=== PATIENT | female | born 1960 | race Caucasian/White ===

== ENCOUNTER 2018-01-18 13:46 | Emergency (ER) | payer MEDICARE | END 2018-01-18 15:18 | disposition home or self-care (01) | LOC: ERS 13:46 | DX: R53.1 Weakness (principal); I10 Essential (primary) hypertension; M81.0 Age-related osteoporosis without current pathological fracture; G89.29 Other chronic pain; F41.9 Anxiety disorder, unspecified; F17.210 Nicotine dependence, cigarettes, uncomplicated; Z79.899 Other long term (current) drug therapy | CPT/HCPCS: 99283 ==

== ENCOUNTER 2018-03-13 14:09 | Outpatient (CLI) | payer MEDICARE | END 2018-03-13 14:10 | disposition home or self-care (01) | LOC: BICRAD 14:09 | PROVIDERS: ATTEND Internal Medicine Gastroenterology | DX: K62.89 Other specified diseases of anus and rectum (principal); R19.7 Diarrhea, unspecified | CPT/HCPCS: 74018 ==

== ENCOUNTER 2018-04-28 13:46 | Outpatient (CLI) | payer MEDICARE | END 2018-04-28 13:47 | disposition home or self-care (01) | LOC: BICULT 13:46 | PROVIDERS: ATTEND Specialist | DX: I65.29 Occlusion and stenosis of unspecified carotid artery (principal) | CPT/HCPCS: 93880 ==

== ENCOUNTER 2018-08-16 12:32 | Outpatient (CLI) | payer MEDICARE ==
--- NOTE | 2018-08-16 15:21 | RAD ---
MODIFIED BARIUM SWALLOW IN THE PRESENCE OF SPEECH PATHOLOGIST 08/16/18 HISTORY: Dysphagia, oropharyngeal phase. Feeding difficulties, hoarseness. EXPOSURE: 2 minutes. 10.04 mGy. FINDINGS: In the presence of speech pathologist, the patient administered thin liquid, nectar thick, pudding an d solid consistencies. There is evidence of penetration with residue upon administration of thin liquid. There is a delay in initiation of swallowing with the puree and solid consistencies. Please refer to speech pathologist' s report for feeding recommendation. IMPRESSION: Please refer to speech pathologist's report for feeding recommendation. POS: [facility]
== END 2018-08-16 12:33 | disposition home or self-care (01) ==
LOC: RAD 12:32
PROVIDERS: ATTEND Otolaryngology Plastic Surgery within the Head & Neck
DX: R13.12 Dysphagia, oropharyngeal phase (principal); R63.3 Feeding difficulties; R49.0 Dysphonia
CPT/HCPCS: 74230; G8996-GN-CJ; G8997-GN-CI

== ENCOUNTER 2018-08-29 13:47 | Outpatient (CLI) | payer MEDICARE ==
--- NOTE | 2018-08-29 16:57 | MRI ---
MRI OF LUMBAR SPINE WITHOUT CONTRAST: 08/29/18 HISTORY: Lumbar spondyloarthritis. Chronic back pain. COMPARISON: None. TECHNIQUE: MRI of the lumbar spine is performed without intravenous gadolinium administration. Multisequential, multiplanar imaging is performed. FINDINGS: There is T1 narrow signal hypointensity with associated T2 and STIR hyperintensity involving the infe rior end plate of L4, superior end plate of L5 compatible with type I Modic change. There is associat ed 4 mm of anterolisthesis of L4 upon L5. Small amount of fluid in both facet joints is noted. There is mild edema involving the right pedicle at L5. Symmetric signal intensity of the psoas muscles. There is a T2 hyperintensity in the lower pole of th e right kidney measuring 1 cm compatible with a cyst. Conus medullaris terminates at the T12-L1 disc space level. T12-L1: Adequate disc hydration. No significant central canal stenosis. Neural foramina are patent. L1-L2: Adequate disc hydration. No significant central canal stenosis. Neural foramina are patent. L2-L3: Adequate disc hydration. No significant posterior disc abnormality. No significant central can al stenosis. Right neural foramen is patent. Left neural foramen is minimally narrowed. L3-L4: Adequate disc hydration. No significant loss of disc space height. No significant posterior di sc abnormality. No significant central canal stenosis. Neural foramina are patent bilaterally. L4-L5: Broad based disc bulge, ligamentum flavum thickening or facet hypertrophy result in moderate c entral canal stenosis. Moderate right and mild to moderate left foraminal narrowing. L5-S1: No significant central canal stenosis. Neural foramina are patent. IMPRESSION: 1. Type I Modic changes L4-L5 with associated edema involving the posterior elements on the righ t at L5. 2. Moderate central canal stenosis at L4-L5. POS: [facility]
== END 2018-08-29 13:48 | disposition home or self-care (01) ==
LOC: BICMRI 13:47
PROVIDERS: ATTEND Specialist
DX: M47.896 Other spondylosis, lumbar region (principal); M48.061 Spinal stenosis, lumbar region without neurogenic claudication
CPT/HCPCS: 72148

== ENCOUNTER 2018-10-09 11:40 | Emergency (ER) | payer MEDICARE ==
[2018-10-09] MEDS ORDERED: Ketorolac Tromethamine 30 MG/ML VIAL ONE (13:15)
== END 2018-10-09 13:20 | disposition home or self-care (01) ==
LOC: ERS 11:40
DX: G89.29 Other chronic pain (principal); M54.5 Low back pain; I10 Essential (primary) hypertension; M81.0 Age-related osteoporosis without current pathological fracture; F41.9 Anxiety disorder, unspecified; F17.210 Nicotine dependence, cigarettes, uncomplicated; Z79.899 Other long term (current) drug therapy
CPT/HCPCS: 96372; J1885

== ENCOUNTER 2018-10-11 11:07 | Emergency (ER) | payer MEDICARE ==
[2018-10-11] MEDS ORDERED: Ketorolac Tromethamine 60 MG/2 ML VIAL ONE (11:34)
== END 2018-10-11 11:54 | disposition home or self-care (01) ==
LOC: ERS 11:07
DX: G89.29 Other chronic pain (principal); M54.9 Dorsalgia, unspecified; I10 Essential (primary) hypertension; F17.210 Nicotine dependence, cigarettes, uncomplicated; F41.9 Anxiety disorder, unspecified; Z79.899 Other long term (current) drug therapy
CPT/HCPCS: 96372; J1885

== ENCOUNTER 2019-02-16 12:18 | Outpatient (CLI) | payer MEDICARE ==
--- NOTE | 2019-02-16 15:25 | RAD ---
BARIUM SWALLOW: HISTORY: Dysphagia. The patient feels that things get stuck in her throat. COMPARISON: 05/24/2017 FINDINGS: A double-contrast barium swallow is performed with air and barium. Esophageal motility is normal. N o esophageal strictures are seen. the patient aspirated a small amount of barium during the examinat ion, which was initially seen with administration of the barium tablet with water. The barium tablet paused initially at the gastroesophageal junction but eventually passed into the stomach, with an ad ditional sip of water. No gastroesophageal reflux is seen during the examination. There is no evidence of a hiatal hernia. IMPRESSION: 1. No esophageal abnormality or stricture. 2. There was aspiration of a small amount of barium. POS: [facility]
== END 2019-02-16 12:19 | disposition home or self-care (01) ==
LOC: RAD 12:18
PROVIDERS: ATTEND Physician Assistant Medical
DX: R13.12 Dysphagia, oropharyngeal phase (principal)
CPT/HCPCS: 74220

== ENCOUNTER 2019-05-10 13:56 | Outpatient (CLI) | payer MEDICARE ==
--- NOTE | 2019-05-10 14:18 | RAD ---
XR Lumbar Spine Min 4 View History: Low back pain Comparison: MRI August 2018 Findings: Moderate dextro scoliosis lumbar spine. Asymmetric right worse than left SI joint degenerat shadi disease. No acute fracture or malalignment. There is 2 mm L4 over L5 anterolisthesis. Multilevel degenerative disc space height loss. No dilated loops of bowel. Impression: Chronic degenerative changes. No acute fracture or malalignment.
== END 2019-05-10 13:57 | disposition home or self-care (01) ==
LOC: BICRAD 13:56
PROVIDERS: ATTEND Specialist
DX: M54.5 Low back pain (principal); M47.816 Spondylosis without myelopathy or radiculopathy, lumbar region
CPT/HCPCS: 72110

== ENCOUNTER 2019-05-26 19:02 | Emergency (ER) | payer MEDICARE ==
--- NOTE | 2019-05-26 20:14 | RAD ---
EXAM: Chest one view: HISTORY: Altered mental status COMPARISON: 08/07/2016 FINDINGS: Heart size: Within normal limits. Lungs: Clear of acute process. No evidence for pneumonia, pleural effusion, acute edema, or pneumothorax, or other significant acute process. IMPRESSION: No significant acute intrathoracic disease.
[2019-05-26 20:35] LABS: #Basophils 0.1 thou/uL (0.0-0.2); #Lymphocytes 1.5 thou/uL (1.20-3.40); #Monocytes 0.9 thou/uL (0.11-0.59); #Neutrophils 8.3 thou/uL (1.40-6.50); %Basophils 0.5 % (0.0-1.0); %Eosinophils 0.4 % (0.0-10.0); %Lymphocytes 13.5 % (21.0-51.0); %Neutrophils 77.6 % (42.0-75.0); Hemoglobin 13.3 g/dL (12.0-16.0); Mean Corpuscular HGB CONC 34.4 g/dL (32.0-36.0); Mean Corpuscular Hemoglobin 34.2 pg (27.0-31.0); Mean Corpuscular Volume 99.5 fL (78.0-98.0); Mean Platelet Volume 7.2 fL (7.4-10.4); Platelet Count 280 thou/uL (130-400); Red Blood Cell (RBC) Count 3.89 mill/uL (4.20-5.40); White Blood Cell (WBC) Count 10.7 thou/uL (4.8-10.8)
[2019-05-26 20:53] LABS: ALT (SGPT) 22 U/L (8-55); AST (SGOT) 21 U/L (5-34); Acetaminophen Less than 6.0 mcg/mL (10.0-30.0); Albumin 3.8 g/dL (3.5-5.0); Alcohol Less than 10 mg/dL (Less than 10); Alkaline Phosphatase 102 U/L (40-150); Anion Gap 13 mmol/L (10-20); BUN (Urea Nitrogen) 5 mg/dL (9.8-20.1); Bilirubin, Total 0.7 mg/dL (0.2-1.2); Calc. Creatinine Clearance 0 mL/min (70-130); Calcium 8.5 mg/dL (7.8-10.44); Carbon Dioxide 21 mmol/L (22-29); Chloride 97 mmol/L (98-107); Estimated GFR-MDRD Greater than 90; Glucose 124 mg/dL (70-105); Magnesium 1.4 mg/dL (1.6-2.6); Potassium 3.1 mmol/L (3.5-5.1); Protein, Total 6.8 g/dL (6.0-8.3); Salicylate Less than 8.0 mg/dL (15.0-30.0); Sodium 128 mmol/L (136-145)
[2019-05-26] MEDS ORDERED: HYDROcodone/Acetaminophen 10/325 mg Tablet ONE (21:40)
== END 2019-05-26 21:48 | disposition home or self-care (01) ==
LOC: ERS 19:02
DX: M54.5 Low back pain (principal); G89.29 Other chronic pain; F41.9 Anxiety disorder, unspecified; F17.210 Nicotine dependence, cigarettes, uncomplicated; I10 Essential (primary) hypertension; M81.0 Age-related osteoporosis without current pathological fracture
CPT/HCPCS: 36415; 71045; 80053; 80307; 83690; 83735; 84484; 85025; 96360

== ENCOUNTER 2019-06-06 13:28 | Outpatient (CLI) | payer MEDICARE ==
--- NOTE | 2019-06-06 15:52 | CT ---
CT lumbar spine noncontrast HISTORY: Fall. Low back injury. FINDINGS: Images including the retroperitoneum show prominent calcification throughout the arterial s tructures. Vertebral body heights of lumbar spine are maintained. Osseous structures are diffusely demineralized . T12-L1, L1-2, L2-3, L3-4: Mild osteophytosis. No significant central canal or foraminal stenoses. L4-5: Disc space narrowing, gas disc phenomenon, and prominent sclerotic endplate changes. Grade 1 de generative spondylolisthesis. Prominent posterior disc bulge and circumferential degenerative changes. Severe stenosis of the central canal and right neural foramen. Moderate stenosis of the left neural foramen. L5-S1: Minimal disc bulge. Osteophytosis of the facets. Thecal sac and neural foramina remain patent. IMPRESSION: No evidence of acute lumbar compression fracture. Severe degenerative changes at the L4-5 level, including severe central canal and right foraminal miranda noses. Osteoporosis. Atherosclerosis.
== END 2019-06-06 13:29 | disposition home or self-care (01) ==
LOC: BICCT 13:28
PROVIDERS: ATTEND Specialist
DX: S39.92XA Unspecified injury of lower back, initial encounter (principal); M47.816 Spondylosis without myelopathy or radiculopathy, lumbar region; M48.061 Spinal stenosis, lumbar region without neurogenic claudication; I70.90 Unspecified atherosclerosis; M85.88 Other specified disorders of bone density and structure, other site
CPT/HCPCS: 72131

== ENCOUNTER 2019-08-22 11:05 | Emergency (ER) | payer MEDICARE ==
[2019-08-22] MEDS ORDERED: HYDROcodone/Acetaminophen 5/325 mg Tablet ONE (14:14)
== END 2019-08-22 12:24 | disposition home or self-care (01) ==
LOC: ERS 11:05
DX: R19.7 Diarrhea, unspecified (principal); G89.29 Other chronic pain
CPT/HCPCS: 99283

== ENCOUNTER 2019-09-15 16:21 | Inpatient (IN) | payer MEDICARE ==
--- NOTE | 2019-09-15 16:40 | RAD ---
EXAM: Single view of the chest HISTORY: Chest pain COMPARISON: 05/26/2019 FINDINGS: Single view of the chest shows a normal sized cardiomediastinal silhouette. There is no dexter dence of consolidation, mass, or pleural effusion. The bones are unremarkable. IMPRESSION: No evidence of acute cardiopulmonary disease
[2019-09-15 16:43] LABS: #Basophils 0.1 thou/uL (0.0-0.2); #Eosinphils 0.1 thou/uL (0.0-0.7); #Lymphocytes 2.4 thou/uL (1.20-3.40); #Monocytes 0.8 thou/uL (0.11-0.59); %Eosinophils 0.9 % (0.0-10.0); %Lymphocytes 28.7 % (21.0-51.0); %Monocytes 9.6 % (0.0-10.0); %Neutrophils 59.8 % (42.0-75.0); Hemoglobin 14.8 g/dL (12.0-16.0); Mean Corpuscular HGB CONC 34.3 g/dL (32.0-36.0); Mean Corpuscular Hemoglobin 32.8 pg (27.0-31.0); Mean Corpuscular Volume 95.7 fL (78.0-98.0); Mean Platelet Volume 6.6 fL (7.4-10.4); Platelet Count 368 thou/uL (130-400); RBC Distribution Width 12.9 % (11.5-14.5); White Blood Cell (WBC) Count 8.4 thou/uL (4.8-10.8)
[2019-09-15 17:01] LABS: ALT (SGPT) 8 U/L (8-55); AST (SGOT) 16 U/L (5-34); Albumin 3.5 g/dL (3.5-5.0); Alkaline Phosphatase 82 U/L (40-110); Anion Gap 15 mmol/L (10-20); BUN (Urea Nitrogen) Less than 4 mg/dL (9.8-20.1); Bilirubin, Total 0.7 mg/dL (0.2-1.2); CK (CPK) 74 U/L (29-168); Calc. Creatinine Clearance 0 mL/min (70-130); Calcium 8.6 mg/dL (7.8-10.44); Carbon Dioxide 32 mmol/L (22-29); Chloride 88 mmol/L (98-107); Estimated GFR-MDRD Greater than 90; Glucose 87 mg/dL (70-105); Protein, Total 6.5 g/dL (6.0-8.3); Sodium 133 mmol/L (136-145)
[2019-09-15 17:15] LABS: Potassium 1.9 mmol/L (3.5-5.1)
[2019-09-15 19:17] LABS: ALT (SGPT) Less than 7 U/L (8-55); AST (SGOT) 15 U/L (5-34); Albumin 3.5 g/dL (3.5-5.0); Alkaline Phosphatase 81 U/L (40-110); Anion Gap 14 mmol/L (10-20); BUN (Urea Nitrogen) Less than 4 mg/dL (9.8-20.1); Bilirubin, Total 0.7 mg/dL (0.2-1.2); Calc. Creatinine Clearance 0 mL/min (70-130); Calcium 8.8 mg/dL (7.8-10.44); Carbon Dioxide 33 mmol/L (22-29); Chloride 89 mmol/L (98-107); Estimated GFR-MDRD Greater than 90; Glucose 89 mg/dL (70-105); Protein, Total 6.5 g/dL (6.0-8.3); Sodium 134 mmol/L (136-145)
[2019-09-15 19:19] LABS: Potassium 1.9 mmol/L (3.5-5.1)
[2019-09-15] MEDS ORDERED: Potassium Chloride 20 MEQ TAB ONE (19:35)
[2019-09-15] MEDS ORDERED: Morphine 4 MG/ML VIAL ONE (19:35)
[2019-09-15] MEDS ORDERED: D5 1/2 NS w/40 mEq KCL 1,000 ML IV SCH (20:45)
[2019-09-15 23:46] VITALS: BMI 17.7
[2019-09-16] MEDS ORDERED: ALPRAZolam 1 MG TAB PO SCH ×2 (00:45→21:00)
[2019-09-16] MEDS: OxyCODONE IR 30 MG TAB PO PRN ×2 (00:52→06:33)
[2019-09-16] MEDS ORDERED: Senokot S 8.6-50 MG TAB PO PRN (05:44)
[2019-09-16] MEDS ORDERED: Acetaminophen 325 MG TAB PO PRN (05:44)
[2019-09-16] MEDS ORDERED: D5 NS w/ 40 mEq KCl 1,000 ML IV SCH (05:45)
[2019-09-16 07:42] VITALS: BP 136/73; TEMP 98.6
[2019-09-16 07:49] LABS: Anion Gap 18 mmol/L (10-20); BUN (Urea Nitrogen) Less than 4 mg/dL (9.8-20.1); Calc. Creatinine Clearance 84 mL/min (70-130); Calcium 8.5 mg/dL (7.8-10.44); Carbon Dioxide 22 mmol/L (22-29); Chloride 98 mmol/L (98-107); Estimated GFR-MDRD Greater than 90; Glucose 144 mg/dL (70-105); Magnesium 1.8 mg/dL (1.6-2.6); Potassium 3.5 mmol/L (3.5-5.1); Sodium 134 mmol/L (136-145)
[2019-09-16] MEDS ORDERED: Enoxaparin Sodium 40 MG/0.4 ML SYRINGE SC SCH (09:00)
[2019-09-16] MEDS ORDERED: FLU VACC QS2019-20(6MOS UP)/PF 60 MCG/0.5 ML SYRINGE IM ONE (09:00)
--- NOTE | 2019-09-16 09:18 | HP ---
PRIMARY CARE PHYSICIAN: Tonia Castro. CHIEF COMPLAINT: Worsening back pain and shortness of breath. HISTORY OF PRESENT ILLNESS: A 58-year-old female with known history of osteoporosis, degenerative joint disease of the spine with spinal stenosis associated with chronic back pain as well as COPD, who presents to the ED due to worsening back pain associated with shortness of breath. The patient reported feeling unwell in the last 5 days associated with poor appetite. She also noticed worsening back pain as she has ran out of her usual medications. On further questioning, the patient reported constipation with no bowel movement motion in the last 4 to 5 days. She however admitted to intermittent constipation and diarrhea and had to take Imodium when she has diarrhea. A friend had told her that she was not looking well and had asked her to go to the ER. Evaluation in the ER showed severe hypokalemia, potassium of 1.9 associated with EKG changes of U-wave. The patient was admitted for further evaluation. She was treated with potassium supplementation with improvement. The patient however denied cough, nasal congestion and said that the shortness of breath occurred yesterday while she was crying for severe back pain. She denied fever, chills, wheezing, orthopnea, exertional dyspnea. The patient reported bouts of diarrhea prior to current constipation and has not been eating well in the last few days. She also reported generalized weakness. Though the patient complained of shortness of breath on presentation to the ER, SpO2 was 98% on room air and there was no obvious respiratory distress. However, pain was 10/10. The patient this morning wants to leave the hospital as she feels well and desires to be discharged. PAST MEDICAL HISTORY: 1. Osteoporosis. 2. Osteoarthritis/degenerative joint disease of the spine. 3. Spinal stenosis. 4. Chronic back pain. 5. Anxiety. 6. COPD. PAST SURGICAL HISTORY: None. FAMILY HISTORY: Significant for coronary artery disease in sister and brother. SOCIAL HISTORY: The patient lives alone. The patient denied alcohol use. Reported smoking since 14 years, though claimed to have stopped about 5 years ago, but on subsequent evaluation, it looks like she continues to smoke 2 cigars per day. She denied recreational drug use. ALLERGIES: AZITHROMYCIN. HOME MEDICATIONS: 1. Xanax 2 mg p.o. daily at bedtime. 2. Omeprazole 40 mg p.o. daily. 3. Oxycodone 30 mg t.i.d. 4. The patient also reported using Imodium as needed and also takes some laxative at home as well. REVIEW OF SYSTEMS: 12-point review of system performed was negative other than pertinent positives and negatives included in the history of present illness. is deferred. The patient denied leg swelling, dysuria, hematuria, nausea, vomiting, hematochezia, hematemesis, fever, or chills. PHYSICAL EXAMINATION: VITAL SIGNS: Temperature 98.6, pulse 72, respiratory rate 16, SpO2 of 92% on room air, blood pressure is 136/73. GENERAL: Thin female, in no obvious distress. Afebrile. Anicteric. Acyanotic. HEENT: Normocephalic, atraumatic. Oral mucosa is moist. NECK: Supple. Nontender with good range of motion. No obvious masses or lymphadenopathy appreciated. CARDIOVASCULAR: Regular rhythm and rate with normal heart sounds 1 and 2. RESPIRATORY: Fair air entry bilaterally with no obvious crackle or rhonchi or use of accessory muscles. GI: Full, soft, nontender, nondistended with normal bowel sounds. EXTREMITIES: Pain but otherwise grossly normal looking atraumatic with no edema or erythema. METERMAN: Conscious and alert, oriented x3 with appropriate mental status. Cranial nerves 2 through 12 are grossly intact. The patient moves all extremities. The patient is ambulant. PSYCHIATRIC: The patient seems anxious. DIAGNOSTIC DATA: CBC on September 15 showed WBC count of 8.4, hemoglobin of 14.8, MCV of 95.7, platelet of 368. BMP today showed today, September 16, showed sodium 134, potassium 3.5, chloride 98, CO2 of 22, BUN less than 4, creatinine 0.53, glucose 144, calcium 8.5, magnesium 1.8. Of note, however, on presentation on September 15, the patient had the following CMP: Sodium 133, potassium 1.9, chloride 88, CO2 of 32, BUN less than 4, creatinine 0.53, glucose 87, calcium 8.6, total bilirubin 0.7, AST 16, ALT 8, alkaline phosphatase 82, CK 74, total protein 6.5, albumin 3.5, globulin 3.0. Chest x-ray performed on September 15 showed normal cardiomediastinal silhouette with no evidence of consolidation, mass or pleural effusion. EKG on presentation showed normal sinus rhythm with rate of 63. No obvious ischemic changes were noted. However, low voltages were seen. ASSESSMENT: 1. Severe hypokalemia. 2. Hyponatremia. 3. Volume depletion from poor oral intake with contraction alkalosis. 4. Gjck-fv-aneilybr protein calorie malnutrition. 5. Chronic intermittent constipation from narcotic use. 6. Chronic back pain on chronic narcotic use. 7. Chronic intermittent diarrhea. 8. Chronic tobacco abuse disorder. 9. Chronic obstructive pulmonary disease. 10. Gastroesophageal reflux disease, on PPI. 11. Anxiety disorder, on Xanax. PLAN: 1. We will continue potassium supplementation. 2. Laxative will be provided to treat constipation. 3. Bronchodilators as needed will be provided. 4. [place] oral intake as well as oral dietary supplementation will be recommended. We will monitor sodium, potassium and magnesium and replete as needed. Continue IV fluid therapy. Job ID: [id number]
--- NOTE | 2019-09-16 09:20 | DIS ---
DATE OF ADMISSION: 09/15/2019 DATE OF DISCHARGE: 09/16/2019 PRIMARY CARE PHYSICIAN: . DISCHARGE DIAGNOSES: 1. Severe hypokalemia. 2. Hyponatremia. 3. Volume depletion. 4. Constipation. 5. Mild protein calorie malnutrition. 6. Chronic back pain with acute exacerbation. 7. Chronic spinal stenosis. 8. Degenerative joint disease of the spine. 9. Chronic obstructive pulmonary disease without acute exacerbation. 10. Anxiety disorder. HOSPITAL COURSE: A 58-year-old female admitted due to worsening back pain associated with shortness of breath. Evaluation revealed severe hypokalemia as well as hyponatremia and metabolic alkalosis. The patient also reported constipation and poor oral intake. Impression of volume depletion from poor oral intake as well as severe hypokalemia from poor oral intake and chronic diarrhea was made and the patient was treated with IV fluid and potassium supplementation. She also received laxative with improvement of constipation. The patient; however, insisted on leaving even against medical advice. Decision was then made to discharge the patient with a close followup with PCP for subsequent evaluation of electrolytes and further treatment. She also was advised to start oral dietary supplement b.i.d. Prescription for potassium, magnesium, and MiraLAX were provided. DISCHARGE MEDICATIONS: 1. Omeprazole 40 mg p.o. daily. 2. Oxycodone 30 mg t.i.d. 3. Magnesium oxide 400 mg p.o. daily for 7 days. 4. MiraLAX 17 g p.o. b.i.d. x60 packs. 5. Potassium chloride 10 mEq p.o. b.i.d. for 7 days. 6. Xanax 2 mg p.o. daily at bedtime as needed. FOLLOWUP: The patient is to follow up with PCP within seven days of discharge. Job ID: [id number]
== END 2019-09-16 08:55 | disposition home or self-care (01) | DRG 641 ==
LOC: ERS 16:21 → 2NO 23:39
PROVIDERS: ADMIT Internal Medicine; ATTEND Internal Medicine
DX: E87.6 Hypokalemia (principal); E44.1 Mild protein-calorie malnutrition; Z68.1 Body mass index [BMI] 19.9 or less, adult; Z23 Encounter for immunization; E87.1 Hypo-osmolality and hyponatremia; J44.9 Chronic obstructive pulmonary disease, unspecified; K59.00 Constipation, unspecified; G89.29 Other chronic pain; F41.9 Anxiety disorder, unspecified; E87.3 Alkalosis; M81.0 Age-related osteoporosis without current pathological fracture; M19.90 Unspecified osteoarthritis, unspecified site; M48.00 Spinal stenosis, site unspecified; F17.290 Nicotine dependence, other tobacco product, uncomplicated; K59.09 Other constipation; K21.9 Gastro-esophageal reflux disease without esophagitis; K52.9 Noninfective gastroenteritis and colitis, unspecified; E86.9 Volume depletion, unspecified; Z79.899 Other long term (current) drug therapy
CPT/HCPCS: 36415; 36416; 71045; 80048; 80053; 82550; 83735; 84484; 85025; 93005; 96365; 96366; 96375; J2270; J3480; J7042

== ENCOUNTER 2019-09-19 08:26 | Emergency (ER) | payer MEDICARE ==
[2019-09-19 09:03] LABS: #Eosinphils 0.1 thou/uL (0.0-0.7); #Lymphocytes 1.8 thou/uL (1.20-3.40); #Monocytes 0.8 thou/uL (0.11-0.59); #Neutrophils 7.9 thou/uL (1.40-6.50); %Basophils 0.1 % (0.0-1.0); %Eosinophils 1.3 % (0.0-10.0); %Lymphocytes 16.8 % (21.0-51.0); %Monocytes 7.8 % (0.0-10.0); %Neutrophils 73.9 % (42.0-75.0); Hemoglobin 14.6 g/dL (12.0-16.0); Mean Corpuscular Hemoglobin 31.9 pg (27.0-31.0); Mean Corpuscular Volume 96.9 fL (78.0-98.0); Platelet Count 379 thou/uL (130-400); RBC Distribution Width 13.1 % (11.5-14.5); Red Blood Cell (RBC) Count 4.57 mill/uL (4.20-5.40); White Blood Cell (WBC) Count 10.7 thou/uL (4.8-10.8)
[2019-09-19] MEDS ORDERED: Ondansetron PF 4 MG/2 ML Vial ONE (09:05)
[2019-09-19 09:26] LABS: ALT (SGPT) 12 U/L (8-55); AST (SGOT) 24 U/L (5-34); Albumin 3.7 g/dL (3.5-5.0); Alkaline Phosphatase 88 U/L (40-110); Anion Gap 15 mmol/L (10-20); BUN (Urea Nitrogen) Less than 4 mg/dL (9.8-20.1); Bilirubin, Total 0.5 mg/dL (0.2-1.2); Calc. Creatinine Clearance 0 mL/min (70-130); Carbon Dioxide 28 mmol/L (22-29); Chloride 99 mmol/L (98-107); Estimated GFR-MDRD Greater than 90; Globulin 2.8 g/dL (2.4-3.5); Glucose 116 mg/dL (70-105); Protein, Total 6.5 g/dL (6.0-8.3); Sodium 139 mmol/L (136-145)
[2019-09-19 09:33] LABS: Potassium 2.9 mmol/L (3.5-5.1)
[2019-09-19] MEDS ORDERED: NS 0.9% w/ 20 MEQ KCL 1,000 ML IV SCH (09:45)
== END 2019-09-19 12:31 | disposition home or self-care (01) ==
LOC: ERS 08:26
DX: E87.6 Hypokalemia (principal); F17.210 Nicotine dependence, cigarettes, uncomplicated; M19.90 Unspecified osteoarthritis, unspecified site; Z79.899 Other long term (current) drug therapy; Z91.19 Patient's noncompliance with other medical treatment and regimen
CPT/HCPCS: 36415; 80053; 84484; 85025; 93005; J2405; J3480

== ENCOUNTER 2019-09-19 19:39 | Emergency (ER) | payer MEDICARE ==
[2019-09-19] MEDS ORDERED: Naloxone HCl 2 mg/2 ml Syringe ONE (19:49)
--- NOTE | 2019-09-19 20:28 | CT ---
CT Head without IV contrast COMPARISON: 03/23/2012 HISTORY: Altered mental status. TECHNIQUE: Axial CT imaging at 5 mm intervals from vertex through skull base without contrast FINDINGS: There is no evidence of an acute infarction, hemorrhage, mass effect, or midline shift. There is decr eased attenuation seen in the periventricular white matter which is nonspecific but likely attributable to chronic small vessel ischemic changes. There is mild cerebral volume loss. The ventri cular system is normal in size, shape, and position for the degree of sulcal atrophy. Visualized paranasal sinuses are clear. Osseous structures appear intact. No other interval change. IMPRESSION: 1. No acute intracranial abnormality demonstrated. additional findings
[2019-09-19 21:18] LABS: #Basophils 0.1 thou/uL (0.0-0.2); #Eosinphils 0.1 thou/uL (0.0-0.7); #Lymphocytes 2.6 thou/uL (1.20-3.40); #Monocytes 0.8 thou/uL (0.11-0.59); #Neutrophils 4.8 thou/uL (1.40-6.50); %Basophils 1.2 % (0.0-1.0); %Eosinophils 1.3 % (0.0-10.0); %Lymphocytes 31.1 % (21.0-51.0); %Monocytes 8.9 % (0.0-10.0); %Neutrophils 57.6 % (42.0-75.0); Hemoglobin 14.2 g/dL (12.0-16.0); Mean Corpuscular HGB CONC 32.4 g/dL (32.0-36.0); Mean Corpuscular Hemoglobin 31.4 pg (27.0-31.0); Mean Corpuscular Volume 96.7 fL (78.0-98.0); Platelet Count 395 thou/uL (130-400); RBC Distribution Width 13.2 % (11.5-14.5); Red Blood Cell (RBC) Count 4.53 mill/uL (4.20-5.40); White Blood Cell (WBC) Count 8.4 thou/uL (4.8-10.8)
[2019-09-19 21:34] LABS: Acetaminophen Less than 6.0 mcg/mL (10.0-30.0); Alcohol Less than 10 mg/dL (Less than 10); Salicylate Less than 8.0 mg/dL (15.0-30.0)
[2019-09-19 21:36] LABS: ALT (SGPT) 12 U/L (8-55); AST (SGOT) 23 U/L (5-34); Albumin 3.8 g/dL (3.5-5.0); Alkaline Phosphatase 89 U/L (40-110); Anion Gap 15 mmol/L (10-20); BUN (Urea Nitrogen) Less than 4 mg/dL (9.8-20.1); Bilirubin, Total 0.5 mg/dL (0.2-1.2); CK (CPK) 48 U/L (29-168); Calc. Creatinine Clearance 0 mL/min (70-130); Calcium 8.9 mg/dL (7.8-10.44); Carbon Dioxide 26 mmol/L (22-29); Chloride 101 mmol/L (98-107); Estimated GFR-MDRD Greater than 90; Globulin 3.1 g/dL (2.4-3.5); Glucose 107 mg/dL (70-105); Lipase 38 U/L (8-78); Potassium 3.6 mmol/L (3.5-5.1); Protein, Total 6.9 g/dL (6.0-8.3); Sodium 138 mmol/L (136-145)
== END 2019-09-19 21:52 | disposition home or self-care (01) ==
LOC: ERS 19:39
DX: M54.9 Dorsalgia, unspecified (principal); T40.2X5A Adverse effect of other opioids, initial encounter; G89.29 Other chronic pain; F41.9 Anxiety disorder, unspecified; M19.90 Unspecified osteoarthritis, unspecified site; F17.210 Nicotine dependence, cigarettes, uncomplicated; Z79.899 Other long term (current) drug therapy
CPT/HCPCS: 36415; 70450; 80053; 80307; 82140; 82550; 83690; 84443; 84484; 85025; 85652; 86140; 93005; 96365; 96366; J2310; J2405; J3480

== ENCOUNTER 2019-09-20 10:49 | Inpatient (IN) | payer MEDICARE ==
[2019-09-20 11:56] LABS: #Lymphocytes 1.8 thou/uL (1.20-3.40); #Monocytes 0.5 thou/uL (0.11-0.59); #Neutrophils 5.6 thou/uL (1.40-6.50); %Basophils 0.4 % (0.0-1.0); %Eosinophils 0.5 % (0.0-10.0); %Lymphocytes 22.3 % (21.0-51.0); %Monocytes 6.5 % (0.0-10.0); %Neutrophils 70.4 % (42.0-75.0); Hemoglobin 14.5 g/dL (12.0-16.0); Mean Corpuscular HGB CONC 33.1 g/dL (32.0-36.0); Mean Corpuscular Volume 96.7 fL (78.0-98.0); Mean Platelet Volume 8.4 fL (7.4-10.4); Platelet Count 400 thou/uL (130-400); RBC Distribution Width 13.5 % (11.5-14.5); Red Blood Cell (RBC) Count 4.54 mill/uL (4.20-5.40)
[2019-09-20 12:55] LABS: ALT (SGPT) 13 U/L (8-55); AST (SGOT) 21 U/L (5-34); Alkaline Phosphatase 94 U/L (40-110); Anion Gap 16 mmol/L (10-20); BUN (Urea Nitrogen) Less than 4 mg/dL (9.8-20.1); Bilirubin, Total 0.6 mg/dL (0.2-1.2); Calc. Creatinine Clearance 0 mL/min (70-130); Carbon Dioxide 23 mmol/L (22-29); Chloride 98 mmol/L (98-107); Estimated GFR-MDRD Greater than 90; Globulin 3.2 g/dL (2.4-3.5); Glucose 110 mg/dL (70-105); Protein, Total 7.2 g/dL (6.0-8.3); Sodium 134 mmol/L (136-145)
[2019-09-20 12:56] LABS: Acetaminophen Less than 6.0 mcg/mL (10.0-30.0); Alcohol Less than 10 mg/dL (Less than 10); CK (CPK) 51 U/L (29-168); Salicylate Less than 8.0 mg/dL (15.0-30.0)
[2019-09-20 12:58] LABS: Potassium 2.7 mmol/L (3.5-5.1)
[2019-09-20] MEDS ORDERED: Potassium Chloride 20 MEQ TAB ONE (13:32)
[2019-09-20] MEDS ORDERED: Lorazepam 2 MG/ML VIAL ONE (14:37)
[2019-09-20] MEDS ORDERED: Magnesium 2 GM/50 ML BAG (IN WATER) ONE (15:03)
[2019-09-20 16:34] LABS: Bilirubin Negative (Negative); Blood, Urine Negative (Negative); Clarity Turbid (Clear); Glucose, Urine (Dipstick) Normal (Negative); Leukocyte Negative Leu/uL (Negative); Nitrite Negative (Negative); Protein, Urine (Dipstick) Negative (Neg-Trace); Urobilinogen Normal mg/dL (Less than 2)
[2019-09-20 16:40] LABS: Troponin I Less than 0.010 ng/mL (< 0.028)
[2019-09-20] MEDS ORDERED: Lorazepam 2 MG/ML VIAL SLOW IVP PRN (16:41)
[2019-09-20] MEDS ORDERED: Ondansetron ODT 4 MG TAB PO PRN (16:41)
[2019-09-20] MEDS ORDERED: Bisacodyl 10 MG SUPP PR PRN (16:41)
[2019-09-20] MEDS ORDERED: Ondansetron PF 4 MG/2 ML Vial IVP PRN (16:41)
[2019-09-20] MEDS ORDERED: Senokot S 8.6-50 MG TAB PO PRN (16:41)
[2019-09-20] MEDS ORDERED: Acetaminophen 325 MG TAB PO PRN (16:41)
[2019-09-20 16:48] LABS: Amphetamine Not Detected (NotDetected); Barbiturates Screen Not Detected (NotDetected); Benzodiazepine Screen Detected (NotDetected); Cocaine Metabolite Screen Not Detected (NotDetected); Medtox Control Line Valid? VALID (VALID); Medtox Reader # READER 4; Methadone Not Detected (NotDetected); Methamphetamine Not Detected (NotDetected); Opiate Screen Not Detected (NotDetected); Oxycodone Screen Not Detected (NotDetected); Phencyclidine (PCP) Not Detected (NotDetected); THC/Cannabinoid Screen Not Detected (NotDetected); Tricyclic Screen Not Detected (NotDetected)
[2019-09-20 20:14] VITALS: BMI 18.1
[2019-09-20] MEDS ORDERED: Famotidine/PF 20 mg/2ml Vial SLOW IVP SCH (21:00)
[2019-09-20] MEDS ORDERED: Famotidine 20 MG TAB PO SCH (21:00)
[2019-09-20] MEDS: Potassium Chloride 20 MEQ TAB PO SCH ×2 (23:39→23:41)
[2019-09-20] MEDS: Nicotine 21 MG PATCH TD SCH (23:41)
[2019-09-20] MEDS: ALPRAZolam 1 MG TAB PO PRN (23:41)
[2019-09-21] MEDS ORDERED: Potassium Chloride 20 MEQ in Premix Bag 1 BAG IVPB SCH (02:30)
[2019-09-21] MEDS ORDERED: Lorazepam 2 MG/ML VIAL SLOW IVP SCH ×2 (03:45)
[2019-09-21] MEDS: Potassium Chloride 20 MEQ TAB PO SCH ×2 (03:58→20:23)
[2019-09-21] MEDS: HYDROcodone/Acetaminophen 10/325 mg Tablet PO PRN ×3 (05:37→20:23)
[2019-09-21] MEDS: Enoxaparin Sodium 30 MG/0.3 ML SYRINGE SC SCH (09:04)
[2019-09-21] MEDS: Polyethylene Glycol 3350 17 GM Packet PO SCH (09:04)
[2019-09-21] MEDS: HYDROcodone/Acetaminophen 5/325 mg Tablet PO PRN (09:05)
[2019-09-21] MEDS: ALPRAZolam 1 MG TAB PO PRN ×3 (09:05→20:23)
[2019-09-21 12:50] LABS: Potassium 3.1 mmol/L (3.5-5.1)
[2019-09-21 12:58] LABS: Anion Gap 16 mmol/L (10-20); BUN (Urea Nitrogen) 6 mg/dL (9.8-20.1); CK (CPK) 59 U/L (29-168); Calc. Creatinine Clearance 61 mL/min (70-130); Calcium 9.4 mg/dL (7.8-10.44); Carbon Dioxide 27 mmol/L (22-29); Chloride 99 mmol/L (98-107); Estimated GFR-MDRD 79; Glucose 99 mg/dL (70-105); Magnesium 2.3 mg/dL (1.6-2.6); Phosphorus 3.3 mg/dL (2.3-4.7); Potassium 3.1 mmol/L (3.5-5.1); Sodium 139 mmol/L (136-145)
[2019-09-21] MEDS ORDERED: Potassium Chloride 20 MEQ TAB PO SCH (15:00)
--- NOTE | 2019-09-21 15:23 | PDOC.HOSPP ---
- Subjective Encounter Date: 09/21/19 Encounter Time: 15:21 Subjective: 58 y/o female admitted with worsening back pain and found to have hypokalemia. Also had a seizure episode in the ER. Feeling better. No fever or SOB. - Objective Vital Signs & Weight: Vital Signs (12 hours) Temp Pulse Resp BP Pulse Ox 09/21/19 11:00 99.0 F 76 16 133/68 96 09/21/19 07:00 98.3 F 71 16 146/69 H 96 09/21/19 03:39 97.8 F 73 95 Weight Admit Weight 106 lb Weight 106 lb I&O: 09/20/19 09/21/19 09/22/19 06:59 06:59 06:59 Intake Total 120 100 Balance 120 100 Result Diagrams: 09/20/19 11:37 09/21/19 12:24 Hospitalist ROS - Medication Medications: Active Medications Generic Name Dose Route Start Last Admin Trade Name Freq PRN Reason Stop Dose Admin Hydrocodone Bitart/Acetaminophen 1 tab 09/20/19 16:41 09/21/19 12:31 [place] 10/325 PO 1 tab Q4H PRN Administration Severe Pain (7-10) Hydrocodone Bitart/Acetaminophen 1 tab 09/20/19 16:41 09/21/19 09:05 [place] 5/325 PO 1 tab Q4H PRN Administration Moderate Pain (4-6) Alprazolam 2 mg 09/20/19 23:15 09/21/19 12:30 Xanax PO 2 mg TIDPRN PRN Administration Anxiety Enoxaparin Sodium 30 mg 09/21/19 09:00 09/21/19 09:04 Lovenox SC Not Given 0900 SU[facility] Nicotine 21 mg 09/20/19 21:00 09/20/19 23:41 Nicoderm Patch TD 21 mg Q24HR SUMA Administration Pantoprazole Sodium 40 mg 09/21/19 09:00 09/21/19 09:04 Protonix PO 40 mg DAILY [facility] Administration Polyethylene Glycol 17 gm 09/21/19 09:00 09/21/19 09:04 Miralax PO Not Given DAILY [facility] - Exam General Appearance: awake alert Eye: anicteric sclera ENT: normocephalic atraumatic Neck: supple, no JVD Heart: RRR Respiratory: no wheezes, no rales, no ronchi Gastrointestinal: soft, non-tender, non-distended, normal bowel sounds Extremities: no cyanosis, no edema Neurological: cranial nerve grossly intact, no focal deficits Psychiatric: normal affect, A&O x 3 Hosp A/P (1) Seizure Code(s): R56.9 - UNSPECIFIED CONVULSIONS Status: Acute (2) Hypokalemia Code(s): E87.6 - HYPOKALEMIA Status: Acute (3) Hypomagnesemia Code(s): E83.42 - HYPOMAGNESEMIA Status: Acute (4) Elevated troponin Code(s): R79.89 - OTHER SPECIFIED ABNORMAL FINDINGS OF BLOOD CHEMISTRY Status : Acute (5) Acute exacerbation of chronic low back pain Code(s): M54.5 - LOW BACK PAIN; G89.29 - OTHER CHRONIC PAIN Status: Acute (6) Anxiety Code(s): F41.9 - ANXIETY DISORDER, UNSPECIFIED Status: Acute (7) COPD (chronic obstructive pulmonary disease) Status: Acute (8) Tobacco abuse disorder Code(s): Z72.0 - TOBACCO USE Status: Acute - Plan Replete serum potassium Get Echo. Continue analgesic as needed consult neurology. Continue nicotine patch Get [facility]
[2019-09-21] MEDS: hydrOXYzine 25 MG TAB PO SCH ×2 (20:23→20:28)
[2019-09-21] MEDS: Nicotine 21 MG PATCH TD SCH (20:24)
--- NOTE | 2019-09-21 22:49 | CON ---
DATE OF TELEMEDICINE CONSULTATION: 09/21/2019 CHIEF COMPLAINT: Dizziness. HISTORY OF PRESENT ILLNESS: The patient reports she was at home, started feeling weird, felt dizzy and she is not sure what happened to her. Per chart review, the patient is currently admitted for possible worsening of her back pain and she is also altered per the ER record and she was brought in with withdrawal of pain medications as well. She was also noted to have hypokalemia and her brother brought her in and he was apparently concerned whether she was using drugs. PAST MEDICAL HISTORY: She is healthy other than rheumatoid arthritis and pain secondary to arthritis and some anxiety. PAST SURGICAL HISTORY: None. FAMILY HISTORY: She has 1 brother who is 67 and healthy. Parents young. SOCIAL HISTORY: She is nonsmoker. No alcohol. Lives by self. LABORATORY WORKUP: White count 8, hemoglobin 14.5, hematocrit 43.8, platelet count 400. Sodium 139, potassium 3.1, chloride 99, bicarb 27, BUN 6, creatinine 0.75 , and troponin as noted, prolactin 3.15. Urine toxicology positive for benzodiazepines. After I completed taking her medical history, the patient refused to discuss anymore. She said she is tired of answering these questions and does not feel like talking to us and asked us to leave. No further examination was completed due to her lack of cooperation and her request for us to leave. We will attempt to see her again tomorrow. Second attempt to see her was made 09-22-19 and she refused. Job ID: [id number] MTDD
[2019-09-22] MEDS: Potassium Chloride 20 MEQ TAB PO SCH (02:12)
[2019-09-22] MEDS: HYDROcodone/Acetaminophen 10/325 mg Tablet PO PRN ×3 (03:41→23:44)
[2019-09-22 04:21] LABS: Albumin 3.3 g/dL (3.5-5.0); Anion Gap 15 mmol/L (10-20); BUN (Urea Nitrogen) 7 mg/dL (9.8-20.1); BUN/Creatinine Ratio 11.48; Calc. Creatinine Clearance 74 mL/min (70-130); Calcium 8.8 mg/dL (7.8-10.44); Carbon Dioxide 22 mmol/L (22-29); Chloride 104 mmol/L (98-107); Estimated GFR-MDRD Greater than 90; Glucose 91 mg/dL (70-105); Phosphorus 3.1 mg/dL (2.3-4.7); Sodium 138 mmol/L (136-145)
[2019-09-22 04:23] LABS: Troponin I Less than 0.010 ng/mL (< 0.028)
[2019-09-22 04:28] LABS: Potassium 2.8 mmol/L (3.5-5.1)
[2019-09-22] MEDS ORDERED: Potassium Chloride 20 MEQ TAB PO SCH ×2 (05:00→12:00)
[2019-09-22] MEDS: HYDROcodone/Acetaminophen 5/325 mg Tablet PO PRN ×2 (07:44→17:01)
[2019-09-22] MEDS: ALPRAZolam 1 MG TAB PO PRN ×3 (07:45→19:48)
[2019-09-22] MEDS: Enoxaparin Sodium 30 MG/0.3 ML SYRINGE SC SCH (09:28)
[2019-09-22] MEDS: hydrOXYzine 25 MG TAB PO SCH ×3 (09:29→19:47)
[2019-09-22] MEDS: Polyethylene Glycol 3350 17 GM Packet PO SCH (09:29)
[2019-09-22] MEDS: Lidocaine 5% Patch TD SCH (09:29)
[2019-09-22] MEDS: Magnesium Oxide 400 MG TAB PO SCH (09:29)
[2019-09-22] MEDS: Cholestyramine/Aspartame 4 gm Packet PO SCH ×2 (11:15→23:04)
--- NOTE | 2019-09-22 11:34 | PDOC.HOSPP ---
- Subjective Encounter Date: 09/22/19 Encounter Time: 09:32 Subjective: 58 y/o female with COPD and chronic pain admitted with worsening back pain and found to have hypokalemia. Also had a seizure episode in the ER. Feeling better. No fever or SOB. Refusing potassium supplementation. Having loose stools this am. reported chroinic intermittent diarrhea. No fever, chest pain or SOB. - Objective Vital Signs & Weight: Vital Signs (12 hours) Temp Pulse Resp BP Pulse Ox 09/22/19 07:00 98.6 F 72 16 126/72 96 09/22/19 03:30 98.5 F 56 L 17 131/63 96 Weight Admit Weight 106 lb Weight 106 lb I&O: 09/21/19 09/22/19 09/23/19 06:59 06:59 06:59 Intake Total 120 1070 Balance 120 1070 Result Diagrams: 09/20/19 11:37 09/22/19 03:27 Hospitalist ROS - Medication Medications: Active Medications Generic Name Dose Route Start Last Admin Trade Name Freq PRN Reason Stop Dose Admin Hydrocodone Bitart/Acetaminophen 1 tab 09/20/19 16:41 09/22/19 11:22 [place] 10/325 PO 1 tab Q4H PRN Administration Severe Pain (7-10) Hydrocodone Bitart/Acetaminophen 1 tab 09/20/19 16:41 09/22/19 07:44 [place] 5/325 PO 1 tab Q4H PRN Administration Moderate Pain (4-6) Alprazolam 2 mg 09/20/19 23:15 09/22/19 11:22 Xanax PO 2 mg TIDPRN PRN Administration Anxiety Cholestyramine Resin 4 gm 09/22/19 10:00 09/22/19 11:15 [place] PO 4 gm 1000,2200 SUMA Administration Enoxaparin Sodium 30 mg 09/21/19 09:00 09/22/19 09:28 Lovenox SC Not Given 0900 SUMA Hydroxyzine HCl 25 mg 09/21/19 21:00 09/22/19 09:29 Atarax PO Not Given TID SUMA Lidocaine 1 patch 09/22/19 09:00 09/22/19 09:29 Lidoderm 5% Patch TD Not Given DAILY [facility] Magnesium Oxide 400 mg 09/22/19 09:00 09/22/19 09:29 Magnesium Oxide PO Not Given DAILY [facility] Nicotine 21 mg 09/20/19 21:00 09/21/19 20:24 Nicoderm Patch TD Not Given Q24HR [facility] Pantoprazole Sodium 40 mg 09/21/19 09:00 09/22/19 09:29 Protonix PO Not Given DAILY [facility] Polyethylene Glycol 17 gm 09/21/19 09:00 09/22/19 09:29 Miralax PO Not Given DAILY [facility] Potassium Chloride 60 meq 09/22/19 05:45 09/22/19 09:28 Klor-Con PO 09/22/19 11:46 60 meq Q3H [facility] Administration - Exam General Appearance: awake alert General - other findings: thin female ENT: normocephalic atraumatic Neck: no JVD Heart: RRR Respiratory: no wheezes, no rales, no ronchi, normal chest expansion Gastrointestinal: soft, non-tender, non-distended, normal bowel sounds Extremities: no cyanosis, no edema Neurological: cranial nerve grossly intact, no focal deficits Musculoskeletal: diffuse muscle atrophy Psychiatric: A&O x 3 Hosp A/P (1) Hypokalemia Code(s): E87.6 - HYPOKALEMIA Status: Acute (2) Seizure Code(s): R56.9 - UNSPECIFIED CONVULSIONS Status: Acute (3) Hypomagnesemia Code(s): E83.42 - HYPOMAGNESEMIA Status: Acute (4) Elevated troponin Code(s): R79.89 - OTHER SPECIFIED ABNORMAL FINDINGS OF BLOOD CHEMISTRY Status : Acute (5) Acute exacerbation of chronic low back pain Code(s): M54.5 - LOW BACK PAIN; G89.29 - OTHER CHRONIC PAIN Status: Acute (6) Anxiety Code(s): F41.9 - ANXIETY DISORDER, UNSPECIFIED Status: Acute (7) COPD (chronic obstructive pulmonary disease) Status: Acute (8) Tobacco abuse disorder Code(s): Z72.0 - TOBACCO USE Status: Acute (9) Chronic diarrhea Code(s): K52.9 - NONINFECTIVE GASTROENTERITIS AND COLITIS, UNSPECIFIED Status : Acute (10) Moderate protein-calorie malnutrition Code(s): E44.0 - MODERATE PROTEIN-CALORIE MALNUTRITION Status: Acute - Plan Replete serum potassium. Need to be compliance emphasized. Get stool analysis. Start cholestyramine Await Echo. Continue analgesic as needed Continue nicotine patch Get repeat serum potassium and replete if indicated. Start Oral supplement
[2019-09-22 18:41] LABS: Anion Gap 16 mmol/L (10-20); BUN (Urea Nitrogen) 7 mg/dL (9.8-20.1); Calc. Creatinine Clearance 74 mL/min (70-130); Carbon Dioxide 16 mmol/L (22-29); Chloride 108 mmol/L (98-107); Estimated GFR-MDRD Greater than 90; Glucose 105 mg/dL (70-105); Potassium 4.9 mmol/L (3.5-5.1); Sodium 135 mmol/L (136-145)
[2019-09-22] MEDS ORDERED: Lidocaine Patch Removal TOP SCH (21:00)
[2019-09-22] MEDS: Nicotine 21 MG PATCH TD SCH (23:04)
[2019-09-23 06:12] LABS: #Basophils 0.1 thou/uL (0.0-0.2); #Eosinphils 0.1 thou/uL (0.0-0.7); #Lymphocytes 2.6 thou/uL (1.20-3.40); #Monocytes 0.7 thou/uL (0.11-0.59); #Neutrophils 3.3 thou/uL (1.40-6.50); %Basophils 1.2 % (0.0-1.0); %Lymphocytes 38.8 % (21.0-51.0); %Monocytes 9.9 % (0.0-10.0); %Neutrophils 48.1 % (42.0-75.0); Hemoglobin 13.3 g/dL (12.0-16.0); Mean Corpuscular Hemoglobin 31.2 pg (27.0-31.0); Mean Corpuscular Volume 97.6 fL (78.0-98.0); Mean Platelet Volume 8.8 fL (7.4-10.4); Platelet Count 315 thou/uL (130-400); RBC Distribution Width 13.4 % (11.5-14.5); Red Blood Cell (RBC) Count 4.26 mill/uL (4.20-5.40); White Blood Cell (WBC) Count 6.8 thou/uL (4.8-10.8)
[2019-09-23 06:29] LABS: Albumin 3.5 g/dL (3.5-5.0); Anion Gap 12 mmol/L (10-20); BUN (Urea Nitrogen) 7 mg/dL (9.8-20.1); BUN/Creatinine Ratio 12.07; Calc. Creatinine Clearance 78 mL/min (70-130); Carbon Dioxide 22 mmol/L (22-29); Chloride 107 mmol/L (98-107); Estimated GFR-MDRD Greater than 90; Glucose 91 mg/dL (70-105); Phosphorus 2.9 mg/dL (2.3-4.7); Potassium 4.1 mmol/L (3.5-5.1); Sodium 137 mmol/L (136-145)
--- NOTE | 2019-09-23 07:42 | PDOC.EVN ---
Event Note - Event Note Event Note: discharge summary dictated. [id number]
[2019-09-23] MEDS: HYDROcodone/Acetaminophen 5/325 mg Tablet PO PRN (07:44)
[2019-09-23] MEDS ORDERED: Potassium Chloride 20 MEQ TAB PO SCH (08:00)
[2019-09-23] MEDS ORDERED: Enoxaparin Sodium 60 MG/0.6 ML SYRINGE SC SCH (09:00)
[2019-09-23] MEDS: ALPRAZolam 1 MG TAB PO PRN (09:04)
[2019-09-23] MEDS: Lidocaine 5% Patch TD SCH (10:25)
[2019-09-23] MEDS: Polyethylene Glycol 3350 17 GM Packet PO SCH (10:25)
[2019-09-23] MEDS: hydrOXYzine 25 MG TAB PO SCH (10:25)
[2019-09-23] MEDS: Magnesium Oxide 400 MG TAB PO SCH (10:25)
[2019-09-23] MEDS: Cholestyramine/Aspartame 4 gm Packet PO SCH (10:26)
[2019-09-23 11:23] VITALS: BP 135/65; TEMP 98.9
--- NOTE | 2019-09-24 07:36 | HP ---
PRIMARY CARE PHYSICIAN: None. CHIEF COMPLAINT: Back pain and altered mental status. HISTORY OF PRESENT ILLNESS: A 58-year-old female with known history of osteoporosis, degenerative joint disease with spinal stenosis associated with chronic back pain, to be on chronic narcotic therapy as well as COPD and tobacco abuse disorder, brought in my EMS due to worsening back pain and altered mental sensorium. The patient was just discharged from this hospital on September 16, 2019, after admission for back pain and hypokalemia. The patient then insisted on being discharged, leaving against medical advice. The patient was discharged on September 16. The patient presented to the emergency room 2 times already with current episode being this time. She reportedly called EMS that she needed help, and when EMS arrived, she was undecided as where to come as she accused the EMS people of trying to rub her. Brother reportedly noted that the patient is altered and was concerned that the patient may be using recreational drugs. Of note, the patient was fired by the primary care physician about 3 weeks ago after she became belligerent when pain medication could not be refilled for her. While in the ER, the patient reportedly had an episode of seizure activity lasting about 30 seconds to 1 minute and was aborted with Ativan. In the recent hospitalization, the patient was found to have severe hypokalemia associated with EKG changes of U waves and was treated with potassium supplementation and was discharged with prescription for potassium supplementation, but the patient . The patient is altered and was unable to provide any significant history. She complains of back pain, but denied chest pain, palpitations, cough, shortness of breath, or dizziness. The patient reported poor appetite and poor oral intake . In the ER, the patient also was treated with magnesium sulfate as magnesium was on the low side as well as IV potassium chloride. She remained hemodynamically stable, and she is admitted for further evaluation and treatment. PAST MEDICAL HISTORY: 1. Osteoporosis. 2. Osteoarthritis/degenerative joint disease of the spine. 3. Spinal stenosis. 4. Chronic back pain. 5. Anxiety. 6. Copd. 7. Tobacco abuse disorder. PAST SURGICAL HISTORY: None. FAMILY HISTORY: Significant for coronary artery disease in sister and brother. SOCIAL HISTORY: The patient lives alone. The patient denied alcohol use. The patient is a past smoker and claimed to have stopped smoking, but currently smokes again. She denied recreational drug use. ALLERGIES: AZITHROMYCIN . HOME MEDICATIONS: 1. Xanax 2 mg p.o. daily at bedtime. 2. Omeprazole 40 mg p.o. daily. 3. OxyContin 30 mg t.i.d. 4. Magnesium oxide 400 mg p.o. daily. 5. Potassium chloride 10 mEq p.o. b.i.d. 6. MiraLAX 17 g p.o. b.i.d. REVIEW OF SYSTEMS: Twelve-point review of systems performed was negative other than pertinent positives and negatives included in the history of present illness. PHYSICAL EXAMINATION: VITAL SIGNS: Initial vitals on presentation to the ER showed BP 167/78, pulse 76, respiratory rate 16, temperature 99.2, SpO2 of 100% on room air. GENERAL: Thin female, in no obvious distress. Afebrile. Anicteric. Acyanotic. HEENT: Normocephalic and atraumatic. Oral mucosa is moist. NECK: Supple and nontender with good range of motion. No obvious masses or lymphadenopathy appreciated. CARDIOVASCULAR: Regular rhythm and rate with normal heart sounds 1 and 2. RESPIRATORY: Fair air entry bilaterally with no obvious crackle or rhonchi or use of accessory muscles. GI: Full, soft, nontender, and nondistended with normal bowel sounds. EXTREMITIES: Thin extremities, but otherwise grossly normal looking and atraumatic with no edema or erythema. WINDOWS SERVER ADMINISTRATOR: Conscious, alert, and oriented x3. The patient is evasive, but otherwise seems appropriate. Cranial nerves 2 through 12 are grossly intact. The patient moves all extremities. DIAGNOSTIC DATA: CBC showed WBC count of 8.0, hemoglobin of 14.5, MCV of 96.7, platelets of 400. CMP shows sodium 134, potassium 2.7, chloride 98, CO2 of 23, BUN less than 4, creatinine 0.6, glucose 110, calcium 9.0, total bilirubin 0.6, AST 21, ALT 13, alkaline phosphatase 94, total protein 7.2, albumin 4.0, globulin 3.2. Initial troponin on presentation was less than 0.10, and subsequent one 3 hours later was also less than 0.10, but troponin after the seizure-like activity was 0.030. CK is 51. CK-MB is 1.0. Magnesium is 1.7. Urinalysis showed light yellow urine with pH of 7.5, specific gravity of 1.010, positive ketones, but negative protein, blood, nitrite, bilirubin, and leukocyte esterase. Urine drug screen was unremarkable except detected benzodiazepine. Salicylate was less than 8.0. Acetaminophen less than 6.0. Plasma alcohol was less than 10. EKG showed normal sinus rhythm with rate of 77. QT is mildly prolonged. CT scan of the brain performed on September 19, showed no acute intracranial abnormality. However, there is decreased attenuation seen in the periventricular white matter, which is nonspecific, but is likely attributable to chronic small-vessel ischemic changes. There is mild cerebral volume loss. ASSESSMENT: 1. Severe persistent hypokalemia. 2. Seizure episode: Most likely due to hypokalemia. 3. [id number] protein-calorie malnutrition with ketosis. 4. Chronic intermittent constipation: Most likely related to narcotic use. 5. Chronic back pain. 6. Chronic tobacco abuse disorder. 7. Chronic obstructive pulmonary disease without acute exacerbation. 8. Gastroesophageal reflux disease. 9. Anxiety disorder. 10. Acute metabolic encephalopathy: Most likely due to withdrawal from benzodiazepine and narcotics. 11. Hypomagnesemia. PLAN: 1. We will admit the patient to stroke unit. 2. We will start seizure prophylaxis. 3. We will start potassium supplementation with oral potassium chloride. 4. We will monitor electrolytes and replete as needed. 5. We will also start oral supplementation with Ensure Enlive t.i.d. 6. Diet as tolerated will be commenced. 7. We will follow troponin as well as CK given seizure episode. 8. We will consult Case Management to help with evaluation of whole situation and discharge planning. 9. We will also get mental health evaluation. 10. Analgesic as needed will be provided, as well as antiemetics. 11. DVT prophylaxis with Lovenox will be commenced as well. CODE STATUS: Full code. Brother is the surrogate decision maker. Job ID: [id number]
--- NOTE | 2019-09-24 07:43 | DIS ---
DATE OF ADMISSION: 09/22/2019 DATE OF DISCHARGE: 09/23/2019 PRIMARY CARE PHYSICIAN: Archana Joel MD DISCHARGE DIAGNOSES: 1. Severe recurrent/persistent hypokalemia. 2. Seizure episode. 3. Hypomagnesemia. 4. Elevated troponin. 5. Acute exacerbation of chronic back pain. 6. Anxiety. 7. Chronic obstructive pulmonary disease without acute exacerbation. 8. Tobacco abuse disorder. 9. Chronic intermittent diarrhea. 10. Moderate protein-calorie malnutrition. 11. Diastolic dysfunction. CONSULT: Neurology. HOSPITAL COURSE: A 58-year-old female with known history of COPD, tobacco abuse, and chronic back pain, admitted with worsening back pain and found to have severe hypokalemia. The patient also had an episode of seizure activity in the ER. She was admitted subsequently for further evaluation and treatment. Potassium supplementation was provided with correction of serum potassium. The patient also had elevated troponin, necessitating further evaluation with echocardiogram which showed normal systolic function, but found to have diastolic dysfunction. Neurology consult was requested for the seizure episode in the ER, but the patient refused to talk with neurologist. However, she had no further seizure during this hospitalization. Of note, the patient was recently admitted to this hospital for similar symptoms and was discharged. On post discharge, she refused to pick the prescriptions and subsequently returned to the ER 2 times prior to the episode that led to this admission. Brother also said that the patient was altered at home, hence mental health evaluation was obtained and patient was deemed to be appropriate and not suicidal. However, she agreed to counseling and resources were provided to her. The patient also was found to have moderate protein-calorie malnutrition, hence was started on oral dietary supplementation with Ensure Enlive. At discharge, the patient was advised to get Ensure and eat more. The patient also had an episode of diarrhea during this hospitalization and given prior history of chronic intermittent diarrhea, stool culture was obtained, but it was unremarkable except positive lactoferrin. She reportedly had an EGD/colonoscopy 2 years ago. She was therefore advised to follow up with her regular media manager. PHYSICAL EXAMINATION: VITAL SIGNS: Temperature 98.3, pulse 50, respiratory rate 16, SpO2 of 96% on room air, blood pressure 151/69. GENERAL: Thin female, in no obvious distress. Afebrile. Anicteric. Acyanotic. HEENT: Normocephalic, atraumatic. Oral mucosa is moist. CARDIOVASCULAR: Regular rhythm and rate. Normal heart sounds 1 and 2. RESPIRATORY: Good air entry bilaterally with no obvious crackle or rhonchi or use of accessory muscles. GI: Full, soft, nontender, nondistended with normal bowel sounds. EXTREMITIES: Pain but otherwise normal with no edema or erythema. SERVICE LINE BUS CLEANER: Conscious, alert, oriented x3 with appropriate mental status. DISCHARGE CONDITION: Improved. DISCHARGE DISPOSITION: Home. DISCHARGE MEDICATIONS: 1. Acetaminophen with codeine (Tylenol 3) one tablet p.o. q.6 p.r.n. 2. Xanax 2 mg p.o. t.i.d. p.r.n. 3. Potassium chloride 20 mEq p.o. b.i.d. 4. Diphenoxylate atropine 2.5/0.025 mg tablets, two tablets q.3 hours p.r.n. for diarrhea. 5. MiraLAX 17 g p.o. b.i.d. p.r.n. for constipation. 6. Magnesium oxide mg p.o. daily. 7. Tylenol 650 mg q.4 p.r.n. for pain. 8. The patient also has history of OxyContin use. This is in her home medication. However, no prescription was provided for this. This discharge took more than 33 minutes. Job ID: [id number]
--- NOTE | 2019-09-26 06:02 | PQF ---
NEO HUNTER OBI, CHIZOBA C [id number] [facility] [id number] CLINICAL DOCUMENTATION CLARIFICATION FORM: POST DISCHARGE Addendum to original discharge summary date: ____ Late entry note date: __ DATE: 09/26/19 ATTN: Esha Garcia Obi Please exercise your independent, professional judgment in responding to the clarification form. Clinical indicators are provided on the bottom of this form for your review Please check appropriate box(s) to clarify if the following diagnosis has been ruled in or ruled out: Acute Metabolic Encephalopathy [ ] Ruled in diagnosis [ ] Continue to treat [ ] Resolved [ ] Ruled out diagnosis [ ] Cannot rule out diagnosis [ ] Other diagnosis [ ] Unable to determine In addition, please specify: Present on Admission (POA): [ ] Yes [ ] No [ ] Unable to determine For continuity of documentation, please document condition throughout progress notes and discharge summary. Thank You. CLINICAL INDICATORS - SIGNS / SYMPTOMS / LABS H&P p1 09/20 Dr Baxter brought in by EMS due to worsening back pain and altered mental sensorium H&P p1 09/20 Dr Baxter the patient reported poor appetite and poor oral intake H&P p1 09/20 Dr Baxter In the ER, the patient also treated with magnesium sulfate as magnesium was on the los side as well as IV Potassium Chloride H&P p4 09/20 Dr Baxter Acute Metabolic Encephalopathy : most likely due to withdrawal from benzodiazepine and narcotics RISK FACTORS H&P p3 10 Severe Persistent Hypokalemia H&P p3 10 Moderate to severe protein calorie malnutrition with Ketosis H&P p4 10 Hypomagnesemia TREATMENTS MAR 10 Potassium Chloride IV MAR 09/20 Magnesssium Sulfate H&P p4 09/20 Start potassium supplementation with oral potassium chloride (This form is maintained as a part of the permanent medical record) 2014 [employer]. All Rights Reserved [email or web address] [not provided] MTDD
--- NOTE | 2019-09-26 06:05 | PQF ---
NEO HUNTER OBI, CHIZOBA Naren [id number] [facility] [id number] CLINICAL DOCUMENTATION CLARIFICATION FORM: POST DISCHARGE Addendum to original discharge summary date: ____ Late entry note date: __ DATE: 09/26/19 ATTN: Esha Medeiros Obi Please exercise your independent, professional judgment in responding to the clarification form. Clinical indicators are provided on the bottom of this form for your review Please check appropriate box(s): Conflicting documentation was noted in the Medical Record, please clarify if patient is being treated/monitored for: [ ] Severe protein calorie malnutrition [ ] Moderate protein calorie malnutrition [ ] Other diagnosis [ ] Unable to determine In addition, please specify: Present on Admission (POA): [ ] Yes [ ] No [ ] Unable to determine For continuity of documentation, please document condition throughout progress notes and discharge summary. Thank You. CLINICAL INDICATORS - SIGNS / SYMPTOMS/ LABS H&P p1 09/20 Dr Baxter the patient reported poor appetite and poor oral intake H&P p1 09/20 Dr Baxter In the ER, the patient also treated with magnesium sulfate as magnesium was on the los side as well as IV Potassium Chloride H&P p3 09/20 Dr Baxter Moderate to severe protein calorie malnutrition with Ketosis H&P p4 09/20 Dr Baxter Acute Metabolic Encephalopathy : most likely due to withdrawal from benzodiazepine and narcotics RISK FACTORS H&P p3 10 Severe Persistent Hypokalemia H&P p3 1024 Anxiety Disorder H&P p4 10 Hypomagnesemia Info BMI 18.2 TREATMENT H&P p4 09/20 - Start on Oral supplementation with Ensure Enlive TID H&P p4 09/20 Start potassium supplementation with oral potassium chloride (This form is maintained as a part of the permanent medical record) 2014 [employer]. All Rights Reserved [email or web address] [not provided] MTDD
== END 2019-09-23 14:22 | disposition home or self-care (01) | DRG 641 ==
LOC: ERS 10:49 → ERHOLD 16:04 → 2SE 18:52 → OBSVTOIN 09-22 09:58
PROVIDERS: ADMIT Internal Medicine Nephrology; ATTEND Internal Medicine Nephrology
DX: E87.6 Hypokalemia (principal); E44.0 Moderate protein-calorie malnutrition; Z68.1 Body mass index [BMI] 19.9 or less, adult; Z79.899 Other long term (current) drug therapy; K59.09 Other constipation; G89.29 Other chronic pain; M54.9 Dorsalgia, unspecified; J44.9 Chronic obstructive pulmonary disease, unspecified; K21.9 Gastro-esophageal reflux disease without esophagitis; F41.9 Anxiety disorder, unspecified; M06.9 Rheumatoid arthritis, unspecified; E83.42 Hypomagnesemia; K52.9 Noninfective gastroenteritis and colitis, unspecified; I51.89 Other ill-defined heart diseases; R56.9 Unspecified convulsions; R79.89 Other specified abnormal findings of blood chemistry; Z88.1 Allergy status to other antibiotic agents
CPT/HCPCS: 36415; 36416; 51701; 70450; 80053; 80069; 80306; 80307; 81003; 82140; 82550; 82553; 83630; 83690; 83735; 84146; 84443; 84484; 85025; 85652; 86140; 87045; 87046; 87081; 87427; 87449; 93005; 93306; 94760; 96365; 96366; 96368; 96375; A4353; J1650; J2060; J2310; J2405; J3475; J3480

== ENCOUNTER 2019-09-25 12:03 | Inpatient (IN) | payer MEDICARE ==
[2019-09-25 13:22] LABS: #Lymphocytes 1.7 thou/uL (1.20-3.40); #Monocytes 0.9 thou/uL (0.11-0.59); #Neutrophils 10.6 thou/uL (1.40-6.50); %Basophils 0.2 % (0.0-1.0); %Eosinophils 0.3 % (0.0-10.0); %Lymphocytes 12.9 % (21.0-51.0); %Neutrophils 79.7 % (42.0-75.0); Hemoglobin 15.6 g/dL (12.0-16.0); Mean Corpuscular HGB CONC 32.5 g/dL (32.0-36.0); Mean Corpuscular Hemoglobin 31.5 pg (27.0-31.0); Mean Corpuscular Volume 96.9 fL (78.0-98.0); Mean Platelet Volume 8.3 fL (7.4-10.4); Platelet Count 363 thou/uL (130-400); RBC Distribution Width 13.6 % (11.5-14.5); Red Blood Cell (RBC) Count 4.95 mill/uL (4.20-5.40); White Blood Cell (WBC) Count 13.4 thou/uL (4.8-10.8)
[2019-09-25 13:48] LABS: ALT (SGPT) 17 U/L (8-55); AST (SGOT) 20 U/L (5-34); Acetaminophen Less than 6.0 mcg/mL (10.0-30.0); Albumin 4.3 g/dL (3.5-5.0); Alcohol Less than 10 mg/dL (Less than 10); Alkaline Phosphatase 81 U/L (40-110); Anion Gap 24 mmol/L (10-20); BUN (Urea Nitrogen) 8 mg/dL (9.8-20.1); Bilirubin, Total 0.8 mg/dL (0.2-1.2); CK (CPK) 17 U/L (29-168); Calc. Creatinine Clearance 0 mL/min (70-130); Calcium 9.3 mg/dL (7.8-10.44); Carbon Dioxide 15 mmol/L (22-29); Chloride 105 mmol/L (98-107); Estimated GFR-MDRD 88; Globulin 3.2 g/dL (2.4-3.5); Glucose 84 mg/dL (70-105); Potassium 3.9 mmol/L (3.5-5.1); Protein, Total 7.5 g/dL (6.0-8.3); Salicylate Less than 8.0 mg/dL (15.0-30.0); Sodium 140 mmol/L (136-145)
--- NOTE | 2019-09-25 13:48 | CT ---
CT Brain WO Con: 09/25/2019 12:51 PM CLINICAL HISTORY: AMS. COMPARISON: 09/19/2019 FINDINGS: Hemorrhage: None. Ventricular system: Stable mild enlargement. Cerebral parenchyma: Bilateral white matter hypoattenuation is similar in appearance. Midline shift: None. Mass: No mass effect. Calvarium: Normal. Visualized Paranasal sinuses: Clear. IMPRESSION: No acute intracranial abnormalities.
[2019-09-25 14:30] LABS: Bilirubin Small (Negative); Blood, Urine Moderate (Negative); Glucose, Urine (Dipstick) Negative (Negative); Leukocyte Negative (Negative); Nitrite Negative (Negative); Protein, Urine (Dipstick) 30 mg/dL (Neg-Trace); Urobilinogen 0.2 mg/dL (Less than 2)
[2019-09-25 14:34] LABS: Clarity Hazy (Clear); Pregnancy Test - Urine (BHCG) Negative (Negative); Pregu Control Background? CLEAR/WHITE (CLR/WHITE); Pregu Control Bar Appear? YES (CONTROL BAR); Specific Gravity 1.025 (1.002-1.036)
[2019-09-25 14:39] LABS: Amphetamine Not Detected (NotDetected); Barbiturates Screen Not Detected (NotDetected); Benzodiazepine Screen Detected (NotDetected); Cocaine Metabolite Screen Not Detected (NotDetected); Medtox Control Line Valid? VALID (VALID); Medtox Reader # READER 4; Methadone Not Detected (NotDetected); Methamphetamine Not Detected (NotDetected); Opiate Screen Not Detected (NotDetected); Oxycodone Screen Not Detected (NotDetected); Phencyclidine (PCP) Not Detected (NotDetected); THC/Cannabinoid Screen Not Detected (NotDetected); Tricyclic Screen Not Detected (NotDetected)
[2019-09-25 14:43] LABS: Bacteria/HPF 3+ HPF (None Seen); RBC/HPF 0-3 HPF (0-3); Squamous Epithelial 0-3 HPF (0-3)
--- NOTE | 2019-09-25 15:00 | RAD ---
Exam: Chest one view HISTORY:AMS Comparison: 09/15/2019 FINDINGS: Lungs: No masses or consolidation. Cardiac silhouette: Normal size Pulmonary vessels: Normal Pleural Spaces: Clear Pneumothorax: None Osseous abnormalities: None of acuity. IMPRESSION: Stable chest
[2019-09-25 17:33] LABS: Phosphorus 3.1 mg/dL (2.3-4.7)
[2019-09-25 17:33] LABS: Analyzer IN Cardio ER; Base Excess (BEa) -12.8 mEq/L (-2.0 to +3.0); Calcium, Ionized 1.13 mmol/L (1.12-1.30); Carboxyhemoglobin (COHb) 0.6 gm% (0.0-3.0); Hemoglobin (Hb) 14.2 g/dL (12.0-16.0); O2 Tension (PaO2) 100.8 mmHg (> 80.0); Potassium - ABG Lab 3.27 mmol/L (3.70-5.30); pH, Arterial 7.36 (7.35-7.45)
[2019-09-25 17:36] LABS: Puncture Site LRA
[2019-09-25 17:47] LABS: Anion Gap 25 mmol/L (10-20); BUN (Urea Nitrogen) 8 mg/dL (9.8-20.1); Calc. Creatinine Clearance 0 mL/min (70-130); Calcium 8.7 mg/dL (7.8-10.44); Carbon Dioxide 9 mmol/L (22-29); Chloride 110 mmol/L (98-107); Estimated GFR-MDRD Greater than 90; Glucose 63 mg/dL (70-105); Magnesium 1.9 mg/dL (1.6-2.6); Potassium 4.7 mmol/L (3.5-5.1); Sodium 139 mmol/L (136-145)
[2019-09-25] MEDS ORDERED: Sodium Bicarb 50 MEQ/50 ML VIAL ONE (18:15)
[2019-09-25] MEDS: Sodium Bicarbonate 150 MEQ in Dextrose 5% in Water 1,000 ML IV SCH (21:50)
[2019-09-25 22:41] LABS: Anion Gap 21 mmol/L (10-20); BUN (Urea Nitrogen) 6 mg/dL (9.8-20.1); Calc. Creatinine Clearance 0 mL/min (70-130); Calcium 8.4 mg/dL (7.8-10.44); Carbon Dioxide 15 mmol/L (22-29); Chloride 108 mmol/L (98-107); Estimated GFR-MDRD Greater than 90; Glucose 95 mg/dL (70-105); Sodium 141 mmol/L (136-145)
[2019-09-25] MEDS: Folic Acid 1 MG TAB PO SCH (22:56)
[2019-09-26] MEDS: Sodium Bicarbonate 150 MEQ in Dextrose 5% in Water 1,000 ML IV SCH ×3 (04:41→17:28)
[2019-09-26] MEDS: Folic Acid 1 MG TAB PO SCH ×2 (08:17→20:37)
[2019-09-26] MEDS: Multivit, Therapeutic 1 TAB PO SCH (08:18)
[2019-09-26] MEDS ORDERED: FLU VACC QS2019-20(6MOS UP)/PF 60 MCG/0.5 ML SYRINGE IM ONE (09:00)
[2019-09-26] MEDS ORDERED: Senokot S 8.6-50 MG TAB PO PRN (09:43)
[2019-09-26] MEDS ORDERED: Acetaminophen 650 MG Suppository PR PRN (09:43)
[2019-09-26] MEDS ORDERED: Sodium Chloride 0.9% 1,000 ML IV SCH (09:45)
[2019-09-26] MEDS ORDERED: PROVENTIL INHALER 6.7 G (200 INHALATIONS) INH PRN (09:52)
[2019-09-26] MEDS ORDERED: Diphenoxylate HCl/Atropine Tablet PO PRN (09:53)
[2019-09-26] MEDS ORDERED: NS 0.9% w/ 20 MEQ KCL 1,000 ML/1,000 ML BAG IV SCH (10:00)
[2019-09-26] MEDS ORDERED: Lorazepam 2 MG/ML VIAL SLOW IVP PRN (10:12)
[2019-09-26] MEDS: D5 1/2 NS w/20 mEq KCL 1,000 ML IV SCH (11:27)
--- NOTE | 2019-09-26 11:50 | HP ---
PRESENTING COMPLAINT: Altered mental status. HISTORY OF PRESENT ILLNESS: The patient with past medical history of chronic obstructive airway disease, tobacco abuse, drug abuse, anxiety disorder, and chronic back pain, was brought by brother to the hospital due to worsening mental status. As per brother, the patient lives alone and he is her POA, and the patient previously used to have episodes of confusion, where she was not paying attention, was hallucinating and she from last 1 week came to the hospital 2 times and was discharged home and she intermittently gets more confused, incoherent, and speaks incoherently, but the patient was recently discharged from the hospital and since she left 1 day she was fine and then she was totally confused and not able to communicate, was talking to someone and having paranoid ideas, repeating the same words, not able to communicate, not able to mobilize, and due to worsening mental status the patient was brought to the hospital. PHYSICAL EXAMINATION: GENERAL: The patient seen at bedside, speaks incoherent, not following command properly, repeating the same words again and again. However, currently, the patient not agitated, not in distress, lying comfortably. VITAL SIGNS: Blood pressure 131/60, temperature 98.9, pulse 63, respirations 18, and oxygen saturation 97%. HEENT: Conjunctivae are normal. Oral mucosa dry. NECK: Supple. No JVD. No lymphadenopathy. CHEST: Normal vesicular breathing. No rhonchi. No wheezing. HEART: Sound normal. No murmur, gallop, or rub. ABDOMEN: Soft and benign. No tender or visceromegaly. EXTREMITIES: Negative edema in feet. Tattoo randall on extremities. Moves spontaneously all her limbs. Cranial nerves grossly intact. LABORATORY DATA: BMP unremarkable except potassium 3.0, bicarb 15, creatinine 0.59, folate 4.90, lactic acid on admission 2.0, phosphorous 3.1. ABG is 7.36, 18, and 100.8. BMP unremarkable on admission except bicarb on admission 15, repeat bicarb 15; creatinine 0.69; BUN 8; and blood glucose 115. LFTs normal. B12 of 439, TSH 0.96. Urine blood moderate, bilirubin small. Toxicology negative for barbiturates, tricyclics, phencyclidine, amphetamine, benzodiazepine detected. Beta hydroxybutyrate 7.04. CT brain, no acute intracranial abnormalities. Chest x-ray, stable chest. IMPRESSION AND PLAN: 1. Acute on chronic encephalopathy, unclear cause, possible underlying psychiatric disorder. The patient has repeated episodes of admissions with speaking incoherent, repeating the same words, also going in and out from discussion as per brother. As per brother, the patient's symptoms are ongoing from years, but got worse from last week. The patient visited emergency room 2 times during this time, currently not able to communicate. Speaks incoherent and repeating the same words. Urine toxicology negative except for benzodiazepines. The patient's CT brain negative. ABGs does not show any hypercapnia. We will get Neurology evaluation if any further workup needed. We will also get mental health evaluation in case the patient needs to be transferred to [facility]. Chest x-ray negative for acute findings. 2. Low bicarb level, unclear cause. We will hold the patient's home medication. We will continue dextrose fluid. We will continue to monitor BMP. The patient has pH of 7.36. If persistent low bicarb, we will get Nephrology evaluation. 3. Hypokalemia. We will continue potassium replacement. 4. History of chronic obstructive pulmonary disease, currently looks compensated. We will continue DuoNeb as needed. 5. History of chronic back pain. Currently, the patient not having any pain. We will use Tylenol as needed for pain. 6. History of tobacco abuse and drug abuse in the past. Continue supportive care. 7. Deep venous thrombosis, gastrointestinal prophylaxis. Plan discussed with nursing staffs; brother, who is POA, present at bedside, Justin Holloway. Plan discussed with in-charge nurse. Job ID: [id number]
[2019-09-26] MEDS: Lorazepam 2 MG/ML VIAL SLOW IVP PRN ×2 (12:53→21:08)
[2019-09-26 15:09] LABS: Anion Gap 15 mmol/L (10-20); BUN (Urea Nitrogen) Less than 4 mg/dL (9.8-20.1); Calc. Creatinine Clearance 75 mL/min (70-130); Calcium 8.2 mg/dL (7.8-10.44); Carbon Dioxide 27 mmol/L (22-29); Chloride 92 mmol/L (98-107); Estimated GFR-MDRD Greater than 90; Glucose 130 mg/dL (70-105); Magnesium 1.5 mg/dL (1.6-2.6); Sodium 132 mmol/L (136-145)
[2019-09-26 15:14] LABS: Phosphorus 1.9 mg/dL (2.3-4.7); Potassium 2.2 mmol/L (3.5-5.1)
--- NOTE | 2019-09-26 15:19 | MRI ---
MRI OF BRAIN WITHOUT CONTRAST: 09/26/19 HISTORY: Altered mental status. COMPARISON: None. CORRELATION: CT scan from previous day. FINDINGS: No restricted diffusion is seen. Changes of cortical atrophy and chronic small vessel ischemic diseas e. No evidence of infarct, hemorrhage, midline shift, or abnormal extra-axial fluid collections are s een. The ventricular size is appropriate and the basilar cisterns patent. The paranasal sinuses and m astoid air cells are well aerated. IMPRESSION: No evidence of acute intracranial process. POS: TPC
[2019-09-26] MEDS ORDERED: Potassium Phosphate 30 MMOL in Sodium Chloride 0.9% 500 ML IVPB SCH (16:15)
[2019-09-26] MEDS ORDERED: Magnesium 2 GM/50 ML 2 GM in Premix Bag 1 BAG IVPB SCH (16:15)
[2019-09-26] MEDS: Potassium Chloride 20 MEQ TAB PO SCH ×2 (17:24→17:37)
[2019-09-26] MEDS: Potassium Chloride 10 MEQ in Premix Bag 1 BAG IVPB SCH ×3 (17:34→19:13)
[2019-09-26 22:46] LABS: Anion Gap 14 mmol/L (10-20); BUN (Urea Nitrogen) Less than 4 mg/dL (9.8-20.1); Calc. Creatinine Clearance 80 mL/min (70-130); Calcium 8.4 mg/dL (7.8-10.44); Carbon Dioxide 28 mmol/L (22-29); Chloride 92 mmol/L (98-107); Estimated GFR-MDRD Greater than 90; Glucose 110 mg/dL (70-105); Magnesium 1.9 mg/dL (1.6-2.6); Sodium 132 mmol/L (136-145)
[2019-09-26 22:48] LABS: Potassium 2.4 mmol/L (3.5-5.1)
[2019-09-27] MEDS: ALPRAZolam 0.5 MG TAB PO PRN ×3 (02:02→16:18)
[2019-09-27] MEDS: Ondansetron PF 4 MG/2 ML Vial IVP PRN ×2 (02:02→07:42)
[2019-09-27] MEDS: D5 1/2 NS w/20 mEq KCL 1,000 ML IV SCH ×3 (03:45→23:06)
[2019-09-27 05:17] LABS: Anion Gap 13 mmol/L (10-20); BUN (Urea Nitrogen) Less than 4 mg/dL (9.8-20.1); Calc. Creatinine Clearance 82 mL/min (70-130); Calcium 8.2 mg/dL (7.8-10.44); Carbon Dioxide 27 mmol/L (22-29); Chloride 97 mmol/L (98-107); Estimated GFR-MDRD Greater than 90; Glucose 131 mg/dL (70-105); Sodium 134 mmol/L (136-145)
[2019-09-27 05:22] LABS: #Basophils 0.1 thou/uL (0.0-0.2); #Eosinphils 0.1 thou/uL (0.0-0.7); #Lymphocytes 2.2 thou/uL (1.20-3.40); #Monocytes 1.1 thou/uL (0.11-0.59); #Neutrophils 9.2 thou/uL (1.40-6.50); %Basophils 0.5 % (0.0-1.0); %Eosinophils 0.6 % (0.0-10.0); %Lymphocytes 17.4 % (21.0-51.0); %Monocytes 8.5 % (0.0-10.0); %Neutrophils 73.1 % (42.0-75.0); Hemoglobin 12.8 g/dL (12.0-16.0); Mean Corpuscular HGB CONC 33.9 g/dL (32.0-36.0); Mean Corpuscular Hemoglobin 32.1 pg (27.0-31.0); Mean Corpuscular Volume 94.7 fL (78.0-98.0); Platelet Count 286 thou/uL (130-400); RBC Distribution Width 13.1 % (11.5-14.5); White Blood Cell (WBC) Count 12.6 thou/uL (4.8-10.8)
[2019-09-27 05:23] LABS: Potassium 2.6 mmol/L (3.5-5.1)
[2019-09-27 05:51] VITALS: BMI 17.6
[2019-09-27] MEDS: Enoxaparin Sodium 40 MG/0.4 ML SYRINGE SC SCH (07:41)
[2019-09-27] MEDS: Potassium Chloride 20 MEQ TAB PO SCH (07:41)
[2019-09-27] MEDS: Folic Acid 1 MG TAB PO SCH ×2 (07:42→19:50)
[2019-09-27] MEDS: Magnesium Oxide 400 MG TAB PO SCH (07:42)
[2019-09-27] MEDS: Multivit, Therapeutic 1 TAB PO SCH (07:42)
[2019-09-27 08:00] LABS: #Eosinphils 0.1 thou/uL (0.0-0.7); #Lymphocytes 2.2 thou/uL (1.20-3.40); #Monocytes 1.2 thou/uL (0.11-0.59); #Neutrophils 9.4 thou/uL (1.40-6.50); %Basophils 0.3 % (0.0-1.0); %Eosinophils 0.6 % (0.0-10.0); %Lymphocytes 16.7 % (21.0-51.0); %Monocytes 9.1 % (0.0-10.0); %Neutrophils 73.3 % (42.0-75.0); Hemoglobin 13.5 g/dL (12.0-16.0); Mean Corpuscular HGB CONC 33.2 g/dL (32.0-36.0); Mean Corpuscular Hemoglobin 32.3 pg (27.0-31.0); Mean Corpuscular Volume 97.3 fL (78.0-98.0); Mean Platelet Volume 8.5 fL (7.4-10.4); Platelet Count 292 thou/uL (130-400); RBC Distribution Width 13.3 % (11.5-14.5); Red Blood Cell (RBC) Count 4.19 mill/uL (4.20-5.40); White Blood Cell (WBC) Count 12.8 thou/uL (4.8-10.8)
[2019-09-27 08:28] LABS: Anion Gap 13 mmol/L (10-20); BUN (Urea Nitrogen) Less than 4 mg/dL (9.8-20.1); Calc. Creatinine Clearance 74 mL/min (70-130); Calcium 8.3 mg/dL (7.8-10.44); Carbon Dioxide 29 mmol/L (22-29); Chloride 98 mmol/L (98-107); Estimated GFR-MDRD Greater than 90; Glucose 123 mg/dL (70-105); Magnesium 1.8 mg/dL (1.6-2.6); Sodium 137 mmol/L (136-145)
[2019-09-27 08:34] LABS: Potassium 2.7 mmol/L (3.5-5.1)
[2019-09-27 09:24] LABS: Phosphorus 3.3 mg/dL (2.3-4.7)
--- NOTE | 2019-09-27 09:28 | PDOC.HOSPP ---
- Subjective Encounter Date: 09/27/19 Subjective: Pt seen Awake AAO3 , Follows command and moves all limbs , Denies complaints occasionally gets upset with conversations Denies hallucinations , not suicidal - Objective Vital Signs & Weight: Vital Signs (12 hours) Temp Pulse Resp BP BP Pulse Ox 09/27/19 07:38 98.2 F 66 16 103/56 L 94 L 09/27/19 07:28 98 09/27/19 04:00 97.2 F L 72 17 105/60 98 09/26/19 23:38 97.9 F 68 18 109/61 98 Weight Admit Weight 100 lb 0.027 oz Weight 93 lb 8 oz I&O: 09/26/19 09/27/19 09/28/19 06:59 06:59 06:59 Intake Total 1350 2140 Output Total 450 1000 Balance 900 1140 Result Diagrams: 09/27/19 07:54 09/27/19 07:54 Additional Labs: Accuchecks 09/27/19 09/27/19 09/26/19 08:59 04:42 23:37 POC Glucose 137 H 130 H 119 H 09/26/19 09/26/19 09/26/19 20:25 16:48 12:26 POC Glucose 112 H 153 H 134 H Hospitalist ROS - Review of Systems Constitutional: denies: fever Eyes: denies: pain ENT: denies: ear pain Respiratory: denies: cough Cardiovascular: denies: chest pain Gastrointestinal: reports: nausea Musculoskeletal: denies: neck pain Neurological: denies: weakness - Medication Medications: Active Medications Generic Name Dose Route Start Last Admin Trade Name Freq PRN Reason Stop Dose Admin Alprazolam 0.5 mg 09/26/19 09:52 09/27/19 07:42 Xanax PO 0.5 mg TIDPRN PRN Administration Anxiety Enoxaparin Sodium 40 mg 09/27/19 09:00 09/27/19 07:41 Lovenox SC 40 mg 0900 SUMA Administration Folic Acid 1 mg 09/25/19 21:00 09/27/19 07:42 Folvite PO 1 mg BID SUMA Administration Potassium Chloride/Dextrose/Sod Cl 1,000 mls @ 100 mls/hr 09/26/19 10:15 06:07 D5 1/2 Ns W/20 Meq Kcl IV Not Given .Q10H SUMA Lorazepam 0.5 mg 09/26/19 09:54 09/26/19 21:08 Ativan SLOW IVP 0.5 mg Q6H PRN Administration Anxiety/Agitation Magnesium Oxide 400 mg 09/27/19 09:00 09/27/19 07:42 Magnesium Oxide PO 400 mg DAILY SUMA Administration Multivitamins 1 tab 09/26/19 09:00 09/27/19 07:42 Theragran PO 1 tab DAILY SUMA Administration Ondansetron HCl 4 mg 09/26/19 09:43 09/27/19 07:42 Zofran IVP 4 mg Q6H PRN Administration Nausea/Vomiting Pantoprazole Sodium 40 mg 09/27/19 09:00 09/27/19 07:42 Protonix PO 40 mg DAILY SUMA Administration Potassium Chloride 20 meq 09/26/19 17:00 09/27/19 07:41 K-Dur PO Not Given BID-WM SUMA - Exam General Appearance: awake alert ENT: normocephalic atraumatic Neck: supple Heart: no murmur Respiratory: no wheezes Gastrointestinal: soft Extremities: no cyanosis Neurological: cranial nerve grossly intact Musculoskeletal: normal tone Psychiatric: normal affect Hosp A/P - Plan Acute on Chronic encephaloapthy possible multifactorial possible due to benzodiazipines and underlaying psychiatric disorder , Pt ocasionally speaks incoherent and and symptoms are getting worse lateley had frequent visits to hospital last few wks Admission in psychiatry facility may help , MRI brain neg , no focal deficit Acute on chronic hypokalemia with low bicarbonate possible starvation related , discussed with nephrology Dr Ayon who managed this pt last admission COPD looks compensated will use prn nebs H/O [place] abuse and drug abuse in the past , continue supportive care DVT/GI prophyalxis DNR/DNI Plan Discussed with brother at bed site , Pt pending psychiatry evaluation once K corrected and medically stable
[2019-09-27] MEDS ORDERED: Potassium Chloride 40 MEQ in Sodium Chloride 0.9% 250 ML 250 ML IVPB SCH (10:30)
[2019-09-27] MEDS ORDERED: traMADol HCl 50 MG TAB PO PRN (11:09)
[2019-09-27] MEDS: Lorazepam 2 MG/ML VIAL SLOW IVP PRN ×2 (11:36→21:08)
[2019-09-27 18:26] LABS: Anion Gap 13 mmol/L (10-20); BUN (Urea Nitrogen) 4 mg/dL (9.8-20.1); Calc. Creatinine Clearance 72 mL/min (70-130); Calcium 8.7 mg/dL (7.8-10.44); Carbon Dioxide 27 mmol/L (22-29); Chloride 103 mmol/L (98-107); Estimated GFR-MDRD Greater than 90; Glucose 97 mg/dL (70-105); Potassium 3.5 mmol/L (3.5-5.1); Sodium 139 mmol/L (136-145)
[2019-09-28] MEDS: ALPRAZolam 0.5 MG TAB PO PRN ×3 (01:17→22:21)
[2019-09-28 05:23] LABS: Anion Gap 9 mmol/L (10-20); BUN (Urea Nitrogen) Less than 4 mg/dL (9.8-20.1); Calc. Creatinine Clearance 82 mL/min (70-130); Calcium 8.3 mg/dL (7.8-10.44); Carbon Dioxide 27 mmol/L (22-29); Chloride 104 mmol/L (98-107); Estimated GFR-MDRD Greater than 90; Glucose 113 mg/dL (70-105); Sodium 137 mmol/L (136-145)
[2019-09-28 09:10] LABS: #Eosinphils 0.1 thou/uL (0.0-0.7); #Neutrophils 6.9 thou/uL (1.40-6.50); %Basophils 0.4 % (0.0-1.0); %Eosinophils 1.2 % (0.0-10.0); %Lymphocytes 20.3 % (21.0-51.0); %Monocytes 9.8 % (0.0-10.0); %Neutrophils 68.3 % (42.0-75.0); Hemoglobin 12.4 g/dL (12.0-16.0); Mean Corpuscular HGB CONC 33.1 g/dL (32.0-36.0); Mean Corpuscular Hemoglobin 32.7 pg (27.0-31.0); Mean Corpuscular Volume 98.6 fL (78.0-98.0); Mean Platelet Volume 9.5 fL (7.4-10.4); Platelet Count 243 thou/uL (130-400); Red Blood Cell (RBC) Count 3.78 mill/uL (4.20-5.40)
[2019-09-28] MEDS: Enoxaparin Sodium 40 MG/0.4 ML SYRINGE SC SCH (09:11)
[2019-09-28] MEDS: Folic Acid 1 MG TAB PO SCH ×2 (09:11→20:06)
[2019-09-28] MEDS: Ondansetron PF 4 MG/2 ML Vial IVP PRN ×3 (09:12→22:18)
[2019-09-28] MEDS: Multivit, Therapeutic 1 TAB PO SCH (09:12)
[2019-09-28] MEDS: Magnesium Oxide 400 MG TAB PO SCH (09:12)
[2019-09-28] MEDS: D5 1/2 NS w/20 mEq KCL 1,000 ML IV SCH (09:17)
[2019-09-28 09:32] LABS: Anion Gap 9 mmol/L (10-20); BUN (Urea Nitrogen) Less than 4 mg/dL (9.8-20.1); Calc. Creatinine Clearance 82 mL/min (70-130); Calcium 8.4 mg/dL (7.8-10.44); Carbon Dioxide 27 mmol/L (22-29); Chloride 103 mmol/L (98-107); Estimated GFR-MDRD Greater than 90; Glucose 115 mg/dL (70-105); Magnesium 1.7 mg/dL (1.6-2.6); Sodium 136 mmol/L (136-145)
[2019-09-28] MEDS: Acetaminophen/Codeine 30-300mg Tablet PO PRN ×2 (13:21→20:07)
--- NOTE | 2019-09-28 18:32 | PDOC.HOSPP ---
- Subjective Encounter Date: 09/28/19 Subjective: Pt seen AAO3 , Denies complaint other than back pain nad says tramadol does not work and wants something other than tramadol can be given for pain - Objective Vital Signs & Weight: Vital Signs (12 hours) Temp Pulse Resp BP Pulse Ox 09/28/19 15:44 98.7 F 61 16 118/60 97 09/28/19 11:23 99.4 F 60 17 102/56 L 96 09/28/19 07:46 98.5 F 59 L 17 108/56 L 97 Weight Admit Weight 100 lb 0.027 oz Weight 93 lb 8 oz I&O: 09/27/19 09/28/19 09/29/19 06:59 06:59 06:59 Intake Total 2140 925 780 Output Total 1000 Balance 1140 925 780 Result Diagrams: 09/28/19 08:45 09/28/19 08:45 Hospitalist ROS - Review of Systems Constitutional: denies: fever Eyes: denies: pain ENT: denies: ear pain Respiratory: denies: cough Cardiovascular: denies: chest pain Gastrointestinal: reports: nausea Musculoskeletal: reports: back pain Neurological: denies: weakness - Medication Medications: Active Medications Generic Name Dose Route Start Last Admin Trade Name Freq PRN Reason Stop Dose Admin Acetaminophen/Codeine Phosphate 1 tab 09/28/19 12:57 09/28/19 13:21 Tylenol #3 PO 1 tab Q6H PRN Administration Pain Alprazolam 0.5 mg 09/26/19 09:52 09/28/19 09:12 Xanax PO 0.5 mg TIDPRN PRN Administration Anxiety Enoxaparin Sodium 40 mg 09/27/19 09:00 09/28/19 09:11 Lovenox SC 40 mg 0900 SUMA Administration Folic Acid 1 mg 09/25/19 21:00 09/28/19 09:11 Folvite PO 1 mg BID SUMA Administration Lorazepam 0.5 mg 09/26/19 09:54 09/27/19 21:08 Ativan SLOW IVP 0.25 mg Q6H PRN Administration Anxiety/Agitation Magnesium Oxide 400 mg 09/27/19 09:00 09/28/19 09:12 Magnesium Oxide PO 400 mg DAILY SUMA Administration Multivitamins 1 tab 09/26/19 09:00 09/28/19 09:12 Theragran PO 1 tab DAILY SUMA Administration Ondansetron HCl 4 mg 09/26/19 09:43 09/28/19 15:52 Zofran IVP 4 mg Q6H PRN Administration Nausea/Vomiting Pantoprazole Sodium 40 mg 09/27/19 09:00 09/28/19 09:12 Protonix PO 40 mg DAILY SUMA Administration - Exam General Appearance: awake alert Eye: anicteric sclera ENT: normocephalic atraumatic Neck: supple Heart: no murmur Respiratory: no wheezes Gastrointestinal: soft Extremities: no cyanosis Skin: normal turgor Neurological: cranial nerve grossly intact Musculoskeletal: normal tone Psychiatric: normal affect Hosp A/P - Plan Acute on Chronic encephaloapthy possible multifactorial possible due to benzodiazipines and posible poly pharmacy and underlaying psychiatric disorder , Pt today AAO3 Denies hallucinations or hearing voices or suicidial ideation Pt occasionally speaks incoherent and and symptoms are getting worse lately had frequent visits to hospital last few wks Admission in psychiatry facility may help , MRI brain neg , no focal deficit Acute on chronic hypokalemia with low bicarbonate possible starvation related , discussed with nephrology Dr Baxter who managed this pt last admission COPD looks compensated will use prn nebs H/O [place] abuse and drug abuse in the past , continue supportive care DVT/GI prophyalxis DNR/DNI Plan Discussed with brother at bed site again he is concerned pt having similar complaints agian and again and concerned should be evaluated psychiatrically and if needs in patient psychiatry admission , Pt medically cleared for MR evaluation
[2019-09-28] MEDS ORDERED: Sodium Chloride 0.9% 10 ML ONE (20:00)
[2019-09-29] MEDS ORDERED: Sodium Chloride 0.9% 10 ML ONE (05:26)
[2019-09-29] MEDS: Acetaminophen/Codeine 30-300mg Tablet PO PRN ×3 (05:32→20:17)
[2019-09-29] MEDS: Ondansetron PF 4 MG/2 ML Vial IVP PRN (05:32)
[2019-09-29 07:24] LABS: Anion Gap 13 mmol/L (10-20); BUN (Urea Nitrogen) 5 mg/dL (9.8-20.1); Calc. Creatinine Clearance 81 mL/min (70-130); Calcium 8.7 mg/dL (7.8-10.44); Carbon Dioxide 26 mmol/L (22-29); Chloride 103 mmol/L (98-107); Estimated GFR-MDRD Greater than 90; Glucose 99 mg/dL (70-105); Magnesium 1.8 mg/dL (1.6-2.6); Potassium 3.1 mmol/L (3.5-5.1); Sodium 139 mmol/L (136-145)
[2019-09-29] MEDS ORDERED: Potassium Chloride 20 MEQ TAB PO SCH ×2 (08:00→10:15)
[2019-09-29] MEDS: Enoxaparin Sodium 40 MG/0.4 ML SYRINGE SC SCH (08:50)
[2019-09-29] MEDS: Multivit, Therapeutic 1 TAB PO SCH (08:51)
[2019-09-29] MEDS: Magnesium Oxide 400 MG TAB PO SCH (08:51)
[2019-09-29] MEDS: Folic Acid 1 MG TAB PO SCH ×2 (08:51→20:17)
[2019-09-29 11:15] LABS: #Eosinphils 0.1 thou/uL (0.0-0.7); #Monocytes 0.8 thou/uL (0.11-0.59); #Neutrophils 6.1 thou/uL (1.40-6.50); %Basophils 0.4 % (0.0-1.0); %Eosinophils 0.7 % (0.0-10.0); %Monocytes 8.5 % (0.0-10.0); %Neutrophils 68.5 % (42.0-75.0); Hemoglobin 12.7 g/dL (12.0-16.0); Mean Corpuscular HGB CONC 34.4 g/dL (32.0-36.0); Mean Corpuscular Hemoglobin 33.4 pg (27.0-31.0); Mean Corpuscular Volume 97.2 fL (78.0-98.0); Mean Platelet Volume 9.4 fL (7.4-10.4); Platelet Count 239 thou/uL (130-400); RBC Distribution Width 12.8 % (11.5-14.5); Red Blood Cell (RBC) Count 3.78 mill/uL (4.20-5.40)
[2019-09-29 11:24] LABS: Anion Gap 13 mmol/L (10-20); BUN (Urea Nitrogen) 6 mg/dL (9.8-20.1); Calc. Creatinine Clearance 72 mL/min (70-130); Calcium 8.7 mg/dL (7.8-10.44); Carbon Dioxide 26 mmol/L (22-29); Chloride 102 mmol/L (98-107); Estimated GFR-MDRD Greater than 90; Glucose 116 mg/dL (70-105); Magnesium 1.8 mg/dL (1.6-2.6); Potassium 3.7 mmol/L (3.5-5.1); Sodium 137 mmol/L (136-145)
--- NOTE | 2019-09-29 13:26 | PDOC.HOSPP ---
- Subjective Encounter Date: 09/29/19 Encounter Time: 13:25 Subjective: Ms. Gasca was seen today in follow-up of metabolic encephalopathy. She does not have any complaints today. - Objective Vital Signs & Weight: Vital Signs (12 hours) Temp Pulse Resp BP Pulse Ox 09/29/19 11:00 98.3 F 60 16 114/54 L 97 09/29/19 08:45 98.4 F 53 L 16 103/53 L 99 09/29/19 04:00 97.7 F 48 L 20 120/59 L 96 Weight Admit Weight 100 lb 0.027 oz Weight 96 lb 4.8 oz I&O: 09/28/19 09/29/19 09/30/19 06:59 06:59 05:59 Intake Total 925 1080 Balance 925 1080 Result Diagrams: 09/29/19 10:46 09/29/19 10:46 Hospitalist ROS - Medication Medications: Active Medications Generic Name Dose Route Start Last Admin Trade Name Freq PRN Reason Stop Dose Admin Acetaminophen/Codeine Phosphate 1 tab 09/28/19 12:57 09/29/19 10:56 Tylenol #3 PO 1 tab Q6H PRN Administration Pain Alprazolam 0.5 mg 09/26/19 09:52 09/28/19 22:21 Xanax PO 0.5 mg TIDPRN PRN Administration Anxiety Enoxaparin Sodium 40 mg 09/27/19 09:00 09/29/19 08:50 Lovenox SC 40 mg 0900 SUMA Administration Folic Acid 1 mg 09/25/19 21:00 09/29/19 08:51 Folvite PO 1 mg BID SUMA Administration Lorazepam 0.5 mg 09/26/19 09:54 09/27/19 21:08 Ativan SLOW IVP 0.25 mg Q6H PRN Administration Anxiety/Agitation Magnesium Oxide 400 mg 09/27/19 09:00 09/29/19 08:51 Magnesium Oxide PO 400 mg DAILY SUMA Administration Multivitamins 1 tab 09/26/19 09:00 09/29/19 08:51 Theragran PO 1 tab DAILY SUMA Administration Ondansetron HCl 4 mg 09/26/19 09:43 09/29/19 05:32 Zofran IVP 4 mg Q6H PRN Administration Nausea/Vomiting Pantoprazole Sodium 40 mg 09/27/19 09:00 09/29/19 08:51 Protonix PO 40 mg DAILY SUMA Administration Sodium Chloride 10 ml 09/29/19 05:27 09/29/19 08:56 Flush - Normal Saline IVF 10 ml PRN PRN Administration Saline Flush - Exam Eye: PERRL, anicteric sclera Heart: RRR, no murmur, no gallops, no rubs, normal peripheral pulses Respiratory: CTAB, no wheezes, no rales, no ronchi, normal chest expansion, no tachypnea, normal percussion Gastrointestinal: soft, non-tender, non-distended, normal bowel sounds, no palpable masses, no hepatomegaly Extremities: no cyanosis, no edema Hosp A/P (1) Metabolic encephalopathy Code(s): G93.41 - METABOLIC ENCEPHALOPATHY Status: Acute (2) COPD (chronic obstructive pulmonary disease) Status: Chronic (3) Hypokalemia Code(s): E87.6 - HYPOKALEMIA Status: Acute (4) Moderate protein-calorie malnutrition Code(s): E44.0 - MODERATE PROTEIN-CALORIE MALNUTRITION Status: Chronic (5) Tobacco abuse disorder Code(s): Z72.0 - TOBACCO USE Status: Chronic - Plan * Metabolic encephalopathy- likely due to poly-pharmacy- resolved * Hypokalemia- likely due to poor oral intake- - continue to replace * COPD- stable * Moderate Protein Calorie malnutrition- continue nutritional supplements * Awaiting [facility] Evaluation
[2019-09-29] MEDS: ALPRAZolam 0.5 MG TAB PO PRN (20:18)
[2019-09-30] MEDS: Potassium Chloride 20 MEQ TAB PO SCH (08:25)
[2019-09-30] MEDS: Acetaminophen/Codeine 30-300mg Tablet PO PRN ×2 (08:26→17:45)
[2019-09-30] MEDS: Folic Acid 1 MG TAB PO SCH ×2 (08:26→20:22)
[2019-09-30] MEDS: Magnesium Oxide 400 MG TAB PO SCH (08:26)
[2019-09-30] MEDS: Enoxaparin Sodium 40 MG/0.4 ML SYRINGE SC SCH (08:26)
[2019-09-30] MEDS: Multivit, Therapeutic 1 TAB PO SCH (08:26)
[2019-09-30 09:08] LABS: #Basophils 0.1 thou/uL (0.0-0.2); #Eosinphils 0.1 thou/uL (0.0-0.7); #Lymphocytes 2.1 thou/uL (1.20-3.40); #Monocytes 0.6 thou/uL (0.11-0.59); #Neutrophils 5.3 thou/uL (1.40-6.50); %Basophils 0.6 % (0.0-1.0); %Lymphocytes 26.1 % (21.0-51.0); %Monocytes 7.8 % (0.0-10.0); %Neutrophils 64.5 % (42.0-75.0); Mean Corpuscular HGB CONC 33.5 g/dL (32.0-36.0); Mean Corpuscular Hemoglobin 32.4 pg (27.0-31.0); Mean Corpuscular Volume 96.7 fL (78.0-98.0); Platelet Count 252 thou/uL (130-400); RBC Distribution Width 13.2 % (11.5-14.5); Red Blood Cell (RBC) Count 4.02 mill/uL (4.20-5.40); White Blood Cell (WBC) Count 8.2 thou/uL (4.8-10.8)
[2019-09-30 09:19] LABS: Anion Gap 12 mmol/L (10-20); BUN (Urea Nitrogen) 5 mg/dL (9.8-20.1); Calc. Creatinine Clearance 69 mL/min (70-130); Carbon Dioxide 28 mmol/L (22-29); Chloride 99 mmol/L (98-107); Estimated GFR-MDRD Greater than 90; Glucose 116 mg/dL (70-105); Magnesium 1.9 mg/dL (1.6-2.6); Potassium 3.4 mmol/L (3.5-5.1); Sodium 136 mmol/L (136-145)
--- NOTE | 2019-09-30 11:05 | PDOC.HOSPP ---
- Subjective Encounter Date: 09/30/19 Encounter Time: 11:03 Subjective: Ms. Gasca was seen today in follow-up of metabolic encephalopathy. She does ot have any new complaints except a bit of loose stools. - Objective Vital Signs & Weight: Vital Signs (12 hours) Temp Pulse Resp BP Pulse Ox 09/30/19 08:00 98 F 52 L 16 117/62 96 09/30/19 04:15 98.6 F 55 L 20 123/56 L 96 Weight Admit Weight 100 lb 0.027 oz Weight 95 lb 8 oz I&O: 09/29/19 09/30/19 10/01/19 07:59 06:59 06:59 Intake Total Output Total Balance Result Diagrams: 09/30/19 08:41 09/30/19 08:41 Hospitalist ROS - Medication Medications: Active Medications Generic Name Dose Route Start Last Admin Trade Name Freq PRN Reason Stop Dose Admin Acetaminophen/Codeine Phosphate 1 tab 09/28/19 12:57 09/30/19 08:26 Tylenol #3 PO 1 tab Q6H PRN Administration Pain Alprazolam 0.5 mg 09/26/19 09:52 09/29/19 20:18 Xanax PO 0.5 mg TIDPRN PRN Administration Anxiety Enoxaparin Sodium 40 mg 09/27/19 09:00 09/30/19 08:26 Lovenox SC 40 mg 0900 SUMA Administration Folic Acid 1 mg 09/25/19 21:00 09/30/19 08:26 Folvite PO 1 mg BID SUMA Administration Lorazepam 0.5 mg 09/26/19 09:54 09/27/19 21:08 Ativan SLOW IVP 0.25 mg Q6H PRN Administration Anxiety/Agitation Magnesium Oxide 400 mg 09/27/19 09:00 09/30/19 08:26 Magnesium Oxide PO 400 mg DAILY SUMA Administration Multivitamins 1 tab 09/26/19 09:00 09/30/19 08:26 Theragran PO 1 tab DAILY SUMA Administration Ondansetron HCl 4 mg 09/26/19 09:43 09/29/19 05:32 Zofran IVP 4 mg Q6H PRN Administration Nausea/Vomiting Pantoprazole Sodium 40 mg 09/27/19 09:00 09/30/19 08:26 Protonix PO 40 mg DAILY SUMA Administration Potassium Chloride 40 meq 09/30/19 08:00 09/30/19 08:25 K-Dur PO 40 meq QAM-WM SUMA Administration Sodium Chloride 10 ml 09/29/19 05:27 09/30/19 08:30 Flush - Normal Saline IVF 10 ml PRN PRN Administration Saline Flush - Exam Eye: PERRL, anicteric sclera Heart: RRR, no murmur, no gallops, no rubs, normal peripheral pulses Respiratory: CTAB, no wheezes, no rales, no ronchi, normal chest expansion Gastrointestinal: soft, non-tender, non-distended, normal bowel sounds, no palpable masses, no hepatomegaly Extremities: no cyanosis, no edema Hosp A/P (1) Metabolic encephalopathy Code(s): G93.41 - METABOLIC ENCEPHALOPATHY Status: Acute (2) COPD (chronic obstructive pulmonary disease) Status: Chronic (3) Hypokalemia Code(s): E87.6 - HYPOKALEMIA Status: Acute (4) Moderate protein-calorie malnutrition Code(s): E44.0 - MODERATE PROTEIN-CALORIE MALNUTRITION Status: Chronic (5) Tobacco abuse disorder Code(s): Z72.0 - TOBACCO USE Status: Chronic - Plan * Metabolic encephalopathy- likely due to poly-pharmacy- resolved * Hypokalemia-improved * COPD- stable * Moderate Protein Calorie malnutrition- continue nutritional supplements * She was evaluated by yesterday, and has been cleared for discharge home.
[2019-09-30] MEDS: ALPRAZolam 0.5 MG TAB PO PRN ×2 (11:30→20:23)
[2019-09-30] MEDS: Loperamide HCl 2 MG CAP PO PRN ×2 (12:05→15:42)
[2019-09-30] MEDS ORDERED: Potassium Chloride 20 MEQ TAB PO SCH (13:00)
[2019-10-01] MEDS: Acetaminophen/Codeine 30-300mg Tablet PO PRN ×3 (04:45→18:29)
--- NOTE | 2019-10-01 08:01 | PDOC.EVN ---
Event Note - Event Note Event Note: The discharge for Ms. Gasca was held due to concerns that she is unsteady on her feet, and is at risk for falls. Her family is concerned that she will not be able to manage with Home Health for PT. Therefore she will be kept in the hospital and screened for Rehab.
[2019-10-01] MEDS: Potassium Chloride 20 MEQ TAB PO SCH (08:45)
[2019-10-01] MEDS: Magnesium Oxide 400 MG TAB PO SCH (08:46)
[2019-10-01] MEDS: Enoxaparin Sodium 40 MG/0.4 ML SYRINGE SC SCH ×2 (08:46→09:00)
[2019-10-01] MEDS: Folic Acid 1 MG TAB PO SCH ×2 (08:46→22:19)
[2019-10-01] MEDS: Multivit, Therapeutic 1 TAB PO SCH (08:47)
[2019-10-01] MEDS: ALPRAZolam 0.5 MG TAB PO PRN ×2 (08:53→22:19)
[2019-10-01 09:32] LABS: #Basophils 0.1 thou/uL (0.0-0.2); #Eosinphils 0.1 thou/uL (0.0-0.7); #Monocytes 0.7 thou/uL (0.11-0.59); #Neutrophils 4.6 thou/uL (1.40-6.50); %Basophils 1.1 % (0.0-1.0); %Eosinophils 0.8 % (0.0-10.0); %Monocytes 9.5 % (0.0-10.0); %Neutrophils 61.6 % (42.0-75.0); Hemoglobin 12.9 g/dL (12.0-16.0); Mean Corpuscular HGB CONC 32.6 g/dL (32.0-36.0); Mean Corpuscular Hemoglobin 31.6 pg (27.0-31.0); Mean Corpuscular Volume 96.8 fL (78.0-98.0); Mean Platelet Volume 10.6 fL (7.4-10.4); Platelet Count 258 thou/uL (130-400); RBC Distribution Width 13.2 % (11.5-14.5); Red Blood Cell (RBC) Count 4.08 mill/uL (4.20-5.40); White Blood Cell (WBC) Count 7.4 thou/uL (4.8-10.8)
[2019-10-01 09:56] LABS: Anion Gap 14 mmol/L (10-20); BUN (Urea Nitrogen) 8 mg/dL (9.8-20.1); Calc. Creatinine Clearance 81 mL/min (70-130); Calcium 8.9 mg/dL (7.8-10.44); Carbon Dioxide 25 mmol/L (22-29); Chloride 98 mmol/L (98-107); Estimated GFR-MDRD Greater than 90; Glucose 113 mg/dL (70-105); Magnesium 1.8 mg/dL (1.6-2.6); Potassium 3.9 mmol/L (3.5-5.1); Sodium 133 mmol/L (136-145)
--- NOTE | 2019-10-01 14:16 | PDOC.HOSPP ---
- Subjective Encounter Date: 10/01/19 Encounter Time: 14:13 Subjective: Ms. Gasca was seen today in follow-up of encephalopathy. She does not have any new complaints. - Objective Vital Signs & Weight: Vital Signs (12 hours) Temp Pulse Resp BP BP Pulse Ox 10/01/19 11:40 99.1 F 72 16 90/60 100 10/01/19 08:10 97 10/01/19 07:55 98.8 F 73 18 108/55 L 97 10/01/19 04:40 98.7 F 56 L 16 118/56 L 95 Weight Admit Weight 100 lb 0.027 oz Weight 96 lb 1.6 oz I&O: 09/30/19 10/01/19 10/02/19 06:59 06:59 06:59 Intake Total 1700 Output Total Balance 1700 Result Diagrams: 10/01/19 08:51 10/01/19 08:51 Hospitalist ROS - Medication Medications: Active Medications Generic Name Dose Route Start Last Admin Trade Name Freq PRN Reason Stop Dose Admin Acetaminophen/Codeine Phosphate 1 tab 09/28/19 12:57 10/01/19 13:13 Tylenol #3 PO 1 tab Q6H PRN Administration Pain Alprazolam 0.5 mg 09/26/19 09:52 10/01/19 08:53 Xanax PO 0.5 mg TIDPRN PRN Administration Anxiety Enoxaparin Sodium 40 mg 09/27/19 09:00 10/01/19 08:46 Lovenox SC 40 mg 0900 SUMA Administration Folic Acid 1 mg 09/25/19 21:00 10/01/19 08:46 Folvite PO 1 mg BID SUMA Administration Loperamide HCl 2 mg 09/30/19 11:04 09/30/19 15:42 Imodium PO 2 mg DAILYPRN PRN Administration Diarrhea/Loose Stools Lorazepam 0.5 mg 09/26/19 09:54 09/27/19 21:08 Ativan SLOW IVP 0.25 mg Q6H PRN Administration Anxiety/Agitation Magnesium Oxide 400 mg 09/27/19 09:00 10/01/19 08:46 Magnesium Oxide PO 400 mg DAILY SUMA Administration Multivitamins 1 tab 09/26/19 09:00 10/01/19 08:47 Theragran PO 1 tab DAILY SUMA Administration Ondansetron HCl 4 mg 09/26/19 09:43 09/29/19 05:32 Zofran IVP 4 mg Q6H PRN Administration Nausea/Vomiting Pantoprazole Sodium 40 mg 09/27/19 09:00 10/01/19 08:47 Protonix PO 40 mg DAILY SUMA Administration Potassium Chloride 40 meq 09/30/19 08:00 10/01/19 08:45 K-Dur PO 40 meq QAM-WM SUMA Administration Sodium Chloride 10 ml 09/29/19 05:27 09/30/19 08:30 Flush - Normal Saline IVF 10 ml PRN PRN Administration Saline Flush - Exam Eye: PERRL Heart: RRR, no murmur, no gallops, no rubs, normal peripheral pulses Respiratory: CTAB, no wheezes, no rales, no ronchi, normal chest expansion Gastrointestinal: soft, non-tender, non-distended, normal bowel sounds, no palpable masses Extremities: no cyanosis, no clubbing, no edema Skin: normal turgor, no lesions, no rashes Hosp A/P (1) Metabolic encephalopathy Code(s): G93.41 - METABOLIC ENCEPHALOPATHY Status: Acute (2) COPD (chronic obstructive pulmonary disease) Status: Chronic (3) Hypokalemia Code(s): E87.6 - HYPOKALEMIA Status: Acute (4) Moderate protein-calorie malnutrition Code(s): E44.0 - MODERATE PROTEIN-CALORIE MALNUTRITION Status: Chronic (5) Tobacco abuse disorder Code(s): Z72.0 - TOBACCO USE Status: Chronic - Plan * Metabolic encephalopathy- likely due to poly-pharmacy- resolved * Hypokalemia-improved * COPD- stable * Moderate Protein Calorie malnutrition- continue nutritional supplements * Deconditioning, and balance problems- she is being evaluated for Rehab
[2019-10-01] MEDS ORDERED: Sodium Chloride 0.9% 500 ML IV SCH (14:30)
[2019-10-02] MEDS: Acetaminophen/Codeine 30-300mg Tablet PO PRN ×2 (05:52→12:15)
[2019-10-02] MEDS: Enoxaparin Sodium 40 MG/0.4 ML SYRINGE SC SCH (08:51)
[2019-10-02] MEDS: Magnesium Oxide 400 MG TAB PO SCH (08:52)
[2019-10-02] MEDS: Folic Acid 1 MG TAB PO SCH (08:52)
[2019-10-02] MEDS: Multivit, Therapeutic 1 TAB PO SCH (08:52)
[2019-10-02] MEDS: Potassium Chloride 20 MEQ TAB PO SCH (08:52)
[2019-10-02] MEDS: ALPRAZolam 0.5 MG TAB PO PRN (09:01)
[2019-10-02 11:12] LABS: #Basophils 0.1 thou/uL (0.0-0.2); #Eosinphils 0.1 thou/uL (0.0-0.7); #Lymphocytes 2.5 thou/uL (1.20-3.40); #Monocytes 0.8 thou/uL (0.11-0.59); #Neutrophils 4.7 thou/uL (1.40-6.50); %Basophils 0.9 % (0.0-1.0); %Eosinophils 1.3 % (0.0-10.0); %Lymphocytes 30.3 % (21.0-51.0); %Monocytes 9.3 % (0.0-10.0); %Neutrophils 58.1 % (42.0-75.0); Hemoglobin 13.4 g/dL (12.0-16.0); Mean Corpuscular HGB CONC 32.7 g/dL (32.0-36.0); Mean Corpuscular Hemoglobin 32.1 pg (27.0-31.0); Mean Platelet Volume 9.5 fL (7.4-10.4); Platelet Count 273 thou/uL (130-400); RBC Distribution Width 13.3 % (11.5-14.5); Red Blood Cell (RBC) Count 4.17 mill/uL (4.20-5.40); White Blood Cell (WBC) Count 8.1 thou/uL (4.8-10.8)
[2019-10-02 11:45] LABS: Anion Gap 11 mmol/L (10-20); BUN (Urea Nitrogen) 9 mg/dL (9.8-20.1); Calc. Creatinine Clearance 72 mL/min (70-130); Calcium 9.1 mg/dL (7.8-10.44); Carbon Dioxide 30 mmol/L (22-29); Chloride 98 mmol/L (98-107); Estimated GFR-MDRD Greater than 90; Glucose 89 mg/dL (70-105); Magnesium 1.9 mg/dL (1.6-2.6); Potassium 4.3 mmol/L (3.5-5.1); Sodium 135 mmol/L (136-145)
[2019-10-02] MEDS: Loperamide HCl 2 MG CAP PO PRN (12:15)
--- NOTE | 2019-10-02 14:17 | PDOC.HOSPP ---
- Subjective Encounter Date: 10/02/19 Encounter Time: 14:16 Subjective: Ms. Gasca was seen today in follow-up of altered mental status. She does not have any complaints. - Objective Vital Signs & Weight: Vital Signs (12 hours) Temp Pulse Pulse Pulse Resp BP BP 10/02/19 11:13 99.2 F 66 14 10/02/19 09:36 69 87 89/56 L 93/63 10/02/19 07:15 10/02/19 07:09 99.1 F 77 18 10/02/19 04:45 10/02/19 04:00 98.3 F 51 L 21 H BP BP BP Pulse Ox 10/02/19 11:13 95/50 L 97 10/02/19 09:36 10/02/19 07:15 98 10/02/19 07:09 135/61 98 10/02/19 04:45 102/55 L 10/02/19 04:00 101/46 L 97 Weight Admit Weight 100 lb 0.027 oz Weight 96 lb 1.6 oz I&O: 10/01/19 10/02/19 10/03/19 06:59 06:59 06:59 Intake Total 1700 1650 Balance 1700 1650 Result Diagrams: 10/02/19 10:46 10/02/19 10:46 Hospitalist ROS - Medication Medications: Active Medications Generic Name Dose Route Start Last Admin Trade Name Freq PRN Reason Stop Dose Admin Acetaminophen/Codeine Phosphate 1 tab 09/28/19 12:57 10/02/19 12:15 Tylenol #3 PO 1 tab Q6H PRN Administration Pain Alprazolam 0.5 mg 09/26/19 09:52 10/02/19 09:01 Xanax PO 0.5 mg TIDPRN PRN Administration Anxiety Enoxaparin Sodium 40 mg 09/27/19 09:00 10/02/19 08:51 Lovenox SC Not Given 0900 SUMA Folic Acid 1 mg 09/25/19 21:00 10/02/19 08:52 Folvite PO 1 mg BID SUMA Administration Loperamide HCl 2 mg 09/30/19 11:04 10/02/19 12:15 Imodium PO 2 mg DAILYPRN PRN Administration Diarrhea/Loose Stools Magnesium Oxide 400 mg 09/27/19 09:00 10/02/19 08:52 Magnesium Oxide PO 400 mg DAILY SUMA Administration Multivitamins 1 tab 09/26/19 09:00 10/02/19 08:52 Theragran PO 1 tab DAILY SUMA Administration Ondansetron HCl 4 mg 09/26/19 09:43 09/29/19 05:32 Zofran IVP 4 mg Q6H PRN Administration Nausea/Vomiting Pantoprazole Sodium 40 mg 09/27/19 09:00 10/02/19 08:52 Protonix PO 40 mg DAILY SUMA Administration Potassium Chloride 40 meq 09/30/19 08:00 10/02/19 08:52 K-Dur PO 40 meq QAM-WM SUMA Administration Sodium Chloride 10 ml 09/29/19 05:27 09/30/19 08:30 Flush - Normal Saline IVF 10 ml PRN PRN Administration Saline Flush - Exam Eye: PERRL Heart: RRR, no murmur, no gallops, no rubs, normal peripheral pulses Respiratory: CTAB, no wheezes, no rales, no ronchi, normal chest expansion, no tachypnea, normal percussion Gastrointestinal: soft, non-tender, non-distended, normal bowel sounds, no palpable masses, no hepatomegaly Extremities: no cyanosis, no clubbing, no edema Hosp A/P (1) Metabolic encephalopathy Code(s): G93.41 - METABOLIC ENCEPHALOPATHY Status: Acute (2) COPD (chronic obstructive pulmonary disease) Status: Chronic (3) Hypokalemia Code(s): E87.6 - HYPOKALEMIA Status: Acute (4) Moderate protein-calorie malnutrition Code(s): E44.0 - MODERATE PROTEIN-CALORIE MALNUTRITION Status: Chronic (5) Tobacco abuse disorder Code(s): Z72.0 - TOBACCO USE Status: Chronic - Plan * Metabolic encephalopathy-resolved * COPD- stable * Moderate Protein Calorie malnutrition- continue nutritional supplements * Deconditioning, and balance problems- ( she was too high functioning for Rehab ) she is now being evaluated for longterm
[2019-10-02 15:51] VITALS: BP 113/65; TEMP 98.9
--- NOTE | 2019-10-02 21:57 | DIS ---
DATE OF ADMISSION: 09/26/2019 DATE OF DISCHARGE: 10/02/2019 PRIMARY CARE PHYSICIAN: The patient does not have a primary care physician. DISCHARGE DISPOSITION: [facility]. DISCHARGE DIAGNOSES: 1. Acute metabolic encephalopathy. 2. Polypharmacy. 3. Chronic obstructive pulmonary disease. 4. Moderate protein calorie malnutrition. 5. Tobacco abuse. DISCHARGE MEDICATIONS: Include: 1. K-Dur 20 mEq twice daily. 2. MiraLAX 17 g twice daily. 3. Multivitamin once daily. 4. Magnesium oxide 400 mg daily. 5. Omeprazole 40 mg daily. 6. ProAir inhaler p.r.n. 7. Alprazolam dose has been decreased to 0.5 mg t.i.d. as needed. PROCEDURES DONE DURING THE ADMISSION: The patient had an MRI of the brain, which was negative. The patient had a CT scan of the brain also negative. CODE STATUS: DNR. HOSPITAL COURSE: Ms. Gasca is a pleasant 58-year-old female who was admitted to the hospital with altered mental status. She was confused, lethargic and hallucinating. She has come to the hospital multiple times. Her hydrocodone was discontinued and the dose of alprazolam was decreased and she returned back to her baseline mental status. There was concern for her safety at home as well as for her balance and for this reason, a referral was made to the [facility] nursing facility and she was excepted there and transferred on 10/02/2019. Job ID: [id number]
--- NOTE | 2019-10-03 03:47 | PQF ---
NEO HUNTER TONI MD [id number] [facility]-280 [id number] CLINICAL DOCUMENTATION CLARIFICATION FORM: POST DISCHARGE Addendum to original discharge summary date: ____ Late entry note date: __ DATE: 10/03/19 ATTN: Alvarez Cardenas Please exercise your independent, professional judgment in responding to the clarification form. Clinical indicators are provided on the bottom of this form for your review In your clinical opinion based on clinical findings below, can you please further clarify documentation of Encephalopathy due to Polypharmacy if: Please check appropriate box(s): [ X ] Encephalopathy due to adverse effecy of Polypharmacy [ ] Encephalopathy due to Toxic effect of Polypharmacy [ ] Other condition, please condition: [ ] Unable to determine In addition, please specify: Present on Admission (POA): [ X ] Yes [ ] No [ ] Unable to determine For continuity of documentation, please document condition throughout progress notes and discharge summary. Thank You. CLINICAL INDICATORS - SIGNS / SYMPTOMS / LABS H&P p1 09/26 Dr Tadeo brought by brother to the hospital due to confusion H&P p1 09/26 Dr Tadeo She untermittently gets more confused, incoherent and speaks incoherently H&P p1 09/26 Dr Tadeo toxicollogy negative for Barbiturates, tricyclic but benzodiazepine detected Hospitalist PN p5 08/29 Acute on chronic encephalopathy possible multifactorial possible due to benzodiazipnes and underlying psychiatric disorder RISK FACTORS H&P p1 09/26- Drug abuse H&P p1 09/26- Anxiety Disorder H&P p1 09/26-ACute on Chronic Encephalopathy TREATMENTS: Ordered 09/26 Toxocology Ordered 09/26 MRI brain (This form is maintained as a part of the permanent medical record) 2014 [email or web address] All Rights Reserved [email or web address] [not provided] MTDD
== END 2019-10-02 16:48 | DRG 92 ==
LOC: ERS 12:03 → 2NO 16:59 → OBSVTOIN 09-26 09:43
PROVIDERS: ADMIT Internal Medicine; ATTEND Internal Medicine
DX: G92 Toxic encephalopathy (principal); E44.0 Moderate protein-calorie malnutrition; Z68.1 Body mass index [BMI] 19.9 or less, adult; Z66 Do not resuscitate; J44.9 Chronic obstructive pulmonary disease, unspecified; F41.9 Anxiety disorder, unspecified; G89.29 Other chronic pain; M54.9 Dorsalgia, unspecified; E87.6 Hypokalemia; T50.915A Adverse effect of multiple unspecified drugs, medicaments and biological substances, initial encounter; Z28.21 Immunization not carried out because of patient refusal; Z88.1 Allergy status to other antibiotic agents; Z79.899 Other long term (current) drug therapy
CPT/HCPCS: 36415; 36416; 70450; 70551; 71045; 80048; 80053; 80306; 80307; 81003; 81015; 81025; 82010; 82140; 82550; 82607; 82746; 82805; 83605; 83735; 83880; 84100; 84443; 84484; 85025; 87086; 96361; 96365; 96366; 96367; 96376; J1650; J2060; J2405; J3411; J3475; J3480; J7050; J7070

== ENCOUNTER 2019-11-02 12:04 | Inpatient (IN) | payer MEDICARE ==
[~2019-11-02 12:04] MED LIST: Iopamidol-370 76% 500 ML 1 ML ONE
[2019-11-02 12:34] LABS: #Lymphocytes 1.6 thou/uL (1.20-3.40); #Monocytes 0.9 thou/uL (0.11-0.59); #Neutrophils 16.6 thou/uL (1.40-6.50); %Basophils 0.1 % (0.0-1.0); %Lymphocytes 8.5 % (21.0-51.0); %Monocytes 4.9 % (0.0-10.0); %Neutrophils 86.4 % (42.0-75.0); Hemoglobin 16.5 g/dL (12.0-16.0); Mean Corpuscular HGB CONC 32.6 g/dL (32.0-36.0); Mean Corpuscular Hemoglobin 31.4 pg (27.0-31.0); Mean Corpuscular Volume 96.3 fL (78.0-98.0); Mean Platelet Volume 6.8 fL (7.4-10.4); Platelet Count 494 thou/uL (130-400); RBC Distribution Width 12.5 % (11.5-14.5); Red Blood Cell (RBC) Count 5.26 mill/uL (4.20-5.40); White Blood Cell (WBC) Count 19.2 thou/uL (4.8-10.8)
[2019-11-02] MEDS ORDERED: Morphine 4 MG/ML VIAL ONE ×2 (12:54→15:02)
[2019-11-02] MEDS ORDERED: Ondansetron PF 4 MG/2 ML Vial ONE ×2 (12:54→16:07)
[2019-11-02 13:25] LABS: ALT (SGPT) 22 U/L (8-55); AST (SGOT) 16 U/L (5-34); Albumin 5.3 g/dL (3.4-4.8); Alkaline Phosphatase 86 U/L (40-110); Anion Gap 28 mmol/L (10-20); BUN (Urea Nitrogen) 33 mg/dL (9.8-20.1); Bilirubin, Total 0.8 mg/dL (0.2-1.2); Calc. Creatinine Clearance 0 mL/min (70-130); Calcium 10.9 mg/dL (7.8-10.44); Carbon Dioxide 21 mmol/L (23-31); Chloride 90 mmol/L (98-107); Estimated GFR-MDRD 50; Globulin 3.1 g/dL (2.4-3.5); Glucose 176 mg/dL (80-115); Lipase 5 U/L (8-78); Potassium 4.7 mmol/L (3.5-5.1); Protein, Total 8.4 g/dL (6.0-8.3); Sodium 134 mmol/L (136-145)
[2019-11-02] MEDS ORDERED: Glycopyrrolate 0.2 MG/ML 5 ML SYRINGE SLOW IVP SCH (13:45)
--- NOTE | 2019-11-02 14:33 | CT ---
CT Abdomen Pelvis W Con: 11/02/2019 12:51 PM CLINICAL INFORMATION: Abdominal pain for 2 days COMPARISON: None. TECHNIQUE: Multiple contiguous axial images were obtained and a CT of the abdomen and pelvis with IV contrast. C oronal and sagittal reformats were performed. FINDINGS: Lower Chest: within normal limits. Abdomen: Liver: within normal limits. Bile Ducts: Normal caliber. Gallbladder: No calcified gallstones. Normal caliber wall. Pancreas: within normal limits. Spleen: within normal limits. Adrenals: within normal limits. Kidneys: 1.7 cm right renal cyst. Pelvis: Reproductive Organs: No pelvic masses. Ureters: within normal limits. Bladder: within normal limits. Peritoneum: No ascites or free air, no fluid collection. Bowel: There is thickening of the wall of the second and third portions of the duodenum. The rest of the small bowel is unremarkable. The colon is unremarkable. Mesentery and Retroperitoneum: No enlarged mesenteric or retroperitoneal lymph nodes. Vessels: Atherosclerotic calcifications. Abdominal Wall: within normal limits. Bones: Within normal limits IMPRESSION: Edema is seen in the wall of the duodenum which may represent duodenitis.
[2019-11-02 14:43] LABS: Bilirubin 1+ (Negative); Blood, Urine Trace (Negative); Clarity Clear (Clear); Glucose, Urine (Dipstick) Normal (Negative); Leukocyte Negative Leu/uL (Negative); Nitrite Negative (Negative); Protein, Urine (Dipstick) 70 mg/dL (Neg-Trace)
[2019-11-02 14:49] LABS: Bacteria/HPF 1+ HPF (None Seen)
--- NOTE | 2019-11-02 17:03 | RAD ---
Chest one view HISTORY: Chest pain. Vomiting. COMPARISON: 09/25/2019. FINDINGS: Cardiac silhouette is magnified by projection. Pulmonary vasculature is unremarkable. Media stinum is midline. No lobar consolidation or evidence of free subdiaphragmatic gas. air sampling and monitoring leads overlie the chest. IMPRESSION: No active cardiopulmonary abnormalities are demonstrated.
[2019-11-02] MEDS ORDERED: Zolpidem Tartrate 5 MG TAB PO PRN (17:43)
[2019-11-02 17:45] VITALS: BMI 16.3
[2019-11-02] MEDS: Sodium Chloride 0.9% 1,000 ML IV SCH (18:17)
[2019-11-02] MEDS: cefTRIAXone\\ROCEPHIN 1 GM in Sodium Chloride 0.9% 100 ML IVPB SCH (18:17)
[2019-11-02] MEDS: Ondansetron PF 4 MG/2 ML Vial IVP PRN (18:17)
[2019-11-02] MEDS: Morphine 2 MG/ML SYRINGE SLOW IVP PRN ×2 (18:24→22:07)
[2019-11-02] MEDS: Vancomycin HCl 1 GM in Premix Bag 1 BAG IVPB SCH (19:58)
[2019-11-02 20:37] LABS: Lactic Acid 0.9 mmol/L (0.5-2.2)
[2019-11-02] MEDS ORDERED: hydrALAZINE 20 MG/ML VIAL SLOW IVP PRN (20:47)
[2019-11-02] MEDS ORDERED: hydrALAZINE 20 MG/ML VIAL SLOW IVP SCH (21:00)
[2019-11-02] MEDS ORDERED: Famotidine/PF 20 mg/2ml Vial SLOW IVP SCH (21:00)
[2019-11-03] MEDS: Ondansetron PF 4 MG/2 ML Vial IVP PRN ×4 (00:04→19:32)
--- NOTE | 2019-11-03 00:05 | HP ---
HISTORY OF PRESENT ILLNESS: Ms. Gasca is a 59-year-old woman. She came to the ER with complaint of generalized weakness, abdominal pain, nausea, and vomiting. According to the patient, her problem started about 2 days ago. She denies any associated diarrhea. She denies any fever. She was noticed to be very dehydrated and a CT scan done shows duodenitis. She has been admitted for management. PAST MEDICAL HISTORY: Remarkable for hypertension. She is also known to have a history of osteoporosis and arthritis. PAST SURGICAL HISTORY: Unremarkable. ALLERGIES: SHE CLAIMS TO HAVE ALLERGY TO Z-SURESH. SOCIAL HISTORY: She is an active smoker. She denies EtOH abuse. She denies substance abuse. FAMILY HISTORY: Reviewed and is not contributory. MEDICATIONS: Prior to admission, she was on: 1. Tylenol. 2. Albuterol inhaler. 3. Magnesium oxide. 4. Multivitamin. 5. Omeprazole. 6. MiraLAX. 7. Potassium chloride. 8. Diphenoxylate/atropine. REVIEW OF SYSTEMS: CONSTITUTIONAL: She denies any fever. Admits to generalized weakness. HEENT: No headache. No ocular pain. No sore throat. No rhinorrhea. No earache. No epistaxis. NECK: No neck pain. No neck stiffness. CARDIOVASCULAR: No shortness of breath. No chest pain. PULMONARY: Some dry cough. GASTROINTESTINAL: Admits to nausea and vomiting. No diarrhea. Also admit to abdominal pain. GENITOURINARY: No dysuria. No hematuria. ENDOCRINOLOGY: No heat or cold intolerance. No polyuria, polydipsia, or polyphagia. MUSCULOSKELETAL: Admits to arthralgia, back ache. HEMATOLOGY: No abnormal bleeding. No ecchymosis. LYMPHATIC: No palpable lymphadenopathy. No painful lymphadenopathy. SKIN: No rash. No itching. ALLERGIES: No hay fever. NEUROLOGICAL: No seizure. PSYCHIATRIC: No anxiety. No depression. PHYSICAL EXAMINATION: GENERAL: At the current time, she is alert, oriented, in no acute distress. Sick-looking. VITAL SIGNS: Her latest vital signs show a temperature of 98.6, pulse rate 118, respiratory rate 17, blood pressure 179/89. HEENT: Head is normocephalic and atraumatic. Both her pupils are equal and reactive. Ears and nose normal. Oral mucosa is dry. She has a very poor skin turgor. NECK: Supple. There is no distention of the jugular vein. No lymphadenopathy felt. Thyroid gland not palpable. There is no carotid bruit. CHEST: Symmetrical with regular S1 and S2. LUNGS: Clear. ABDOMEN: Soft. Bowel sounds heard. We could not appreciate any organomegaly. EXTREMITIES: Limbs show no edema. NEUROLOGICAL: She moves all extremities. LABORATORY DATA: Abdomen and pelvis CT was reported to show edema in the inferior wall of the duodenum which may represent duodenitis. CBC showed WBC of 19.2, hemoglobin of 16.5, hematocrit of 50.7, MCV of 96.3, platelets of 494. Chemistry and lytes showed a sodium of 134, potassium 4.7, chloride 90, CO2 of 21, BUN 33, creatinine 1.1, glucose 176, calcium 10.9, total protein 0.8, AST 16, ALT 22, alkaline phosphatase 86, total protein 8.4, albumin 5.3, globulin 3.1. Lipase is 5. Urinalysis suggestive of contamination, mainly epithelial cells. ASSESSMENT: This is a 59-year-old woman with history of hypertension, admitted with nausea, vomiting, and noticed to be very dehydrated. Abdomen and pelvis CT shows possible duodenitis. Her WBC was elevated, raising the possibility of sepsis. Lactic acid level is in progress. The patient will be started on antibiotics, so she will be hydrated vigorously. We will check her blood culture. Job ID: [id number]
[2019-11-03] MEDS: Sodium Chloride 0.9% 1,000 ML IV SCH ×5 (01:21→15:42)
[2019-11-03] MEDS: Morphine 2 MG/ML SYRINGE SLOW IVP PRN ×5 (02:13→21:26)
[2019-11-03 07:21] LABS: Anion Gap 11 mmol/L (10-20); BUN (Urea Nitrogen) 9 mg/dL (9.8-20.1); Calc. Creatinine Clearance 73 mL/min (70-130); Calcium 8.4 mg/dL (7.8-10.44); Carbon Dioxide 18 mmol/L (23-31); Chloride 106 mmol/L (98-107); Estimated GFR-MDRD Greater than 90; Glucose 101 mg/dL (80-115); Potassium 3.5 mmol/L (3.5-5.1); Sodium 131 mmol/L (136-145)
[2019-11-03 08:30] LABS: #Basophils 0.1 thou/uL (0.0-0.2); #Lymphocytes 1.8 thou/uL (1.20-3.40); #Monocytes 0.7 thou/uL (0.11-0.59); #Neutrophils 12.1 thou/uL (1.40-6.50); %Basophils 0.6 % (0.0-1.0); %Eosinophils 0.3 % (0.0-10.0); %Lymphocytes 12.2 % (21.0-51.0); %Monocytes 4.7 % (0.0-10.0); %Neutrophils 82.2 % (42.0-75.0); Hemoglobin 11.6 g/dL (12.0-16.0); Mean Corpuscular HGB CONC 33.8 g/dL (32.0-36.0); Mean Corpuscular Hemoglobin 33.1 pg (27.0-31.0); Mean Platelet Volume 6.4 fL (7.4-10.4); Platelet Count 365 thou/uL (130-400); RBC Distribution Width 12.3 % (11.5-14.5); Red Blood Cell (RBC) Count 3.52 mill/uL (4.20-5.40); White Blood Cell (WBC) Count 14.7 thou/uL (4.8-10.8)
[2019-11-03] MEDS: Enoxaparin Sodium 40 MG/0.4 ML SYRINGE SC SCH (08:43)
[2019-11-03] MEDS: Vancomycin HCl 1 GM in Premix Bag 1 BAG IVPB SCH ×2 (08:43→19:35)
--- NOTE | 2019-11-03 11:12 | PDOC.HOSPP ---
- Subjective Encounter Date: 11/03/19 Encounter Time: 10:10 Subjective: +Nausea, vomiting, abdominal pain.. - Objective Vital Signs & Weight: Vital Signs (12 hours) Temp Pulse Resp BP Pulse Ox 11/03/19 08:17 99.1 F 74 18 151/56 H 97 11/03/19 04:04 98.5 F 93 19 123/68 98 11/03/19 00:10 98.4 F 108 H 18 151/69 H 99 Weight Weight 95 lb 1.6 oz I&O: 11/02/19 11/03/19 11/04/19 06:59 06:59 06:59 Intake Total 2833 Balance 2833 Result Diagrams: 11/03/19 06:40 11/03/19 06:40 Hospitalist ROS - Medication Medications: Active Medications Generic Name Dose Route Start Last Admin Trade Name Freq PRN Reason Stop Dose Admin Enoxaparin Sodium 40 mg 11/03/19 09:00 11/03/19 08:43 Lovenox SC 40 mg 0900 SUMA Administration Famotidine 20 mg 11/03/19 11:15 11/03/19 11:05 Pepcid SLOW IVP 11/03/19 12:00 20 mg NOW SUMA Administration Ceftriaxone Sodium 1 gm/ 100 mls @ 200 mls/hr 11/02/19 18:00 11/02/19 18:17 Sodium Chloride IVPB 100 mls Q24HR SUMA Administration Vancomycin HCl 1 gm/ Device 200 mls @ 200 mls/hr 11/02/19 21:00 11/03/19 08: 43 IVPB 200 mls Q12HR SUMA Administration Sodium Chloride 1,000 mls @ 150 mls/hr 11/02/19 17:43 11/03/19 08:44 Normal Saline 0.9% IV 1,000 mls .Q6H40M SUMA Administration Morphine Sulfate 2 mg 11/02/19 18:12 11/03/19 11:00 Morphine SLOW IVP 2 mg Q4H PRN Administration Pain Ondansetron HCl 4 mg 11/02/19 17:43 11/03/19 06:27 Zofran IVP 4 mg Q6H PRN Administration Nausea/Vomiting - Exam General Appearance: awake alert Neck: no JVD Heart: RRR Respiratory: CTAB Gastrointestinal: soft Extremities: no edema Psychiatric: A&O x 3 Hosp A/P (1) Duodenitis Code(s): K29.80 - DUODENITIS WITHOUT BLEEDING Status: Acute Plan: Possibly due to NSAIDS. (2) Nausea & vomiting Code(s): R11.2 - NAUSEA WITH VOMITING, UNSPECIFIED Status: Acute Plan: Possibly due to above.. On PPI with no improvement. GI consulted. (3) Sepsis Code(s): A41.9 - SEPSIS, UNSPECIFIED ORGANISM Status: Acute (4) Sepsis Code(s): A41.9 - SEPSIS, UNSPECIFIED ORGANISM Status: Acute Plan: On antibiotics.. F/u cultures.. - Plan Continue hydration, antibiotics, PPI. f/u with GI.
[2019-11-03] MEDS ORDERED: Famotidine/PF 20 mg/2ml Vial SLOW IVP SCH ×2 (11:15→21:00)
[2019-11-03] MEDS ORDERED: Acetaminophen 325 MG TAB PO PRN (16:35)
[2019-11-03] MEDS: cefTRIAXone\\ROCEPHIN 1 GM in Sodium Chloride 0.9% 100 ML IVPB SCH (18:01)
[2019-11-03] MEDS: Mag-Al 1200 mg/1200 mg/30 ML UDCUP PO PRN (19:32)
[2019-11-03] MEDS: Famotidine/PF 20 mg/2ml Vial SLOW IVP SCH (19:33)
--- NOTE | 2019-11-03 21:35 | CON ---
DATE OF CONSULTATION: 11/03/2019 CHIEF COMPLAINT: Abdominal pain and nausea and vomiting. HISTORY OF PRESENT ILLNESS: Ms. Gasca is a 59-year-old woman with a history of chronic back pain. She had been on oxycodone up until August when that was discontinued. She has a history of chronic constipation while she was on the oxycodone and then states that she developed an anal fissure that was evaluated by Dr. Ashford. She has also had a colonoscopy in the last year by Dr. Lion with a couple of polyps removed according to the patient's report. About a month ago, she ran out of omeprazole and just started taking an [id number] acid media/instructional designer. Starting 3days ago, she developed epigastric, sharp abdominal pain that comes and goes for several minutes at a time. She had been taking Tylenol with Codeine more recently, but this week she was taking Advil 2 tablets every 3 or 4 hours. That was just for a day and then the day after that, she took a couple of Aleve. The next day, she developed nausea and vomiting. She vomited multiple times through the day for a couple of days and ultimately came on to the emergency room where she was found to have dehydration and she was admitted for fluids and further care. Her hemoglobin decreased from 16.5 to 11.6 after rehydration. Her creatinine improved from 1.11 to 0.55 after fluids. She has had no blood in the stool. She did have a few episodes of diarrhea for a couple of days earlier in the week and she took loperamide for that. She has had no bowel movement over the last 3 days. She had a CT scan performed when she came to the emergency room that showed some thickening in the second portion of the duodenum. PAST MEDICAL HISTORY: Chronic back pain, hypertension, osteoporosis. PAST SURGICAL HISTORY: Colonoscopy. FAMILY HISTORY: Negative for GI malignancy or liver disease. SOCIAL HISTORY: She had been smoking half a pack a day. She has reduced more recently to around 3 cigarettes per day. No alcohol. No drugs. ALLERGIES: AZITHROMYCIN. MEDICATIONS: Prior to admission, 1. Tylenol with Codeine. 2. Albuterol inhaler. 3. Magnesium. 4. Multiple vitamin. 5. Omeprazole, however, this again she ran out over a month ago and has been taking [id number] acid media/instructional designer more recently, she believes ranitidine. 6. MiraLAX, however, she has not been taking that over the last week. 7. Potassium. 8. Loperamide. REVIEW OF SYSTEMS: Negative x10 systems reviewed, except as stated in the history of present illness. She reports anxiety and has been on Xanax for years. PHYSICAL EXAMINATION: VITAL SIGNS: Temperature is 98.5, pulse 68, blood pressure 154/66. GENERAL: She is in no acute distress. Alert and oriented x3. HEENT: Eyes have no scleral icterus. Oropharynx is clear without lesions. LYMPH: No cervical or supraclavicular lymphadenopathy. LUNGS: Clear to auscultation bilaterally. HEART: Regular rate and rhythm without murmur. ABDOMEN: Soft. Minimal tenderness in the epigastric region without guarding. Bowel sounds are present. EXTREMITIES: No lower extremity edema. NEURO: Cranial nerves are grossly intact. LABORATORY DATA: Sodium 131, potassium 3.5, chloride 106, CO2 18, BUN 9, creatinine 0.55, calcium was 10.9 yesterday, down to 8.4 today after rehydration. Bilirubin 0.8, AST 16, ALT 22, alkaline phosphatase 86, albumin 5.3 again, when she was on presentation, when she was very dehydrated, lipase of 5. White blood cell count was 19.2 and is down to 14.7 today, hemoglobin 11.6 down from 16.5 yesterday, platelets 365. IMPRESSION: 1. Epigastric pain with nausea and vomiting. She has been taking NSAIDs recently and has been out of her omeprazole over the last month. Rule out peptic ulcer. 2. History of chronic constipation, which sounds like it was also significantly related to prior chronic opioid use. She has a history of an anal fissure associated with that. She can restart daily MiraLAX at this point. 3. Abnormal CT scan of the abdomen showing thickening of the duodenum and the second portion of the duodenum. RECOMMENDATIONS: 1. Proton pump inhibitor. 2. EGD tomorrow. 3. Avoid NSAIDs. Job ID: [id number]
[2019-11-04] MEDS: Ondansetron PF 4 MG/2 ML Vial IVP PRN ×3 (01:32→14:20)
[2019-11-04] MEDS: Morphine 2 MG/ML SYRINGE SLOW IVP PRN ×4 (03:28→20:03)
[2019-11-04] MEDS: Sodium Chloride 0.9% 1,000 ML IV SCH ×5 (03:29→20:01)
[2019-11-04] MEDS: Famotidine/PF 20 mg/2ml Vial SLOW IVP SCH (09:02)
--- NOTE | 2019-11-04 09:41 | PDOC.HOSPP ---
- Subjective Encounter Date: 11/04/19 Encounter Time: 07:50 Subjective: Nausea.. - Objective Vital Signs & Weight: Vital Signs (12 hours) Temp Pulse Resp BP BP Pulse Ox 11/04/19 07:35 99.1 F 71 18 149/62 H 98 11/04/19 03:33 98.1 F 81 18 156/67 H 99 11/03/19 23:57 98.9 F 77 18 144/65 H 97 Weight Admit Weight 95 lb 1.6 oz Weight 95 lb 1.6 oz I&O: 11/03/19 11/04/19 11/05/19 06:59 06:59 06:59 Intake Total 2833 4160 Balance 2833 4160 Result Diagrams: 11/03/19 06:40 11/03/19 06:40 Hospitalist ROS - Medication Medications: Active Medications Generic Name Dose Route Start Last Admin Trade Name Freq PRN Reason Stop Dose Admin Al Hydroxide/Mg Hydroxide 30 ml 11/03/19 18:52 11/03/19 19:32 Maalox PO 30 ml Q6H PRN Administration Heartburn or Indigestion Enoxaparin Sodium 40 mg 11/03/19 09:00 11/03/19 08:43 Lovenox SC 40 mg 0900 SUMA Administration Famotidine 20 mg 11/03/19 21:00 11/04/19 09:02 Pepcid SLOW IVP 20 mg BID SUMA Administration Ceftriaxone Sodium 1 gm/ 100 mls @ 200 mls/hr 11/02/19 18:00 11/03/19 18:01 Sodium Chloride IVPB 100 mls Q24HR SUMA Administration Vancomycin HCl 1 gm/ Device 200 mls @ 200 mls/hr 11/02/19 21:00 11/03/19 19: 35 IVPB 200 mls Q12HR SUMA Administration Sodium Chloride 1,000 mls @ 150 mls/hr 11/02/19 17:43 11/04/19 09:03 Normal Saline 0.9% IV 1,000 mls .Q6H40M SUMA Administration Morphine Sulfate 2 mg 11/03/19 16:33 11/04/19 09:01 Morphine SLOW IVP 2 mg Q6H PRN Administration Pain Ondansetron HCl 4 mg 11/02/19 17:43 11/04/19 09:01 Zofran IVP 4 mg Q6H PRN Administration Nausea/Vomiting Sodium Chloride 10 ml 11/03/19 21:00 11/04/19 09:03 Flush - Normal Saline IVF 10 ml Q12HR SUMA Administration - Exam General Appearance: NAD Neck: no JVD Heart: RRR Respiratory: CTAB Gastrointestinal: soft Extremities: no edema (Macular area of redness in right upper tigh..) Hosp A/P (1) Duodenitis Code(s): K29.80 - DUODENITIS WITHOUT BLEEDING Status: Acute (2) Nausea & vomiting Code(s): R11.2 - NAUSEA WITH VOMITING, UNSPECIFIED Status: Acute (3) Sepsis Code(s): A41.9 - SEPSIS, UNSPECIFIED ORGANISM Status: Acute (4) Sepsis Code(s): A41.9 - SEPSIS, UNSPECIFIED ORGANISM Status: Acute - Plan BxC negative. For EGD. Right tigh redness most likely due Morphine.. Cellulitis less likely. f/u cbc & diff
[2019-11-04] MEDS ORDERED: PROPOFOL 200 MG/20 ML VIAL ONE (09:53)
[2019-11-04] MEDS: Vancomycin HCl 1 GM in Premix Bag 1 BAG IVPB SCH (10:41)
[2019-11-04 11:48] LABS: #Lymphocytes 1.7 thou/uL (1.20-3.40); #Monocytes 0.8 thou/uL (0.11-0.59); #Neutrophils 6.7 thou/uL (1.40-6.50); %Basophils 0.4 % (0.0-1.0); %Eosinophils 0.4 % (0.0-10.0); %Lymphocytes 18.2 % (21.0-51.0); %Monocytes 8.2 % (0.0-10.0); %Neutrophils 72.9 % (42.0-75.0); Hemoglobin 10.5 g/dL (12.0-16.0); Mean Corpuscular HGB CONC 35.2 g/dL (32.0-36.0); Mean Corpuscular Volume 96.6 fL (78.0-98.0); Mean Platelet Volume 6.8 fL (7.4-10.4); Platelet Count 291 thou/uL (130-400); Red Blood Cell (RBC) Count 3.09 mill/uL (4.20-5.40); White Blood Cell (WBC) Count 9.3 thou/uL (4.8-10.8)
[2019-11-04] MEDS ORDERED: Promethazine HCl 25 MG/ML VIAL IM PRN (13:27)
[2019-11-04] MEDS ORDERED: Promethazine HCl 25 MG/ML VIAL SLOW IVP PRN (13:27)
[2019-11-04] MEDS ORDERED: Ondansetron HCl/PF 4 MG/2 ML Vial IVP PRN (13:27)
[2019-11-04] MEDS ORDERED: Ketamine 50 MG/ML (10ML VIAL) ONE (13:36)
[2019-11-04] MEDS ORDERED: Pantoprazole 40 MG VIAL IVP SCH (14:00)
[2019-11-04] MEDS: cefTRIAXone\\ROCEPHIN 1 GM in Sodium Chloride 0.9% 100 ML IVPB SCH (17:01)
--- NOTE | 2019-11-04 18:03 | OP ---
DATE OF PROCEDURE: 11/04/2019 PROCEDURE PERFORMED: Esophagogastroduodenoscopy with biopsy. PREOPERATIVE DIAGNOSES: Abdominal pain, weight loss, abnormal CT scan showing thickening of the duodenum, NSAID use, and nausea with vomiting. DESCRIPTION OF PROCEDURE: Informed consent was obtained from the patient. She was sedated with total intravenous anesthesia. The bite block was placed, and the endoscope was advanced easily to the second portion of the duodenum and retroflexion was performed in the stomach. The esophagus had severe grade D circumferential erosive esophagitis throughout the lower two-thirds of the esophagus. Biopsies were obtained to rule out bile esophagitis. The stomach was normal including retroflexed views. Biopsies were obtained from the antrum of the stomach and body of the stomach to rule out H pylori. The first portion of the duodenum had multiple shallow white ulcers measuring up to 10 cm in diameter. There were at least 10 ulcers in this area. The second portion of the duodenum was normal overall. IMPRESSION: 1. Severe grade D erosive esophagitis, biopsy. 2. Normal stomach. Biopsies obtained to rule out Helicobacter pylori. 3. Numerous ulcers in the first portion of the duodenum, which were shallow and white base without stigmata of recent bleeding. Biopsies were obtained here as well. There are no stigmata of recent bleeding. The second portion of the duodenum was unremarkable. RECOMMENDATIONS: 1. Await histopathology. 2. Check a fasting gastrin level. 3. Proton pump inhibitor twice daily. 4. Advance to mechanical soft diet. 5. Avoid NSAIDs. Job ID: [id number]
[2019-11-04] MEDS: Mag-Al 1200 mg/1200 mg/30 ML UDCUP PO PRN (23:59)
[2019-11-05] MEDS: Melatonin 3 MG TAB PO PRN ×2 (01:31→23:03)
[2019-11-05] MEDS: HYDROcodone/Acetaminophen 7.5/325 mg Tablet PO PRN ×4 (01:31→23:03)
[2019-11-05] MEDS: Morphine 2 MG/ML SYRINGE SLOW IVP PRN ×4 (02:40→19:53)
[2019-11-05] MEDS: Sodium Chloride 0.9% 1,000 ML IV SCH ×3 (06:12→20:06)
[2019-11-05] MEDS: Ondansetron PF 4 MG/2 ML Vial IVP PRN ×2 (06:24→14:24)
[2019-11-05] MEDS ORDERED: Morphine 2 MG/ML SYRINGE SLOW IVP SCH (06:45)
[2019-11-05] MEDS: Enoxaparin Sodium 40 MG/0.4 ML SYRINGE SC SCH (07:48)
[2019-11-05 11:26] LABS: Anion Gap 12 mmol/L (10-20); BUN (Urea Nitrogen) 4 mg/dL (9.8-20.1); Calc. Creatinine Clearance 75 mL/min (70-130); Calcium 8.3 mg/dL (7.8-10.44); Carbon Dioxide 28 mmol/L (23-31); Chloride 97 mmol/L (98-107); Estimated GFR-MDRD Greater than 90; Glucose 115 mg/dL (80-115); Sodium 135 mmol/L (136-145)
[2019-11-05 11:32] LABS: Potassium 2.4 mmol/L (3.5-5.1)
--- NOTE | 2019-11-05 12:02 | PRG ---
DATE OF SERVICE: 11/05/2019 SUBJECTIVE: Ms. Gasca is tolerating a solid diet. She has some mild intermittent epigastric to substernal pain. OBJECTIVE: VITAL SIGNS: Temperature is 98.8, pulse 86, and blood pressure 132/80. GENERAL: She is no acute distress. Alert and oriented x3. LUNGS: Clear to auscultation bilaterally. HEART: Regular rate and rhythm without murmur. ABDOMEN: Soft, nontender, and nondistended. Bowel sounds are present. EXTREMITIES: No lower extremity edema. LABORATORY DATA: Creatinine 0.54. IMPRESSION: 1. Severe grade D erosive esophagitis. 2. Multiple ulcers in the first portion of the duodenum. RECOMMENDATIONS: 1. Proton pump inhibitor twice daily. 2. Fasting gastrin level was drawn this morning. 3. Follow up with Dr. Singleton in 2 months. She will likely require a followup upper endoscopy to verify healing and rule out Ward's regarding the severe esophagitis. 4. She should be able to discharge home today. I will sign off. Please call if GI can be of assistance. Job ID: [id number]
[2019-11-05] MEDS ORDERED: Loperamide HCl 1 MG/7.5 ML UDCUP PO PRN ×2 (12:42→19:50)
[2019-11-05] MEDS ORDERED: Potassium Chloride 20 MEQ TAB PO SCH ×2 (16:45)
[2019-11-05] MEDS ORDERED: Lorazepam 0.5 MG TAB PO PRN (18:50)
--- NOTE | 2019-11-05 18:52 | PDOC.HOSPP ---
- Subjective Encounter Date: 11/05/19 Encounter Time: 18:00 Subjective: The patient reports she has severe pain intermittently to the point where she wants to beat something. States morphine does not last six hours, would like higher frequency. She is having green diarrhea today, four times, no blood. Patient states two months ago she also had low potassium but was not vomiting or having diarrhea at that time. She says previously when she had low potassium, she was very altered and combative and wants to know what's causing it. - Objective Vital Signs & Weight: Vital Signs (12 hours) Temp Pulse Resp BP Pulse Ox 11/05/19 17:24 99.2 F 82 18 133/64 92 L 11/05/19 11:26 98.8 F 86 18 132/80 98 11/05/19 08:21 98.1 F 66 16 139/63 99 Weight Admit Weight 95 lb 1.6 oz Weight 95 lb 1.6 oz I&O: 11/04/19 11/05/19 11/06/19 06:59 06:59 06:59 Intake Total 4160 2420 Balance 4160 2420 Result Diagrams: 11/04/19 11:27 11/05/19 10:53 Hospitalist ROS - Review of Systems Constitutional: denies: fever, chills - Medication Medications: Active Medications Generic Name Dose Route Start Last Admin Trade Name Freq PRN Reason Stop Dose Admin Hydrocodone Bitart/Acetaminophen 1 tab 11/05/19 00:38 11/05/19 14:26 [place] 7.5/325 PO 1 tab Q6H PRN Administration Moderate Pain (4-6) Al Hydroxide/Mg Hydroxide 30 ml 11/03/19 18:52 11/04/19 23:59 Maalox PO 30 ml Q6H PRN Administration Heartburn or Indigestion Enoxaparin Sodium 40 mg 11/03/19 09:00 11/05/19 07:48 Lovenox SC Not Given 0900 SUMA Sodium Chloride 1,000 mls @ 150 mls/hr 11/02/19 17:43 11/05/19 14:10 Normal Saline 0.9% IV 1,000 mls .Q6H40M SUMA Administration Melatonin 3 mg 11/05/19 00:39 11/05/19 01:31 Melatonin PO 3 mg HSPRN PRN Administration Insomnia Ondansetron HCl 4 mg 11/02/19 17:43 11/05/19 14:24 Zofran IVP 4 mg Q6H PRN Administration Nausea/Vomiting Pantoprazole Sodium 40 mg 11/04/19 21:00 11/05/19 07:48 Protonix PO 40 mg BID SUMA Administration Sodium Chloride 10 ml 11/03/19 21:00 11/05/19 07:48 Flush - Normal Saline IVF Not Given Q12HR [facility] Zolpidem Tartrate 5 mg 11/02/19 17:43 11/04/19 23:59 Ambien PO 5 mg HSPRN PRN Administration Insomnia - Exam General Appearance: NAD, awake alert Eye: PERRL, anicteric sclera ENT: normocephalic atraumatic, no oropharyngeal lesions Neck: supple, symmetric, no JVD, no thyromegaly Heart: RRR, no murmur, no gallops, no rubs Respiratory: CTAB, no wheezes, no rales, no ronchi Gastrointestinal: soft, non-distended Gastrointestinal - other findings: epigastric tenderness Extremities: no cyanosis, no clubbing, no edema Skin: normal turgor, no lesions, no rashes Neurological: cranial nerve grossly intact, normal sensation to touch, no focal deficits, no new deficit Musculoskeletal: normal tone, normal strength, no muscle wasting Psychiatric: normal affect, normal behavior, A&O x 3, oriented to person Hosp A/P - Plan EGD: severe grade D esophagitis. Numerous ulcers in the first portion of the duodenum, which were shallow nad whitebase This is a 59 year old female admitted with duodenitis, still here for hypokalemia Severe hypokalemia - possibly from diarrhea - potassium 2.4. Cannot tolerate oral potsasium, will give IV potassium and recheck - stool cultures and C diff normal Ulcerative esophagtiis -continue PPI. Will add carafate for pain - needs repeat endoscopy in two months - IV morphine prn - tylenol prn Diarrhea - has elevated fecal lactoferrin - C diff, stool cultures, giardia and crypto negative - had colonoscopy this year which showed colon polyps Anxiety - ativan prn Code status: full code
[2019-11-05] MEDS ORDERED: Loperamide HCl 2 MG CAP PO PRN (18:53)
[2019-11-05] MEDS ORDERED: Potassium Chloride 40 MEQ in Sodium Chloride 0.9% 250 ML 250 ML IVPB SCH (19:00)
[2019-11-05] MEDS: Sucralfate 1 GM TAB PO SCH (19:55)
[2019-11-05] MEDS: Loperamide HCl 2 MG CAP PO PRN (20:03)
[2019-11-05] MEDS ORDERED: Sucralfate 1 GM TAB PO SCH (21:00)
[2019-11-06] MEDS: Morphine 2 MG/ML SYRINGE SLOW IVP PRN ×5 (02:09→19:27)
[2019-11-06] MEDS: Sodium Chloride 0.9% 1,000 ML IV SCH ×2 (02:09→08:11)
[2019-11-06] MEDS: Loperamide HCl 2 MG CAP PO PRN ×3 (05:42→19:27)
[2019-11-06] MEDS: HYDROcodone/Acetaminophen 7.5/325 mg Tablet PO PRN ×3 (05:43→20:56)
[2019-11-06] MEDS: Enoxaparin Sodium 40 MG/0.4 ML SYRINGE SC SCH (07:19)
[2019-11-06] MEDS: Sucralfate 1 GM TAB PO SCH ×3 (07:23→20:38)
[2019-11-06 09:09] LABS: Hemoglobin 11.1 g/dL (12.0-16.0); Mean Corpuscular HGB CONC 33.5 g/dL (32.0-36.0); Mean Corpuscular Hemoglobin 33.6 pg (27.0-31.0); Mean Platelet Volume 7.4 fL (7.4-10.4); Platelet Count 320 thou/uL (130-400); RBC Distribution Width 12.2 % (11.5-14.5); White Blood Cell (WBC) Count 9.1 thou/uL (4.8-10.8)
[2019-11-06 09:25] LABS: Anion Gap 11 mmol/L (10-20); BUN (Urea Nitrogen) 4 mg/dL (9.8-20.1); Calc. Creatinine Clearance 84 mL/min (70-130); Calcium 8.6 mg/dL (7.8-10.44); Carbon Dioxide 29 mmol/L (23-31); Chloride 98 mmol/L (98-107); Estimated GFR-MDRD Greater than 90; Glucose 97 mg/dL (80-115); Potassium 3.2 mmol/L (3.5-5.1); Sodium 135 mmol/L (136-145)
[2019-11-06] MEDS ORDERED: Potassium Chloride 20 MEQ TAB PO SCH ×2 (10:00→15:30)
[2019-11-06 14:23] LABS: Potassium 2.9 mmol/L (3.5-5.1)
--- NOTE | 2019-11-06 17:40 | PDOC.HOSPP ---
- Subjective Encounter Date: 11/06/19 Encounter Time: 17:37 Subjective: The patient complains of flushing and wants to rip all of her clothes off. She states it hurts when she swallows her saliva, may be from the potassium pills. Per nurse she had one loose stool, per patient she may have had 3- loose stools. Nonbloody. - Objective Vital Signs & Weight: Vital Signs (12 hours) Temp Pulse Resp BP Pulse Ox 11/06/19 08:00 98.3 F 67 16 168/62 H 99 Weight Admit Weight 95 lb 1.6 oz Weight 95 lb 1.6 oz I&O: 11/05/19 11/06/19 11/07/19 06:59 06:59 06:59 Intake Total 2420 2520 Balance 2420 2520 Result Diagrams: 11/06/19 08:54 11/06/19 13:37 Hospitalist ROS - Review of Systems Constitutional: reports: sweats. denies: fever - Medication Medications: Active Medications Generic Name Dose Route Start Last Admin Trade Name Freq PRN Reason Stop Dose Admin Hydrocodone Bitart/Acetaminophen 1 tab 11/05/19 00:38 11/06/19 14:16 [place] 7.5/325 PO 1 tab Q6H PRN Administration Moderate Pain (4-6) Al Hydroxide/Mg Hydroxide 30 ml 11/03/19 18:52 11/04/19 23:59 Maalox PO 30 ml Q6H PRN Administration Heartburn or Indigestion Enoxaparin Sodium 40 mg 11/03/19 09:00 11/06/19 07:19 Lovenox SC Not Given 09 [facility] Loperamide HCl 2 mg 11/05/19 20:00 11/06/19 15:33 Imodium PO 2 mg Q4H PRN Administration Diarrhea/Loose Stools Melatonin 3 mg 11/05/19 00:39 11/05/19 23:03 Melatonin PO 3 mg HSPRN PRN Administration Insomnia Morphine Sulfate 2 mg 11/05/19 18:50 11/06/19 15:34 Morphine SLOW IVP 2 mg Q4H PRN Administration Severe Pain (7-10) Ondansetron HCl 4 mg 11/02/19 17:43 11/05/19 14:24 Zofran IVP 4 mg Q6H PRN Administration Nausea/Vomiting Pantoprazole Sodium 40 mg 11/04/19 21:00 11/06/19 07:22 Protonix PO 40 mg BID SUMA Administration Sodium Chloride 10 ml 11/03/19 21:00 11/06/19 07:23 Flush - Normal Saline IVF Not Given Q12HR [facility] Sucralfate 1 gm 11/05/19 18:50 11/06/19 14:16 Carafate PO 1 gm TID SUMA Administration Zolpidem Tartrate 5 mg 11/02/19 17:43 11/04/19 23:59 Ambien PO 5 mg HSPRN PRN Administration Insomnia - Exam General Appearance: NAD, awake alert Eye: PERRL, anicteric sclera ENT: normocephalic atraumatic, no oropharyngeal lesions Neck: supple, symmetric, no JVD, no thyromegaly Heart: RRR, no murmur, no gallops, no rubs Respiratory: CTAB, no wheezes, no rales, no ronchi Gastrointestinal: soft, non-tender, non-distended Extremities: no cyanosis, no clubbing, no edema Skin: normal turgor, no lesions, no rashes Neurological: cranial nerve grossly intact, normal sensation to touch Hosp A/P - Plan EGD: severe grade D esophagitis. Numerous ulcers in the first portion of the duodenum, which were shallow nad whitebase This is a 59 year old female admitted with duodenitis, still here for hypokalemia Severe hypokalemia - possibly from diarrhea - potassium 2.4 yesterday, given replacement, dropped down to 2.9 again today. - stool cultures and C diff normal - imodium ordered prn - could be from hypomagnesemia Hypomagnesemia - mag level 1.3, will give 2 grams IV magnesium and recheck #Odynophagia #Ulcerative esophagtiis -continue PPI. Continue carafate - needs repeat endoscopy in two months - IV morphine prn - tylenol prn Diarrhea - has elevated fecal lactoferrin - C diff, stool cultures, giardia and crypto negative - sent for serum gastrin. Ordering 24 hour urine to check for carcinoid syndrome - had colonoscopy this year which showed colon polyps Anxiety - ativan prn Dispo: d/c after correction of potassium and magnesium Code status: full code
[2019-11-06 17:46] LABS: Potassium, Urine 21.3 mmol/L
[2019-11-06] MEDS ORDERED: Magnesium 2 GM/50 ML 2 GM in Premix Bag 1 BAG IVPB SCH (18:00)
[2019-11-06] MEDS: Ondansetron PF 4 MG/2 ML Vial IVP PRN (18:06)
[2019-11-06] MEDS ORDERED: Magnesium Oxide 400 MG TAB PO SCH (18:45)
[2019-11-06 22:51] LABS: Magnesium 1.5 mg/dL (1.6-2.6); Potassium 4.3 mmol/L (3.5-5.1)
[2019-11-07] MEDS: Morphine 2 MG/ML SYRINGE SLOW IVP PRN ×4 (00:01→14:35)
[2019-11-07] MEDS ORDERED: Magnesium Oxide 400 MG TAB PO SCH ×2 (01:15→10:45)
[2019-11-07] MEDS: HYDROcodone/Acetaminophen 7.5/325 mg Tablet PO PRN ×2 (02:29→08:28)
[2019-11-07 06:28] LABS: #Eosinphils 0.2 thou/uL (0.0-0.7); %Basophils 0.5 % (0.0-1.0); %Eosinophils 2.1 % (0.0-10.0); %Monocytes 10.9 % (0.0-10.0); %Neutrophils 54.5 % (42.0-75.0); Mean Corpuscular Hemoglobin 32.9 pg (27.0-31.0); Mean Corpuscular Volume 99.8 fL (78.0-98.0); Mean Platelet Volume 7.5 fL (7.4-10.4); Platelet Count 352 thou/uL (130-400); RBC Distribution Width 12.2 % (11.5-14.5); Red Blood Cell (RBC) Count 3.33 mill/uL (4.20-5.40); White Blood Cell (WBC) Count 9.2 thou/uL (4.8-10.8)
[2019-11-07 06:49] LABS: ALT (SGPT) 20 U/L (8-55); AST (SGOT) 19 U/L (5-34); Albumin 3.5 g/dL (3.4-4.8); Alkaline Phosphatase 54 U/L (40-110); Anion Gap 14 mmol/L (10-20); BUN (Urea Nitrogen) Less than 4 mg/dL (9.8-20.1); Bilirubin, Total 0.2 mg/dL (0.2-1.2); Calc. Creatinine Clearance 76 mL/min (70-130); Calcium 9.2 mg/dL (7.8-10.44); Carbon Dioxide 27 mmol/L (23-31); Chloride 97 mmol/L (98-107); Estimated GFR-MDRD Greater than 90; Globulin 2.7 g/dL (2.4-3.5); Glucose 103 mg/dL (80-115); Magnesium 1.6 mg/dL (1.6-2.6); Potassium 4.2 mmol/L (3.5-5.1); Protein, Total 6.2 g/dL (6.0-8.3); Sodium 134 mmol/L (136-145)
[2019-11-07] MEDS: Sucralfate 1 GM TAB PO SCH ×2 (08:29→14:33)
[2019-11-07] MEDS: Enoxaparin Sodium 40 MG/0.4 ML SYRINGE SC SCH (08:29)
[2019-11-07 12:12] VITALS: BP 104/62; TEMP 98.1
--- NOTE | 2019-11-07 13:44 | DIS ---
DATE OF ADMISSION: 11/02/2019 DATE OF DISCHARGE: 11/07/2019 DISCHARGE DIAGNOSES: Severe esophagitis, odynophagia, duodenal ulcer, duodenitis, hypokalemia, hypomagnesemia, diarrhea, anxiety. CONSULTATIONS: Gastroenterology with Dr. Kevin Foreman. PROCEDURES: Upper endoscopy with gastric, esophageal and duodenal biopsy. BRIEF HISTORY OF PRESENT ILLNESS: This is a 59-year-old female with a past medical history of hypertension, who presented to the emergency room with severe abdominal pain, nausea and vomiting for the past 2 days. The patient had presented to the emergency room and underwent a CT scan of her abdomen and pelvis, which showed edema in the wall of the duodenum, which may represent duodenitis. She underwent a chest x-ray, which showed no active pulmonary disease. The patient was noted to have a white blood cell count of 19.2 and a lactic acid of 2.1. She was empirically started on IV vancomycin and ceftriaxone and was admitted for further management. HOSPITAL COURSE: Severe esophagitis, duodenal ulcer: The patient underwent GI consultation and underwent an upper endoscopy on the , which showed severe grade D erosive esophagitis with numerous ulcers in the first portion of the duodenum. Biopsies of her esophagus showed active erosive esophagitis. Biopsies of her stomach showed mild reactive gastropathy with no H pylori. There was no evidence of malignancy or Ward esophagitis. Biopsy of her duodenum showed active peptic duodenitis. Of note, it mentioned that there was gastric foveolar metaplasia, which could be secondary to peptic injury, drug-induced injury, or other chemical irritants with no dysplasia or malignancy identified. The patient was started on Protonix 40 mg twice daily and due to severe pain with swallowing, she was also started on Carafate with improvement. The patient needs to follow up with Dr. Singleton in 2 months for a repeat upper endoscopy. She will need to take the Protonix and Carafate on discharge, and she was advised to avoid spicy and acidic foods, avoid NSAIDS. Vancomycin and ceftriaxone were discontinued since there was no evidence of infection. Hypokalemia: The patient had a potassium level of 2.4 on the . She underwent replacement with potassium, however, was still noted to drop her potassium to 2.9. The patient states when her potassium is low, she feels like her mental status is off and she reports cramps. She does have a history of intermittent diarrhea. She was found to have concurrent hypomagnesemia and after correction of this, her potassium normalized to 4.2 on the day of discharge. She was advised to take potassium supplements if she has diarrhea or inadequate p.o. intake. Hypomagnesemia: The patient had a magnesium level of 1.3 on the 10th. She was given 2 g of IV magnesium and her magnesium level came to 1.7 on the day of discharge. This is possibly secondary to diarrhea vs inadequate po intake. Her TSH was normal. She was discharged on magnesium supplements to take p.r.n. if she has diarrhea or inadequate intake. Chronic intermittent diarrhea: The patient reports having 3 to 4 loose green stools intermittently. Stool cultures including ova and parasites, lactoferrin, shiga toxin, Campylobacter, and C diff were negative. She had a TSH done, which was negative. A serum gastrin level was sent, which is still pending. Initial workup for 24-hour urine for carcinoid syndrome was initiated. However, given improvement in her electrolytes, this was canceled. The patient should be considered for workup of carcinoid syndrome or other secretory neuroendocrine pathology if problem persists. Possible consideration of an outpatient colonoscopy should be considered as well. Osteoporosis: The patient reports history of osteoporosis and was taking calcium and vitamin D supplements with no improvement. She reports that she was taking 120 mg of oxycodone with her prior PCP and was unhappy with the side effects of this. Therefore, she discontinued it. The patient is currently looking for a new PCP. She declined any prescriptions for tramadol or gabapentin. She denied wanting any lidocaine patches or prescription for Tylenol. The patient states she will try to find a PCP who will prescribe her pain medications if needed. Anemia: The patient has a hemoglobin of 11 with an MCV of 99. B12, folate and TSH were unremarkable. Hyponatremia: The patient had a sodium level 131 on the 7th, which improved to 135 on the day of discharge. Consideration of a repeat BMP as an outpatient can be done. Anxiety: The patient reports significant amounts of anxiety and states she was taking Xanax in the past. I declined prescription for this as an outpatient. However, she was advised to consider follow up with [facility] for further evaluation. DISCHARGE PHYSICAL EXAMINATION: VITAL SIGNS: Temperature 98.1, heart rate 77, respiratory rate 18, O2 saturation 99% on room air, blood pressure 104/62. GENERAL: The patient is alert, awake, and oriented x3. CARDIOVASCULAR SYSTEM: Regular rate and rhythm with no murmurs, rubs, or gallops. LUNGS: Clear to auscultation bilaterally. ABDOMEN: Positive bowel sounds. Soft, nontender, and nondistended. EXTREMITIES: No edema. PERTINENT LABORATORY DATA: CBC, 11/07: White blood cell count 9.2, hemoglobin 11.0, hematocrit 33.2, MCV 99.8, platelet count 252. BMP, 11/07: Sodium 134, potassium 4.2, chloride 97, bicarb 27, creatinine 0.53, magnesium 1.7. LFTs, 11/02: AST 16, ALT 22, alkaline phosphatase 88. Lipase : is 5. TSH : 0.9563. UA, 11/02: Shows 70 of protein, greater than 150 ketones, 1+ bilirubin, 2 of urobilinogen, 4 to 6 white blood cells. Urine sodium: is 170. Urine potassium: is 21.3. PERTINENT IMAGING: Chest x-ray, 11/02: Shows no acute disease. CT abdomen and pelvis, 11/02: Showed duodenitis. Upper endoscopy: Showed severe grade D esophagitis with ulcers in the duodenum. Stomach biopsy: Shows mild reactive gastropathy with no H pylori organisms. Esophageal biopsy: Shows active erosive esophagitis with no Ward esophagitis identified. Duodenal biopsy: Shows active peptic duodenitis with gastric foveolar metaplasia with no dysplasia or malignancy. DISCHARGE INSTRUCTIONS: The patient needs to follow up with her PCP in a week. She should consider a repeat BMP in a week. She should follow up with Dr. Singleton in 2 months for a repeat upper endoscopy. She should take magnesium and potassium supplements p.r.n. when she has diarrhea or low p.o. intake. AVOID NSAIDS. Job ID: [id number] MTDD
--- NOTE | 2019-11-08 10:07 | PQF ---
NEO HUNTER UMA [id number] CLINICAL DOCUMENTATION CLARIFICATION FORM: POST DISCHARGE Addendum to original discharge summary date: ____ Late entry note date: __ DATE:11/08/2019 ATTN: MATIAS BRANDON Please exercise your independent, professional judgment in responding to the clarification form. Clinical indicators are provided on the bottom of this form for your review Please check appropriate box(s) to clarify if the following diagnosis has been ruled in or ruled out:Sepsis [ ] Ruled in diagnosis [ ] Continue to treat [ ] Resolved [ X ] Ruled out diagnosis [ ] Cannot rule out diagnosis [ ] Other diagnosis [ ] Unable to determine For continuity of documentation, please document condition throughout progress notes and discharge summary. Thank You. CLINICAL INDICATORS - SIGNS / SYMPTOMS / LABS [id number] in ED on 11/02 by Bernardino Zacarias Her WBC was elevated,raising the possibility of sepsis,Lactic acid level is in progress- Documented in H&P on 11/02 by More Thao Sepsis-Documented hospitalist progress note on 11/02 by More Thao Bxc negative-Documented hospitalist progress note on 11/02 by More Thao Cellulitis less likely-Documented hospitalist progress note on 11/02 by More Thao Duodenitis-Documented hospitalist progress note on 11/02 by More Thao WBC-19.2-Documented in Laboratory RISK FACTORS Duodenitis-Documented hospitalist progress note on 11/02 by More Thao TREATMENTS Vancomycin 1 gm IV- Documented in Medication snapshot [employer] Winform Viewer (This form is maintained as a part of the permanent medical record) 2014 [employer]. All Rights Reserved Marley [email or web address] [not provided] [email or web address]
== END 2019-11-07 16:24 | disposition home health service (06) | DRG 381 ==
LOC: ERS 12:04 → T4-B 17:42 → INTOOBSV 17:42 → OBSVTOIN 11-06 15:25
PROVIDERS: ADMIT Hospitalist; ATTEND Hospitalist
PROC: 0DB98ZX Excision of Duodenum, Via Natural or Artificial Opening Endoscopic, Diagnostic (ICD-10-PCS; principal; 2019-11-04)
PROC: 0DB58ZX Excision of Esophagus, Via Natural or Artificial Opening Endoscopic, Diagnostic (ICD-10-PCS; 2019-11-04)
DX: K22.10 Ulcer of esophagus without bleeding (principal); E87.1 Hypo-osmolality and hyponatremia; K29.80 Duodenitis without bleeding; K26.9 Duodenal ulcer, unspecified as acute or chronic, without hemorrhage or perforation; K31.9 Disease of stomach and duodenum, unspecified; E87.6 Hypokalemia; E83.42 Hypomagnesemia; F41.9 Anxiety disorder, unspecified; M81.0 Age-related osteoporosis without current pathological fracture; E86.0 Dehydration
CPT/HCPCS: 36415; 71045; 74177; 80048; 80053; 80202; 81003; 81015; 82607; 82746; 82941; 83605; 83630; 83690; 83735; 84133; 84300; 84443; 85025; 85027; 87040; 87045; 87046; 87324; 87328; 87329; 87427; 87449; 88305; 88312; 88313; 93005; 93010; 96361; 96374; 96375; 96376; C9113; J0360; J0696; J1650; J2270; J2405; J2704; J3370; J3480; J3490; J7050; Q9967; S0028

== ENCOUNTER 2019-11-14 14:10 | Emergency (ER) | payer MEDICARE ==
[2019-11-14 15:45] LABS: #Basophils 0.1 thou/uL (0.0-0.2); #Eosinphils 0.2 thou/uL (0.0-0.7); #Lymphocytes 3.7 thou/uL (1.20-3.40); #Monocytes 0.8 thou/uL (0.11-0.59); #Neutrophils 7.2 thou/uL (1.40-6.50); %Basophils 0.5 % (0.0-1.0); %Eosinophils 1.5 % (0.0-10.0); %Lymphocytes 30.6 % (21.0-51.0); %Neutrophils 60.4 % (42.0-75.0); Hemoglobin 12.5 g/dL (12.0-16.0); Mean Corpuscular HGB CONC 32.7 g/dL (32.0-36.0); Mean Corpuscular Hemoglobin 33.2 pg (27.0-31.0); Mean Platelet Volume 6.2 fL (7.4-10.4); Platelet Count 536 thou/uL (130-400); RBC Distribution Width 13.1 % (11.5-14.5); Red Blood Cell (RBC) Count 3.78 mill/uL (4.20-5.40); White Blood Cell (WBC) Count 11.9 thou/uL (4.8-10.8)
[2019-11-14 16:04] LABS: ALT (SGPT) 15 U/L (8-55); AST (SGOT) 15 U/L (5-34); Albumin 4.3 g/dL (3.4-4.8); Alkaline Phosphatase 70 U/L (40-110); Anion Gap 14 mmol/L (10-20); BUN (Urea Nitrogen) 11 mg/dL (9.8-20.1); Bilirubin, Total 0.2 mg/dL (0.2-1.2); Calc. Creatinine Clearance 0 mL/min (70-130); Carbon Dioxide 23 mmol/L (23-31); Chloride 100 mmol/L (98-107); Estimated GFR-MDRD Greater than 90; Globulin 2.8 g/dL (2.4-3.5); Glucose 135 mg/dL (80-115); Lipase 24 U/L (8-78); Potassium 4.3 mmol/L (3.5-5.1); Protein, Total 7.1 g/dL (6.0-8.3); Sodium 133 mmol/L (136-145)
--- NOTE | 2019-11-14 16:18 | RAD ---
XR Chest 1 View Portable HISTORY: Nausea, vomiting, weakness COMPARISON: 09/25/2019 FINDINGS: The heart size is normal. The lungs are well expanded without focal areas of consolidation, pneumothorax or pleural effusions. IMPRESSION: No radiographic evidence of acute cardiopulmonary process.
[2019-11-14] MEDS ORDERED: Famotidine/PF 20 mg/2ml Vial ONE (17:07)
[2019-11-14] MEDS ORDERED: Lidocaine Viscous Sol 2% 15 ml UD Cup ONE (17:07)
[2019-11-14] MEDS ORDERED: Mag-Al 1200 mg/1200 mg/30 ML UDCUP ONE (17:07)
[2019-11-14] MEDS ORDERED: Ondansetron PF 4 MG/2 ML Vial ONE (17:07)
== END 2019-11-14 18:16 | disposition home or self-care (01) ==
LOC: ERS 14:10
DX: R11.0 Nausea (principal); M19.90 Unspecified osteoarthritis, unspecified site; F41.9 Anxiety disorder, unspecified
CPT/HCPCS: 36415; 71045; 80053; 83690; 84484; 85025; 93005; 94760; 96361; 96374; 96375; J2405; S0028

== ENCOUNTER 2020-06-02 13:24 | Outpatient (CLI) | payer MEDICARE ==
[2020-06-02 14:01] LABS: Estimated GFR-MDRD - POC Greater than 90
--- NOTE | 2020-06-02 14:40 | CT ---
Exam: CT angiogram of the chest HISTORY: Decreased blood pressure in the left arm. Evaluate for subclavian thrombosis. COMPARISON: 08/07/2016 TECHNIQUE: CT angiogram of the chest is performed in the axial plane. Three-dimensional reformatted i mages are submitted for interpretation FINDINGS: Mediastinum: No mass, lymphadenopathy or hematoma. HEART: Normal size. No significant pericardial fluid. Upper solid abdominal viscera: Hypoattenuation liver suggesting hepatic steatosis. Trachea and central bronchi: Patent Pleural spaces: No effusion Lung parenchyma: Right lung: Interval enlargement of a lucent focus in the right upper lobe with septation, currently measuring 1.6 x 1.7 cm. Minimal groundglass opacities, scarring and atelectasis in the right lower lobe. Small blebs in the right lower lobe. Left lung: Stable blebs in the medial aspect of the left lower lobe. Stable groundglass opacities in the dependent portion of the left lower lobe. Pneumothorax: None Osseous structures: No lytic or blastic lesions Pulmonary arteries:Adequate contrast opacification the pulmonary arterial system to the level of the lobar arteries. No filling defect to suggest thromboembolism. Great vessels of the neck and aorta: There is atherosclerosis involving the aortic valve, aortic arch and descending thoracic aorta. The right innominate artery has appropriate enhancement and luminal diameter. The visualized right carotid artery and subclavian artery of appropriate enhancement and gay randa diameter. The visualized left carotid artery has appropriate enhancement and luminal diameter. The left subclavian artery demonstrates atherosclerosis and short segment moderate to sever e stenosis involving the proximal left subclavian artery just beyond its origin. Contrast does pass beyond this region of narrowing. The origin of the left vertebral artery is beyond the area of narrow ing. The remainder the visualized left subclavian artery is appropriate enhancement and luminal diameter. IMPRESSION: 1. Short segment moderate to severe stenosis involving the proximal left subclavian artery. Contrast does opacify the remainder left subclavian artery. It is uncertain if contrast opacification is due to retrograde flow from a steal phenomenon via the left vertebral artery. Conventional angiography ve rsus MR angiography with and without contrast may be beneficial. 2. Emphysematous changes lung parenchyma as detailed above.
== END 2020-06-02 13:25 | disposition home or self-care (01) ==
LOC: BICCT 13:24
PROVIDERS: ATTEND Internal Medicine
DX: I74.8 Embolism and thrombosis of other arteries (principal); I77.1 Stricture of artery
CPT/HCPCS: 71275; 82565

== ENCOUNTER 2020-09-16 10:37 | Outpatient (CLI) | payer MEDICARE ==
--- NOTE | 2020-09-16 11:22 | ULT ---
Hepatic Doppler ultrasound: 09/16/2020 COMPARISON: None HISTORY: Chronic hepatitis C TECHNIQUE: Multiplanar grayscale sonographic imaging of the abdomen. Hepatic and splenic vascular ass essed with Doppler interrogation including color flow and spectral analysis FINDINGS: Imaged IVC and aorta grossly unremarkable. Imaged pancreas within normal limits. No focal liver lesion. No intrahepatic biliary dilatation. Common bile duct measures 3 mm, within nor mal limits. Hepatic veins, intrahepatic portal vein and main portal vein, and hepatic artery is patent with appro priate waveforms. The gallbladder sonographically normal. The spleen is unremarkable, measuring up to approximately 7.5 cm. Splenic artery and vein are patent and demonstrate appropriate arterial and venous waveforms. IMPRESSION: Patent hepatic and splenic vasculature.
== END 2020-09-16 10:38 | disposition home or self-care (01) ==
LOC: BICULT 10:37
PROVIDERS: ATTEND Physician Assistant Medical
DX: B18.2 Chronic viral hepatitis C (principal)
CPT/HCPCS: 76705

== ENCOUNTER 2021-07-09 17:52 | Inpatient (IN) | payer MEDICARE ==
[2021-07-09] MEDS ORDERED: Ondansetron ODT 4 MG TAB ONE (18:31)
[2021-07-09] MEDS ORDERED: Morphine 4 MG/ML VIAL ONE (18:31)
[2021-07-09] MEDS ORDERED: traMADol HCl 50 MG TAB ONE (20:14)
[2021-07-09] MEDS ORDERED: Acetaminophen 500 MG TAB ONE (20:23)
[2021-07-09] MEDS ORDERED: Ondansetron PF 4 MG/2 ML Vial IVP PRN (20:25)
[2021-07-09] MEDS ORDERED: hydrALAZINE 20 MG/ML VIAL SLOW IVP PRN (20:25)
[2021-07-09] MEDS ORDERED: Promethazine HCl 25 MG/ML VIAL IM PRN (20:25)
[2021-07-09] MEDS ORDERED: HYDROcodone/Acetaminophen 5/325 mg Tablet ONE (20:26)
[2021-07-09] MEDS ORDERED: Ibuprofen 200 MG TAB PO PRN (20:30)
[2021-07-09] MEDS ORDERED: Cyclobenzaprine 10 MG TAB PO PRN (20:30)
[2021-07-09 20:49] LABS: #Basophils 0.1 thou/uL (0.0-0.2); #Eosinphils 0.1 thou/uL (0.0-0.7); #Lymphocytes 3.2 thou/uL (1.20-3.40); #Monocytes 1.2 thou/uL (0.11-0.59); #Neutrophils 11.4 thou/uL (1.40-6.50); %Basophils 0.5 % (0.0-1.0); %Eosinophils 0.9 % (0.0-10.0); %Lymphocytes 19.8 % (21.0-51.0); %Monocytes 7.3 % (0.0-10.0); %Neutrophils 71.5 % (42.0-75.0); Hemoglobin 14.8 g/dL (12.0-16.0); Mean Corpuscular HGB CONC 35.2 g/dL (32.0-36.0); Mean Corpuscular Hemoglobin 35.7 pg (27.0-31.0); Platelet Count 268 thou/uL (130-400); RBC Distribution Width 11.7 % (11.5-14.5); Red Blood Cell (RBC) Count 4.14 mill/uL (4.20-5.40)
[2021-07-09 21:08] LABS: ALT (SGPT) 67 U/L (8-55); AST (SGOT) 56 U/L (5-34); Albumin 4.5 g/dL (3.4-4.8); Alkaline Phosphatase 111 U/L (40-110); Anion Gap 13 mmol/L (10-20); BUN (Urea Nitrogen) 10 mg/dL (9.8-20.1); Bilirubin, Direct 0.1 mg/dL (0.1-0.3); Bilirubin, Total 0.4 mg/dL (0.2-1.2); Calc. Creatinine Clearance 0 mL/min (70-130); Calcium 9.5 mg/dL (7.8-10.44); Carbon Dioxide 26 mmol/L (23-31); Chloride 103 mmol/L (98-107); Glucose 113 mg/dL (80-115); Phosphorus 5.2 mg/dL (2.3-4.7); Potassium 4.6 mmol/L (3.5-5.1); Protein, Total 7.9 g/dL (5.8-8.1); Sodium 137 mmol/L (136-145)
[2021-07-09 22:13] VITALS: BMI 29.7
[2021-07-09] MEDS: Morphine 2 MG/ML VIAL SLOW IVP PRN (22:52)
[2021-07-09] MEDS: Famotidine/PF 20 mg/2ml Vial SLOW IVP SCH (22:57)
[2021-07-09] MEDS: Senokot S 8.6-50 MG TAB PO SCH (22:57)
[2021-07-09] MEDS: Gabapentin 300 MG CAP PO SCH (22:59)
[2021-07-09] MEDS: Lactated Ringer's 1,000 ML IV SCH (23:10)
[2021-07-09] MEDS ORDERED: Nicotine 7 MG PATCH TOP SCH (23:45)
[2021-07-10] MEDS: Gabapentin 300 MG CAP PO SCH ×3 (00:15→15:22)
[2021-07-10] MEDS: Acetaminophen/Codeine 30-300mg Tablet PO SCH ×5 (00:15→23:36)
[2021-07-10] MEDS: Acetaminophen 325 MG TAB PO SCH ×6 (00:19→23:36)
[2021-07-10] MEDS: Nicotine 7 MG PATCH TOP SCH (00:24)
[2021-07-10] MEDS: Morphine 2 MG/ML VIAL SLOW IVP PRN ×4 (03:03→17:35)
[2021-07-10 04:41] LABS: #Basophils 0.1 thou/uL (0.0-0.2); #Eosinphils 0.2 thou/uL (0.0-0.7); #Lymphocytes 2.6 thou/uL (1.20-3.40); #Monocytes 0.9 thou/uL (0.11-0.59); #Neutrophils 6.8 thou/uL (1.40-6.50); %Basophils 0.8 % (0.0-1.0); %Eosinophils 1.8 % (0.0-10.0); %Lymphocytes 24.8 % (21.0-51.0); %Monocytes 8.2 % (0.0-10.0); %Neutrophils 64.4 % (42.0-75.0); Hemoglobin 12.7 g/dL (12.0-16.0); Mean Corpuscular HGB CONC 34.1 g/dL (32.0-36.0); Mean Corpuscular Hemoglobin 34.9 pg (27.0-31.0); Mean Platelet Volume 8.2 fL (7.4-10.4); Platelet Count 228 thou/uL (130-400); RBC Distribution Width 11.7 % (11.5-14.5); Red Blood Cell (RBC) Count 3.64 mill/uL (4.20-5.40); White Blood Cell (WBC) Count 10.6 thou/uL (4.8-10.8)
[2021-07-10 04:56] LABS: PTT 26.9 sec (22.9-36.1)
[2021-07-10 05:00] LABS: Anion Gap 10 mmol/L (10-20); BUN (Urea Nitrogen) 10 mg/dL (9.8-20.1); Calc. Creatinine Clearance 113 mL/min (70-130); Calcium 8.7 mg/dL (7.8-10.44); Carbon Dioxide 28 mmol/L (23-31); Chloride 106 mmol/L (98-107); Glucose 110 mg/dL (80-115); Potassium 3.9 mmol/L (3.5-5.1); Sodium 140 mmol/L (136-145)
[2021-07-10] MEDS: Lactated Ringer's 1,000 ML IV SCH ×2 (05:36→14:33)
[2021-07-10 06:22] LABS: SARS-CoV-2 NAA Rapid Test Not Detected (NotDetected)
[2021-07-10] MEDS: Polyethylene Glycol 3350 17 GM Packet PO SCH (07:58)
[2021-07-10] MEDS: Senokot S 8.6-50 MG TAB PO SCH ×2 (07:58→20:43)
[2021-07-10] MEDS: Famotidine/PF 20 mg/2ml Vial SLOW IVP SCH ×2 (07:58→20:43)
[2021-07-10] MEDS ORDERED: CEFAZOLIN 2 GM in Premix Bag 1 BAG IVPB SCH (08:00)
[2021-07-10] MEDS ORDERED: Fentanyl 100 MCG/2 ML VIAL ONE ×5 (08:23→11:17)
[2021-07-10] MEDS ORDERED: Nicotine 7 MG PATCH TOP SCH (09:00)
[2021-07-10] MEDS ORDERED: Lidocaine 2% Jelly 5 ML TUBE ONE (09:00)
[2021-07-10] MEDS ORDERED: Ampicillin 2 GM VIAL ONE (09:16)
[2021-07-10] MEDS ORDERED: PROPOFOL 200 MG/20 ML VIAL ONE (09:28)
[2021-07-10] MEDS ORDERED: ePHEDrine 50 MG/ML VIAL ONE (09:28)
[2021-07-10] MEDS ORDERED: Lidocaine 1% PF 5 ML VIAL ONE (09:28)
[2021-07-10] MEDS ORDERED: Rocuronium Bromide 10 MG/ML (10ML VIAL) ONE (09:28)
[2021-07-10] MEDS ORDERED: Dexamethasone 20 MG/5 ML VIAL ONE (09:28)
[2021-07-10] MEDS ORDERED: Ondansetron PF 4 MG/2 ML Vial ONE (09:28)
[2021-07-10] MEDS ORDERED: Promethazine HCl 25 MG/ML VIAL IVPB PRN (10:09)
[2021-07-10] MEDS ORDERED: Promethazine HCl 25 MG/ML VIAL IM PRN (10:09)
[2021-07-10] MEDS ORDERED: Ondansetron HCl/PF 4 MG/2 ML Vial IVP PRN (10:09)
[2021-07-10] MEDS ORDERED: Promethazine HCl 25 MG/ML VIAL ONE (10:47)
[2021-07-10] MEDS ORDERED: Labetalol HCl 100 MG/20 ML VIAL ONE (10:48)
[2021-07-10] MEDS ORDERED: Albuterol Sulfate 1.25 MG/3 ML NEB NEB PRN (15:24)
[2021-07-10] MEDS: CEFAZOLIN 2 GM in Premix Bag 1 BAG IVPB SCH (17:27)
[2021-07-10] MEDS: Lorazepam 1 MG TAB PO PRN (19:01)
[2021-07-10] MEDS: HYDROcodone/Acetaminophen 10/325 mg Tablet PO PRN (20:42)
[2021-07-10] MEDS: Pregabalin 75 MG CAP PO SCH (20:45)
[2021-07-11] MEDS: Nicotine 7 MG PATCH TOP SCH (01:59)
[2021-07-11] MEDS: CEFAZOLIN 2 GM in Premix Bag 1 BAG IVPB SCH (01:59)
[2021-07-11] MEDS: Acetaminophen/Codeine 30-300mg Tablet PO SCH ×4 (02:06→17:45)
[2021-07-11] MEDS: Morphine 2 MG/ML VIAL SLOW IVP PRN (06:05)
[2021-07-11] MEDS: Acetaminophen 325 MG TAB PO SCH ×3 (06:08→17:46)
[2021-07-11] MEDS: Famotidine/PF 20 mg/2ml Vial SLOW IVP SCH ×2 (07:49→19:42)
[2021-07-11] MEDS: Pregabalin 75 MG CAP PO SCH ×2 (07:49→19:42)
[2021-07-11] MEDS: Senokot S 8.6-50 MG TAB PO SCH ×2 (07:50→19:45)
[2021-07-11] MEDS: Polyethylene Glycol 3350 17 GM Packet PO SCH ×2 (07:50→08:02)
[2021-07-11] MEDS: DULoxetine 30 MG CAP PO SCH (07:50)
[2021-07-11] MEDS: HYDROcodone/Acetaminophen 10/325 mg Tablet PO PRN ×2 (07:55→14:17)
[2021-07-11] MEDS ORDERED: Albuterol 200 PUFF (6.7GM INHALER) ONE (08:00)
[2021-07-11] MEDS ORDERED: Albuterol 200 PUFF (6.7GM INHALER) INH PRN (10:45)
[2021-07-11] MEDS: Lorazepam 1 MG TAB PO PRN ×2 (14:42→19:42)
[2021-07-11] MEDS ORDERED: Enoxaparin Sodium 40 MG/0.4 ML SYRINGE SC SCH (21:00)
[2021-07-12] MEDS: Acetaminophen 325 MG TAB PO SCH ×2 (00:05→05:22)
[2021-07-12] MEDS: Acetaminophen/Codeine 30-300mg Tablet PO SCH ×2 (00:05→05:21)
[2021-07-12] MEDS: Nicotine 7 MG PATCH TOP SCH (01:08)
[2021-07-12] MEDS: HYDROcodone/Acetaminophen 10/325 mg Tablet PO PRN ×2 (01:08→12:20)
[2021-07-12] MEDS: Famotidine/PF 20 mg/2ml Vial SLOW IVP SCH (08:58)
[2021-07-12] MEDS: DULoxetine 30 MG CAP PO SCH (08:58)
[2021-07-12] MEDS: Pregabalin 75 MG CAP PO SCH (08:59)
[2021-07-12] MEDS: Senokot S 8.6-50 MG TAB PO SCH (09:00)
[2021-07-12] MEDS: Polyethylene Glycol 3350 17 GM Packet PO SCH (09:00)
[2021-07-12] MEDS: Morphine 2 MG/ML VIAL SLOW IVP PRN (09:03)
[2021-07-12] MEDS: Lorazepam 1 MG TAB PO PRN (09:03)
[2021-07-12 12:03] VITALS: BP 145/65; TEMP 98.4
== END 2021-07-12 14:39 | disposition home or self-care (01) | DRG 482 ==
LOC: ERS 17:52 → SURG A 20:25
PROVIDERS: ADMIT Surgery; ATTEND Surgery
PROC: 0QS734Z Reposition Left Upper Femur with Internal Fixation Device, Percutaneous Approach (ICD-10-PCS; principal; 2021-07-10)
DX: S72.012A Unspecified intracapsular fracture of left femur, initial encounter for closed fracture (principal); M19.90 Unspecified osteoarthritis, unspecified site; M81.0 Age-related osteoporosis without current pathological fracture; F17.210 Nicotine dependence, cigarettes, uncomplicated; J44.9 Chronic obstructive pulmonary disease, unspecified; F41.9 Anxiety disorder, unspecified; W19.XXXA Unspecified fall, initial encounter; Z85.22 Personal history of malignant neoplasm of nasal cavities, middle ear, and accessory sinuses; Z88.1 Allergy status to other antibiotic agents; Y92.007 Garden or yard of unspecified non-institutional (private) residence as the place of occurrence of the external cause; Z88.8 Allergy status to other drugs, medicaments and biological substances; Z79.82 Long term (current) use of aspirin; Z79.899 Other long term (current) drug therapy
CPT/HCPCS: 36415; 72170; 76000; 80048; 80076; 82180; 82306; 83735; 84100; 85025; 85610; 85730; 86850; 86900; 86901; 94640; 96372; C1713; C1769; G0390; J0290; J0690; J1100; J2270; J2405; J2550; J2704; J3010; J3490; J7620; Q0162; S0028; U0002; U0005

== ENCOUNTER 2021-12-15 21:30 | Inpatient (IN) | payer MEDICARE ==
[2021-12-15 22:05] LABS: #Basophils 0.1 thou/uL (0.0-0.2); #Eosinphils 0.2 thou/uL (0.0-0.7); #Lymphocytes 3.2 thou/uL (1.20-3.40); #Monocytes 0.9 thou/uL (0.11-0.59); %Basophils 1.2 % (0.0-1.0); %Monocytes 10.3 % (0.0-10.0); %Neutrophils 47.5 % (42.0-75.0); Hemoglobin 13.9 g/dL (12.0-16.0); Mean Corpuscular HGB CONC 32.8 g/dL (32.0-36.0); Platelet Count 386 thou/uL (130-400); RBC Distribution Width 12.3 % (11.5-14.5); Red Blood Cell (RBC) Count 4.09 mill/uL (4.20-5.40); White Blood Cell (WBC) Count 8.4 thou/uL (4.8-10.8)
[2021-12-15 22:28] LABS: ALT (SGPT) 26 U/L (8-55); AST (SGOT) 29 U/L (5-34); Albumin 4.3 g/dL (3.4-4.8); Alkaline Phosphatase 113 U/L (40-110); Anion Gap 17 mmol/L (10-20); BUN (Urea Nitrogen) 9 mg/dL (9.8-20.1); Bilirubin, Total 0.6 mg/dL (0.2-1.2); Calc. Creatinine Clearance 0 mL/min (70-130); Carbon Dioxide 21 mmol/L (23-31); Chloride 103 mmol/L (98-107); Globulin 2.8 g/dL (2.4-3.5); Glucose 110 mg/dL (80-115); Potassium 3.6 mmol/L (3.5-5.1); Protein, Total 7.1 g/dL (5.8-8.1); Sodium 137 mmol/L (136-145)
[2021-12-15] MEDS ORDERED: Morphine 4 MG/ML VIAL ONE (23:17)
[2021-12-16] MEDS ORDERED: Albuterol 200 PUFF (6.7GM INHALER) ONE (01:13)
[2021-12-16] MEDS ORDERED: hydrOXYzine 25 MG TAB ONE (02:28)
[2021-12-16] MEDS ORDERED: hydrOXYzine Pamoate 25 mg Capsule ONE (02:28)
[2021-12-16 06:15] VITALS: BMI 20.4
[2021-12-16] MEDS ORDERED: Ondansetron PF 4 MG/2 ML Vial IVP PRN (07:35)
[2021-12-16] MEDS ORDERED: Guaifenesin DM 100-10/5 ML UDCUP PO PRN (07:35)
[2021-12-16] MEDS ORDERED: Ondansetron ODT 4 MG TAB PO PRN (07:35)
[2021-12-16] MEDS ORDERED: Senokot S 8.6-50 MG TAB PO PRN (07:35)
[2021-12-16] MEDS ORDERED: Bisacodyl 5 MG TAB PO PRN (07:35)
[2021-12-16] MEDS ORDERED: Acetaminophen 325 MG TAB PO PRN (07:35)
[2021-12-16] MEDS ORDERED: Cyclobenzaprine 10 MG TAB PO PRN (07:38)
[2021-12-16] MEDS ORDERED: Albuterol 200 PUFF (6.7GM INHALER) INH PRN (07:46)
[2021-12-16] MEDS ORDERED: ceFAZolin 2 GM/Dextrose 50 ML 2 GM in Premix Bag 1 BAG IVPB SCH (08:15)
[2021-12-16] MEDS ORDERED: Fentanyl 100 MCG/2 ML VIAL ONE ×3 (08:31→10:33)
[2021-12-16] MEDS ORDERED: Midazolam HCl 2 mg/2 ml Vial ONE (08:31)
[2021-12-16] MEDS: Morphine 4 MG/ML VIAL SLOW IVP PRN ×3 (08:36→16:12)
[2021-12-16] MEDS ORDERED: DULoxetine 30 MG CAP PO SCH (09:00)
[2021-12-16] MEDS ORDERED: ceFAZolin 2 GM/Dextrose 50 ML IVPB ONE (09:08)
[2021-12-16] MEDS ORDERED: Ondansetron PF 4 MG/2 ML Vial ONE (09:14)
[2021-12-16] MEDS ORDERED: Lidocaine 1% PF 5 ML VIAL ONE (09:14)
[2021-12-16] MEDS ORDERED: Dexamethasone 20 MG/5 ML VIAL ONE (09:14)
[2021-12-16] MEDS ORDERED: PROPOFOL 200 MG/20 ML VIAL ONE (09:14)
[2021-12-16] MEDS ORDERED: Ondansetron HCl/PF 4 MG/2 ML Vial IVP PRN (10:19)
[2021-12-16] MEDS ORDERED: Promethazine HCl 25 MG/ML VIAL IM PRN (10:19)
[2021-12-16] MEDS ORDERED: Promethazine HCl 25 MG/ML VIAL IVPB PRN (10:19)
[2021-12-16] MEDS ORDERED: hydrALAZINE 20 MG/ML VIAL ONE (10:47)
[2021-12-16] MEDS: Pregabalin 75 MG CAP PO SCH ×2 (11:36→20:15)
[2021-12-16] MEDS: DULoxetine 30 MG CAP PO SCH (11:37)
[2021-12-16] MEDS: Aspirin 81 mg Enteric Coated Tablet PO SCH ×2 (11:37→20:14)
[2021-12-16] MEDS: Sucralfate 1 GM TAB PO SCH ×2 (11:37→18:02)
[2021-12-16] MEDS: Polyethylene Glycol 3350 17 GM Packet PO SCH (11:37)
[2021-12-16 12:31] LABS: SARS-CoV-2 PCR by NAA Not Detected (NotDetected)
[2021-12-16] MEDS: ceFAZolin 2 GM/Dextrose 50 ML 2 GM in Premix Bag 1 BAG IVPB SCH (18:01)
[2021-12-16] MEDS: HYDROcodone/Acetaminophen 7.5/325 mg Tablet PO PRN (18:18)
[2021-12-16] MEDS: Lorazepam 1 MG TAB PO PRN (20:14)
[2021-12-17] MEDS: Morphine 4 MG/ML VIAL SLOW IVP PRN (02:02)
[2021-12-17] MEDS: ceFAZolin 2 GM/Dextrose 50 ML 2 GM in Premix Bag 1 BAG IVPB SCH (02:05)
[2021-12-17] MEDS: HYDROcodone/Acetaminophen 7.5/325 mg Tablet PO PRN (05:12)
[2021-12-17 05:52] LABS: #Lymphocytes 2.5 thou/uL (1.20-3.40); #Monocytes 1.4 thou/uL (0.11-0.59); %Basophils 0.2 % (0.0-1.0); %Eosinophils 0.3 % (0.0-10.0); %Lymphocytes 17.8 % (21.0-51.0); %Monocytes 9.9 % (0.0-10.0); %Neutrophils 71.8 % (42.0-75.0); Hemoglobin 12.5 g/dL (12.0-16.0); Mean Corpuscular HGB CONC 32.7 g/dL (32.0-36.0); Mean Corpuscular Hemoglobin 34.8 pg (27.0-31.0); Mean Platelet Volume 7.4 fL (7.4-10.4); Platelet Count 366 thou/uL (130-400); RBC Distribution Width 12.1 % (11.5-14.5); White Blood Cell (WBC) Count 13.9 thou/uL (4.8-10.8)
[2021-12-17 05:55] LABS: Anion Gap 18 mmol/L (10-20); BUN (Urea Nitrogen) 10 mg/dL (9.8-20.1); Calc. Creatinine Clearance 79 mL/min (70-130); Calcium 9.5 mg/dL (7.8-10.44); Carbon Dioxide 21 mmol/L (23-31); Chloride 103 mmol/L (98-107); Glucose 111 mg/dL (80-115); Potassium 4.4 mmol/L (3.5-5.1); Sodium 138 mmol/L (136-145)
[2021-12-17] MEDS: Sucralfate 1 GM TAB PO SCH (06:32)
[2021-12-17 08:12] LABS: Band 11 % (5-11); Lymphocytes 16 % (21-51); MDiff Complete? YES; Monocytes 6 % (0-10); Neutrophil 66 % (42-75); Platelet Morphology Comment Appears Adequate; RBC Morphology Normal; Reactive Lymphocytes 1 % (0-10)
[2021-12-17] MEDS: Pregabalin 75 MG CAP PO SCH (09:25)
[2021-12-17] MEDS: Aspirin 81 mg Enteric Coated Tablet PO SCH (09:25)
[2021-12-17] MEDS: DULoxetine 30 MG CAP PO SCH (09:25)
[2021-12-17] MEDS: Polyethylene Glycol 3350 17 GM Packet PO SCH (09:27)
[2021-12-17] MEDS ORDERED: HYDROcodone/Acetaminophen 7.5/325 mg Tablet PO PRN (09:44)
[2021-12-17] MEDS: Lorazepam 1 MG TAB PO PRN (10:05)
[2021-12-17] MEDS ORDERED: HYDROcodone/Acetaminophen 7.5/325 mg Tablet PO SCH (10:15)
[2021-12-17 10:16] VITALS: BP 91/61; TEMP 98.3
== END 2021-12-17 11:06 | disposition home or self-care (01) | DRG 482 ==
LOC: ERS 21:30 → SURG A 12-16 02:04
PROVIDERS: ADMIT Student in an Organized Health Care Education/Training Program; ATTEND Nurse Practitioner Family
PROC: 0SPB04Z Removal of Internal Fixation Device from Left Hip Joint, Open Approach (ICD-10-PCS; principal; 2021-12-16)
DX: T84.091A Other mechanical complication of internal left hip prosthesis, initial encounter (principal); Z20.822 Contact with and (suspected) exposure to COVID-19; Y83.8 Other surgical procedures as the cause of abnormal reaction of the patient, or of later complication, without mention of misadventure at the time of the procedure; J44.9 Chronic obstructive pulmonary disease, unspecified; M81.0 Age-related osteoporosis without current pathological fracture; F41.9 Anxiety disorder, unspecified; Z96.642 Presence of left artificial hip joint; M19.90 Unspecified osteoarthritis, unspecified site; Z88.1 Allergy status to other antibiotic agents; Z88.6 Allergy status to analgesic agent; Z79.51 Long term (current) use of inhaled steroids; Z79.82 Long term (current) use of aspirin
CPT/HCPCS: 36415; 76000; 80048; 80053; 85025; 85652; 86140; 93005; J0360; J0690; J1100; J2250; J2270; J2405; J2704; J3010; Q0177; U0003; U0005

== ENCOUNTER 2022-05-16 08:34 | Emergency (ER) | payer MEDICARE ==
[2022-05-16] MEDS ORDERED: Ondansetron PF 4 MG/2 ML Vial ONE (09:14)
[2022-05-16] MEDS ORDERED: Morphine 4 MG/ML VIAL ONE (09:14)
[2022-05-16 09:25] LABS: #Basophils 0.1 thou/uL (0.0-0.2); #Eosinphils 0.1 thou/uL (0.0-0.7); #Lymphocytes 2.1 thou/uL (1.20-3.40); #Monocytes 0.7 thou/uL (0.11-0.59); #Neutrophils 7.7 thou/uL (1.40-6.50); %Basophils 0.7 % (0.0-1.0); %Eosinophils 0.8 % (0.0-10.0); %Lymphocytes 19.6 % (21.0-51.0); %Monocytes 6.9 % (0.0-10.0); Hemoglobin 16.1 g/dL (12.0-16.0); Mean Corpuscular HGB CONC 33.2 g/dL (32.0-36.0); Mean Corpuscular Hemoglobin 34.8 pg (27.0-31.0); Mean Platelet Volume 8.2 fL (7.4-10.4); Platelet Count 295 thou/uL (130-400); RBC Distribution Width 11.8 % (11.5-14.5); Red Blood Cell (RBC) Count 4.62 mill/uL (4.20-5.40); White Blood Cell (WBC) Count 10.7 thou/uL (4.8-10.8)
[2022-05-16 09:43] LABS: ALT (SGPT) 90 U/L (8-55); AST (SGOT) 81 U/L (5-34); Albumin 4.5 g/dL (3.4-4.8); Alkaline Phosphatase 160 U/L (40-110); Anion Gap 17 mmol/L (10-20); BUN (Urea Nitrogen) 12 mg/dL (9.8-20.1); Bilirubin, Total 0.6 mg/dL (0.2-1.2); Calc. Creatinine Clearance 0 mL/min (70-130); Calcium 9.1 mg/dL (7.8-10.44); Carbon Dioxide 23 mmol/L (23-31); Chloride 102 mmol/L (98-107); Globulin 3.3 g/dL (2.4-3.5); Glucose 107 mg/dL (80-115); Potassium 4.9 mmol/L (3.5-5.1); Protein, Total 7.8 g/dL (5.8-8.1); Sodium 137 mmol/L (136-145)
[2022-05-16 09:51] LABS: MDiff Complete? YES; Macrocytosis SLIGHT = 6-15 cells (100X) (0-5/hpf); Platelet Morphology Comment Appears Adequate
[2022-05-16 12:33] LABS: Troponin I Less than 0.010 ng/mL (< 0.028)
== END 2022-05-16 12:53 | disposition home or self-care (01) ==
LOC: ERS 08:34
DX: R11.2 Nausea with vomiting, unspecified (principal); R19.7 Diarrhea, unspecified; R07.89 Other chest pain; M81.0 Age-related osteoporosis without current pathological fracture; M19.90 Unspecified osteoarthritis, unspecified site; Z85.828 Personal history of other malignant neoplasm of skin; Z79.899 Other long term (current) drug therapy
CPT/HCPCS: 36415; 71045; 76705; 80053; 84484; 85025; 85379; 93005; 96374; 96375; J2270; J2405

== ENCOUNTER 2022-06-22 19:21 | Inpatient (IN) | payer MEDICARE ==
[2022-06-22 21:11] LABS: #Basophils 0.1 thou/uL (0.0-0.2); #Lymphocytes 1.5 thou/uL (1.20-3.40); #Neutrophils 10.5 thou/uL (1.40-6.50); %Basophils 0.4 % (0.0-1.0); %Eosinophils 0.2 % (0.0-10.0); %Lymphocytes 10.4 % (21.0-51.0); %Monocytes 14.4 % (0.0-10.0); %Neutrophils 74.6 % (42.0-75.0); Mean Corpuscular HGB CONC 34.1 g/dL (32.0-36.0); Mean Corpuscular Hemoglobin 33.7 pg (27.0-31.0); Mean Corpuscular Volume 98.8 fL (78.0-98.0); Mean Platelet Volume 8.4 fL (7.4-10.4); Platelet Count 389 thou/uL (130-400); RBC Distribution Width 11.8 % (11.5-14.5); Red Blood Cell (RBC) Count 4.75 mill/uL (4.20-5.40)
[2022-06-22 21:24] LABS: Albumin 4.6 g/dL (3.4-4.8)
[2022-06-22 21:26] LABS: Calcium 10.2 mg/dL (7.8-10.44); Chloride 89 mmol/L (98-107); Potassium 4.6 mmol/L (3.5-5.1); Sodium 126 mmol/L (136-145)
[2022-06-22 21:27] LABS: Globulin 3.4 g/dL (2.4-3.5); Glucose 105 mg/dL (80-115)
[2022-06-22 21:28] LABS: Anion Gap 27 mmol/L (10-20); Carbon Dioxide 15 mmol/L (23-31)
[2022-06-22 21:30] LABS: Alkaline Phosphatase 124 U/L (40-110); Calc. Creatinine Clearance 0 mL/min (70-130); Estimated GFR 43
[2022-06-22 21:31] LABS: Acetaminophen Less than 10.0 mcg/mL (10.0-30.0); Alcohol Less than 10 mg/dL (Less than 10); BUN (Urea Nitrogen) 59 mg/dL (9.8-20.1); CK (CPK) 402 U/L (29-168); Salicylate Less than 8.0 mg/dL (15.0-30.0)
[2022-06-22 21:32] LABS: AST (SGOT) 39 U/L (5-34)
[2022-06-22 21:33] LABS: ALT (SGPT) 43 U/L (8-55); Lipase 45 U/L (8-78)
[2022-06-23 01:48] VITALS: BMI 18.8
[2022-06-23] MEDS: Sodium Chloride 0.9% 1,000 ML IV SCH ×4 (01:56→16:04)
[2022-06-23] MEDS ORDERED: HYDROcodone/Acetaminophen 5/325 mg Tablet PO SCH ×2 (02:00→06:30)
[2022-06-23] MEDS ORDERED: HYDROcodone/Acetaminophen 5/325 mg Tablet ONE ×2 (02:14→06:40)
[2022-06-23 02:31] LABS: Amphetamine Not Detected (NotDetected); Barbiturates Screen Not Detected (NotDetected); Benzodiazepine Screen Detected (NotDetected); Cocaine Metabolite Screen Not Detected (NotDetected); Methadone Not Detected (NotDetected); Methamphetamine Not Detected (NotDetected); Opiate Screen Not Detected (NotDetected); Oxycodone Screen Not Detected (NotDetected); Phencyclidine (PCP) Not Detected (NotDetected); THC/Cannabinoid Screen Not Detected (NotDetected); Tricyclic Screen Not Detected (NotDetected)
[2022-06-23 02:32] LABS: Bilirubin Negative (Negative); Blood, Urine Trace (Negative); Clarity Turbid (Clear); Glucose, Urine (Dipstick) Normal (Negative); Ketone, Urine 10 mg/dL (Negative); Leukocyte 500 Leu/uL (Negative); Nitrite 2+ (Negative); Protein, Urine (Dipstick) 20 mg/dL (Neg-Trace); RBC/HPF 0-3 HPF (0-3); Specific Gravity, Urine 1.034 (1.002-1.036); Urobilinogen Normal mg/dL (Less than 2)
[2022-06-23 02:34] LABS: Bacteria/HPF 3+ HPF (None Seen); Squamous Epithelial 0-3 HPF (0-3)
[2022-06-23 06:29] LABS: #Lymphocytes 1.2 thou/uL (1.20-3.40); #Monocytes 2.3 thou/uL (0.11-0.59); #Neutrophils 11.8 thou/uL (1.40-6.50); %Basophils 0.2 % (0.0-1.0); %Eosinophils 0.2 % (0.0-10.0); %Monocytes 14.6 % (0.0-10.0); Hemoglobin 13.8 g/dL (12.0-16.0); Mean Corpuscular HGB CONC 34.9 g/dL (32.0-36.0); Mean Corpuscular Hemoglobin 34.7 pg (27.0-31.0); Mean Corpuscular Volume 99.4 fL (78.0-98.0); Mean Platelet Volume 8.2 fL (7.4-10.4); Platelet Count 357 thou/uL (130-400); RBC Distribution Width 11.8 % (11.5-14.5); Red Blood Cell (RBC) Count 3.98 mill/uL (4.20-5.40); White Blood Cell (WBC) Count 15.4 thou/uL (4.8-10.8)
[2022-06-23 07:42] LABS: Anion Gap 22 mmol/L (10-20); BUN (Urea Nitrogen) 43 mg/dL (9.8-20.1); Calc. Creatinine Clearance 57 mL/min (70-130); Calcium 9.2 mg/dL (7.8-10.44); Carbon Dioxide 14 mmol/L (23-31); Chloride 96 mmol/L (98-107); Estimated GFR 75; Glucose 97 mg/dL (80-115); Potassium 3.6 mmol/L (3.5-5.1); Sodium 128 mmol/L (136-145)
[2022-06-23] MEDS ORDERED: Ondansetron PF 4 MG/2 ML Vial IVP PRN (09:05)
[2022-06-23] MEDS ORDERED: Ondansetron ODT 4 MG TAB PO PRN (09:05)
[2022-06-23] MEDS ORDERED: Senokot S 8.6-50 MG TAB PO PRN (09:05)
[2022-06-23] MEDS ORDERED: cefTRIAXone\\ROCEPHIN 1 GM in Sodium Chloride 0.9% 100 ML IVPB SCH (09:15)
[2022-06-23] MEDS ORDERED: cefTRIAXone\\ROCEPHIN 1 GM VIAL ONE (10:01)
[2022-06-23] MEDS: Sucralfate 1 GM TAB PO SCH ×2 (11:05→16:43)
[2022-06-23 13:37] LABS: Anion Gap 21 mmol/L (10-20); BUN (Urea Nitrogen) 33 mg/dL (9.8-20.1); Calc. Creatinine Clearance 64 mL/min (70-130); Calcium 9.3 mg/dL (7.8-10.44); Carbon Dioxide 12 mmol/L (23-31); Chloride 103 mmol/L (98-107); Estimated GFR 85; Glucose 117 mg/dL (80-115); Potassium 3.4 mmol/L (3.5-5.1); Sodium 133 mmol/L (136-145)
[2022-06-23] MEDS ORDERED: Potassium Chloride 20 MEQ TAB PO SCH (14:30)
[2022-06-23] MEDS ORDERED: Sodium Bicarb 50 MEQ/50 ML Abboject 8.4% SYRINGE IVP SCH (14:30)
[2022-06-23 18:58] LABS: Anion Gap 17 mmol/L (10-20); BUN (Urea Nitrogen) 23 mg/dL (9.8-20.1); Calc. Creatinine Clearance 71 mL/min (70-130); Calcium 8.8 mg/dL (7.8-10.44); Carbon Dioxide 19 mmol/L (23-31); Chloride 99 mmol/L (98-107); Estimated GFR 97; Glucose 122 mg/dL (80-115); Potassium 3.1 mmol/L (3.5-5.1); Sodium 132 mmol/L (136-145)
[2022-06-23] MEDS: DULoxetine 30 MG CAP PO SCH (21:22)
[2022-06-24] MEDS: Sodium Chloride 0.9% 1,000 ML IV SCH ×6 (02:28→22:13)
[2022-06-24] MEDS ORDERED: Potassium Chloride 20 MEQ TAB PO SCH (07:27)
[2022-06-24] MEDS: DULoxetine 30 MG CAP PO SCH ×2 (09:59→22:08)
[2022-06-24] MEDS: cefTRIAXone\\ROCEPHIN 1 GM in Sodium Chloride 0.9% 100 ML IVPB SCH (10:00)
[2022-06-24] MEDS: Sucralfate 1 GM TAB PO SCH ×3 (10:00→18:10)
[2022-06-24] MEDS ORDERED: Lorazepam 2 MG/ML VIAL SLOW IVP ONE (11:30)
[2022-06-24] MEDS ORDERED: Midazolam HCl 2 mg/2 ml Vial SLOW IVP SCH (12:45)
[2022-06-24] MEDS ORDERED: Lorazepam 2 MG/ML VIAL SLOW IVP SCH (19:42)
[2022-06-24] MEDS: Enoxaparin Sodium 40 MG/0.4 ML SYRINGE SC SCH (22:08)
[2022-06-25 02:23] LABS: #Eosinphils 0.1 thou/uL (0.0-0.7); #Lymphocytes 2.1 thou/uL (1.20-3.40); #Monocytes 2.2 thou/uL (0.11-0.59); #Neutrophils 11.9 thou/uL (1.40-6.50); %Basophils 0.1 % (0.0-1.0); %Eosinophils 0.3 % (0.0-10.0); %Monocytes 13.3 % (0.0-10.0); %Neutrophils 73.3 % (42.0-75.0); Hemoglobin 12.1 g/dL (12.0-16.0); Mean Corpuscular HGB CONC 34.8 g/dL (32.0-36.0); Mean Corpuscular Hemoglobin 35.2 pg (27.0-31.0); Mean Platelet Volume 7.3 fL (7.4-10.4); Platelet Count 405 thou/uL (130-400); RBC Distribution Width 11.8 % (11.5-14.5); Red Blood Cell (RBC) Count 3.43 mill/uL (4.20-5.40); White Blood Cell (WBC) Count 16.3 thou/uL (4.8-10.8)
[2022-06-25 02:44] LABS: Anion Gap 20 mmol/L (10-20); BUN (Urea Nitrogen) 6 mg/dL (9.8-20.1); CK (CPK) 124 U/L (29-168); Calc. Creatinine Clearance 86 mL/min (70-130); Calcium 8.9 mg/dL (7.8-10.44); Carbon Dioxide 18 mmol/L (23-31); Chloride 103 mmol/L (98-107); Estimated GFR 102; Glucose 88 mg/dL (80-115); Sodium 138 mmol/L (136-145)
[2022-06-25 02:50] LABS: Potassium 2.6 mmol/L (3.5-5.1)
[2022-06-25] MEDS: Potassium Chloride 20 MEQ in Premix Bag 1 BAG IVPB SCH ×3 (03:27→10:40)
[2022-06-25] MEDS ORDERED: Potassium Chloride 20 MEQ in Premix Bag 1 BAG IVPB SCH (08:00)
[2022-06-25] MEDS: Sucralfate 1 GM TAB PO SCH ×3 (09:26→18:11)
[2022-06-25] MEDS: DULoxetine 30 MG CAP PO SCH ×2 (09:27→20:17)
[2022-06-25] MEDS: cefTRIAXone\\ROCEPHIN 1 GM in Sodium Chloride 0.9% 100 ML IVPB SCH (09:29)
[2022-06-25] MEDS: Sodium Chloride 0.9% 1,000 ML IV SCH ×2 (10:41→18:10)
[2022-06-25 11:49] LABS: Potassium 2.7 mmol/L (3.5-5.1)
[2022-06-25] MEDS ORDERED: Lorazepam 2 MG/ML VIAL SLOW IVP SCH ×2 (14:39→15:37)
[2022-06-25] MEDS: Enoxaparin Sodium 40 MG/0.4 ML SYRINGE SC SCH (20:27)
[2022-06-26 04:36] LABS: Hemoglobin 12.5 g/dL (12.0-16.0); Mean Corpuscular HGB CONC 33.7 g/dL (32.0-36.0); Mean Corpuscular Hemoglobin 34.4 pg (27.0-31.0); Mean Platelet Volume 7.5 fL (7.4-10.4); Platelet Count 481 thou/uL (130-400); RBC Distribution Width 11.8 % (11.5-14.5); Red Blood Cell (RBC) Count 3.62 mill/uL (4.20-5.40); White Blood Cell (WBC) Count 15.8 thou/uL (4.8-10.8)
[2022-06-26 05:01] LABS: Anion Gap 19 mmol/L (10-20); BUN (Urea Nitrogen) 5 mg/dL (9.8-20.1); Calc. Creatinine Clearance 86 mL/min (70-130); Calcium 9.2 mg/dL (7.8-10.44); Carbon Dioxide 19 mmol/L (23-31); Chloride 103 mmol/L (98-107); Estimated GFR 102; Glucose 85 mg/dL (80-115); Sodium 139 mmol/L (136-145)
[2022-06-26 05:06] LABS: Band 9 % (5-11); Lymphocytes 8 % (21-51); MDiff Complete? YES; Metamyelocyte 1 % (0-0); Monocytes 7 % (0-10); Myelocyte 7 % (0-0); Neutrophil 68 % (42-75); Potassium 2.4 mmol/L (3.5-5.1)
[2022-06-26] MEDS ORDERED: Electrolyte Replacement Protocol 1 EACH FS SCH (05:45)
[2022-06-26 06:02] LABS: Magnesium 1.6 mg/dL (1.6-2.6)
[2022-06-26] MEDS: Potassium Chloride 20 MEQ in Premix Bag 1 BAG IVPB SCH ×4 (06:34→14:01)
[2022-06-26] MEDS ORDERED: Magnesium 2 GM/50 ML(in water) 2 GM in Premix Bag 1 BAG IVPB SCH (08:00)
[2022-06-26] MEDS ORDERED: Potassium Chloride 20 MEQ TAB PO SCH ×2 (08:00→17:45)
[2022-06-26] MEDS: Sucralfate 1 GM TAB PO SCH ×4 (08:44→17:15)
[2022-06-26] MEDS: DULoxetine 30 MG CAP PO SCH ×3 (08:45→21:00)
[2022-06-26] MEDS: cefTRIAXone\\ROCEPHIN 1 GM in Sodium Chloride 0.9% 100 ML IVPB SCH (08:45)
[2022-06-26 08:55] LABS: Potassium 2.9 mmol/L (3.5-5.1)
[2022-06-26] MEDS: Sodium Chloride 0.9% 1,000 ML IV SCH (09:00)
[2022-06-26] MEDS ORDERED: hydrALAZINE 20 MG/ML VIAL SLOW IVP SCH (09:19)
[2022-06-26] MEDS: Lorazepam 1 MG TAB PO PRN (11:56)
[2022-06-26 17:10] LABS: Potassium 3.3 mmol/L (3.5-5.1)
[2022-06-26] MEDS ORDERED: Electrolyte Replacement Protocol FS PRN (18:00)
[2022-06-26] MEDS: Acetaminophen 325 MG TAB PO PRN (20:01)
[2022-06-26] MEDS: Enoxaparin Sodium 40 MG/0.4 ML SYRINGE SC SCH (20:01)
[2022-06-27] MEDS: Acetaminophen 325 MG TAB PO PRN ×2 (00:01→04:51)
[2022-06-27] MEDS: Lorazepam 1 MG TAB PO PRN (00:02)
[2022-06-27] MEDS: Lidocaine 5% Patch TD SCH (03:35)
[2022-06-27] MEDS ORDERED: Potassium Chloride 20 MEQ in Premix Bag 1 BAG IVPB SCH (08:00)
[2022-06-27] MEDS ORDERED: Magnesium 2 GM/50 ML(in water) 2 GM in Premix Bag 1 BAG IVPB SCH (08:00)
[2022-06-27] MEDS: cefTRIAXone\\ROCEPHIN 1 GM in Sodium Chloride 0.9% 100 ML IVPB SCH (08:50)
[2022-06-27] MEDS: DULoxetine 30 MG CAP PO SCH ×2 (08:50→20:51)
[2022-06-27] MEDS: Sucralfate 1 GM TAB PO SCH ×3 (08:50→17:46)
[2022-06-27] MEDS ORDERED: Potassium Chloride 20 MEQ TAB PO SCH ×2 (09:00→12:00)
[2022-06-27] MEDS ORDERED: CELECOXIB 100 MG PO PRN (10:42)
[2022-06-27] MEDS: HYDROcodone/Acetaminophen 7.5/325 mg Tablet PO PRN ×2 (11:42→17:45)
[2022-06-27] MEDS: Enoxaparin Sodium 40 MG/0.4 ML SYRINGE SC SCH ×2 (20:51)
[2022-06-27] MEDS: CeleCOXIB 100 MG CAP PO PRN (20:51)
[2022-06-28] MEDS: HYDROcodone/Acetaminophen 7.5/325 mg Tablet PO PRN ×4 (00:10→17:22)
[2022-06-28] MEDS: Lidocaine 5% Patch TD SCH (04:16)
[2022-06-28] MEDS: Sucralfate 1 GM TAB PO SCH ×3 (06:08→17:22)
[2022-06-28 06:44] LABS: Hemoglobin 12.5 g/dL (12.0-16.0); Mean Corpuscular HGB CONC 32.9 g/dL (32.0-36.0); Mean Platelet Volume 7.6 fL (7.4-10.4); Platelet Count 457 thou/uL (130-400); RBC Distribution Width 11.9 % (11.5-14.5); Red Blood Cell (RBC) Count 3.67 mill/uL (4.20-5.40)
[2022-06-28 07:01] LABS: Anion Gap 12 mmol/L (10-20); BUN (Urea Nitrogen) 6 mg/dL (9.8-20.1); Calc. Creatinine Clearance 95 mL/min (70-130); Calcium 9.1 mg/dL (7.8-10.44); Carbon Dioxide 25 mmol/L (23-31); Chloride 101 mmol/L (98-107); Estimated GFR 104; Glucose 100 mg/dL (80-115); Potassium 3.2 mmol/L (3.5-5.1); Sodium 135 mmol/L (136-145)
[2022-06-28] MEDS: DULoxetine 30 MG CAP PO SCH ×2 (08:34→21:03)
[2022-06-28] MEDS: cefTRIAXone\\ROCEPHIN 1 GM in Sodium Chloride 0.9% 100 ML IVPB SCH (09:28)
[2022-06-28] MEDS ORDERED: Potassium Chloride 20 MEQ TAB PO SCH ×2 (12:00→13:45)
[2022-06-28] MEDS: CeleCOXIB 100 MG CAP PO PRN (14:53)
[2022-06-28] MEDS: Enoxaparin Sodium 40 MG/0.4 ML SYRINGE SC SCH (21:02)
[2022-06-28] MEDS: Lorazepam 1 MG TAB PO PRN (21:03)
[2022-06-29] MEDS: HYDROcodone/Acetaminophen 7.5/325 mg Tablet PO PRN ×3 (00:35→10:44)
[2022-06-29] MEDS: Lidocaine 5% Patch TD SCH (04:05)
[2022-06-29] MEDS: Sucralfate 1 GM TAB PO SCH ×2 (06:06→10:45)
[2022-06-29] MEDS: DULoxetine 30 MG CAP PO SCH (08:09)
[2022-06-29] MEDS: cefTRIAXone\\ROCEPHIN 1 GM in Sodium Chloride 0.9% 100 ML IVPB SCH (08:09)
[2022-06-29 08:50] VITALS: TEMP 99.6
[2022-06-29] MEDS: CeleCOXIB 100 MG CAP PO PRN (09:10)
[2022-06-29 12:21] VITALS: BP 121/81
== END 2022-06-29 12:15 | DRG 871 ==
LOC: ERS 19:21 → ERHOLD 23:33 → 2NO 06-23 13:26 → OBSVTOIN 06-23 17:13 → SURG A 06-27 10:41
PROVIDERS: ADMIT Internal Medicine; ATTEND Internal Medicine
DX: A41.51 Sepsis due to Escherichia coli [E. coli] (principal); Z20.822 Contact with and (suspected) exposure to COVID-19; G92.8 Other toxic encephalopathy; E87.1 Hypo-osmolality and hyponatremia; N17.9 Acute kidney failure, unspecified; E87.2 Acidosis; R65.20 Severe sepsis without septic shock; I10 Essential (primary) hypertension; K21.9 Gastro-esophageal reflux disease without esophagitis; F41.9 Anxiety disorder, unspecified; G62.9 Polyneuropathy, unspecified; Z60.2 Problems related to living alone; F32.A Depression, unspecified; G89.29 Other chronic pain; M54.9 Dorsalgia, unspecified; M19.90 Unspecified osteoarthritis, unspecified site; R13.10 Dysphagia, unspecified; M81.0 Age-related osteoporosis without current pathological fracture; R29.6 Repeated falls; E87.6 Hypokalemia; Z91.81 History of falling; Z88.1 Allergy status to other antibiotic agents; Z88.5 Allergy status to narcotic agent; Z79.899 Other long term (current) drug therapy; Z98.890 Other specified postprocedural states; Z82.49 Family history of ischemic heart disease and other diseases of the circulatory system
CPT/HCPCS: 36415; 70450; 70551; 71260; 74177; 80048; 80053; 80306; 80307; 81003; 81015; 82140; 82550; 83690; 83735; 83880; 84484; 85025; 85027; 87040; 87077; 87086; 87186; 93005; 96375; G0378; J0360; J0696; J1650; J2060; J2250; J3475; J3480; J3490; J7050; Q9967; U0003; U0005